=== PATIENT | female | born 1985 | race Caucasian/White ===

== ENCOUNTER 2022-05-08 14:57 | Inpatient (IN) ==
--- NOTE | 2022-05-08 15:18 | Emergency Department Note ---
Impression & Plan Sepsis, Hypomagnesemia, Elevated troponin, Pneumonia, Anemia, IV drug user ED Provider Note Name: VIPUL SKAGGS Age: 36 Sex: F Arrives Via: Ambulance Informant: Patient, EMS ED Provider: Yogesh New MD Chief Complaint: Illness Impression: As per impressions above Medical Decision Makin-year-old female with history of IV drug abuse, anxiety/depression arrives for evaluation of worsening illness over the last few days. She notes increasing edema in her hands and legs over the last month as well. She arrives tachycardic, febrile, mild hypoxia. Her examination reveals diffuse pedal edema poor lung sounds and tachycardia. Septic work-up was initiated and she was given empiric IV Zosyn. She received 2 L IV fluids to cover 30/kg. Her lactate did return elevated. Her initial LFTs are unremarkable. Her laboratory findings reveal normal white blood cell count, severe anemia, normal platelets. There is a single blast cells seen on manual smear. She has no evidence of meningitis, she has a soft nontender abdomen without peritonitis. Chest x-ray does show bilateral pneumonia. I suspect her primary issue is pneumonia causing sepsis. This is in addition to anemia which I suspect may be chronic given heme-negative stool. In the setting of sepsis and acute organ dysfunction I do feel that transfusion is indicated with a hemoglobin less than 8. She was given 1 unit PRBC and a second was crossmatched. She does have an elevated troponin though no chest pain and EKG without acute ischemia this and not feel this is consistent with ACS. Of course endocarditis is concerned and thus vancomycin was also given along with Zosyn. UA is not completely consistent with UTI but she does note she has been having some urinary burning recently. Following IV fluids she actually looks improved though still somewhat tachycardic and febrile . Further fluids were not ordered in the setting of the acute anemia. Prior Medical Record and Triage/Nursing Notes reviewed by Me Additional history obtained from chart Differentials:Viral syndrome, otitis, pharyngitis, pneumonia, influenza, meningitis, urinary tract infection, sepsis, bacteremia, as well as other pathologies. Vital Signs: reviewed and remarkable for fever and tachycardia Interventions: Normal saline bolus 2 L IV, Zosyn 4.5 g IV, vancomycin 20 mg/kg IV. 1 unit PRBCs IV, 1 g magnesium IV Labs:Reviewed and remarkable for extensive laboratory abnormalities including anemia, hypomag amongst multiple others. Imagin view chest x-ray bilateral infiltrates as per radiology EKG:Per My Interpretation: Indication weakness: sinus tach 136 bpm, qtc 469 with poor baseline. RBBB with no ectopy nor acute ischemia. No previous for comparison Cardiac/Tele Monitoring: Cardiac Monitoring: An Order was placed for continuous cardiac monitoring. The monitor shows a rate of 130 with a sinus tach rhythm. Consults:Dr Fabiola Marino/Onc -I discussed the case with sari-onc here at [facility] given the findings of acute anemia and a single blast cell noted. In the setting of severe sepsis and severe anemia he feels that we can keep the p atient here and continue to monitor her CBC before making any determination on whether blast is secondary to acute infection or other cause. Dr[facility] further management. I did discuss the case with critical care who is going to see the patient as well. Plan: Disposition:Hospitalization. Condition: Fair History of Present Illness:36-year-old female arrives for evaluation of illness. Patient notes 3 weeks of increasing swelling of her hands and feet. She states over the last few days increasing fatigue, fevers, chills. She has been using IV fentanyl for quite some time and then today was actually smoking some fentanyl. She called 911 due to feeling so ill. She arrives hypoxic on room air, tachycardic and febrile. She states she feels very unwell. She notes she has been having urinary burning for the last few days and some pain into both her sides. Denies any nausea, vomiting, syncope, chest pain, shortness of breath, headache, neck pain, rashes, bleeding/bruising or other concerning signs or symptoms. She does not have a history of hep C that she is aware of or any history of liver issues. Any exertion makes symptoms worse and rest makes better ROS: See above HPI for pertinent positives & negatives. A total of 10 systems reviewed and were otherwise negative. Past Medical History:IV drug abuse, anxiety/depression Past Surgical History:Denies previous surgeries Family History:Noncontributory/unknown Social History:IV drug abuse, unemployed Home Medications:Suboxone Allergies:No known drug allergies Vitals:Blood Pressure: 136/80, Pulse 138, RR 20, T 38.6C, O2 82% on RA Physical Exam: GENERAL: Patient is ill/unwell appearing and in moderate distress. EYES: No scleral icterus, unremarkable pupils. ENT: Mucous membranes dry, no nasal congestion. NECK: No masses appreciated, nomeningismus, trachea is midline. RESPIRATORY: Tachypnea/dyspnea. Clear to auscultation and equal bilaterally. No wheeze, no rhonchi. CARDIOVASCULAR: Tachy.No murmurs, rubs, gallops appreciated. GASTROINTESTINAL: Abdomen soft, non-tender, no peritonitis.Bowel sounds positive.No masses appreciated. BACK: No midline tenderness, no CVA tenderness EXTREMITIES: Normal motion all extremities, no cyanosis, 4+ edema bilateral lower legs, bilateral hand edema NEUROLOGIC: Alert and oriented, no acute motor or sensory deficits, no focal weakness, cranial nerves grossly intact. SKIN: No rash, no jaundice, no diaphoresis. PSYCH: Appropriate GCS: 15 ED Course: Times/Reassessments: improvement in vitals, feels a bit better. agreeable to hospitalization Critical Care: I have personally spent 35 minutes of critical care time in the direct management of this patient. Severe sepsis secondary to pneumonia in setting of severe anemia require transfusion and resuscitation. This was a life/limb threatening event. This 35 minutes is in excess of all separately billable procedures. Yogesh New MD Past Med/Surg History Social History Smoking Status: Current every day smoker Tobacco Type: Cigarettes Preferred Language: Mongolian Feels Safe at Home: Yes Allergies Allergies Allergy/AdvReac Type Severity Reaction Status Date / Time No Known Allergies Allergy Unknown Verified 05/08/22 16:58 Home Meds Home Medications Medication Instructions Recorded Confirmed No Known Home Medications 05/08/22 05/08/22 Results & Data (ED) Vital Signs Vital Signs - 24 hr 05/08/22 15:13 05/08/22 15:43 05/08/22 15:44 Temperature 39.6 C H Temperature Source Oral Pulse Rate 140 H Pulse Rate [Apical] Respiratory Rate 23 Respiratory Effort / Characteristics Short of Breath Blood Pressure 137/75 Blood Pressure [Left Arm] Blood Pressure Mean 95 Blood Pressure Mean [Left Arm] Blood Pressure Position Sitting Pulse Oximetry 88 L 97 Oxygen Delivery Method Room Air Nasal Cannula Nasal Cannula Oxygen Flow Rate 4 Sepsis Recent Fever Within 48 Hours No Sepsis New/Unexplained Change in Mental Status No Sepsis Action Taken by Nursing Physician Notified 05/08/22 16:49 05/08/22 17:42 05/08/22 17:59 Temperature 37.1 C Temperature Source Oral Pulse Rate 130 H 128 H Pulse Rate [Apical] 132 H Respiratory Rate 18 18 18 Respiratory Effort / Characteristics Blood Pressure 114/70 109/73 Blood Pressure [Left Arm] 117/65 Blood Pressure Mean 84 85 Blood Pressure Mean [Left Arm] 82 Blood Pressure Position Pulse Oximetry 97 100 100 Oxygen Delivery Method Nasal Cannula Oxygen Flow Rate 4 4 4 Sepsis Recent Fever Within 48 Hours Sepsis New/Unexplained Change in Mental Status Sepsis Action Taken by Nursing 05/08/22 18:14 05/08/22 18:44 Temperature 37.1 C 37.2 C Temperature Source Oral Oral Pulse Rate 128 H 128 H Pulse Rate [Apical] Respiratory Rate 18 18 Respiratory Effort / Characteristics Blood Pressure 110/70 112/77 Blood Pressure [Left Arm] Blood Pressure Mean 83 88 Blood Pressure Mean [Left Arm] Blood Pressure Position Pulse Oximetry 99 98 Oxygen Delivery Method Oxygen Flow Rate 4 4 Sepsis Recent Fever Within 48 Hours Sepsis New/Unexplained Change in Mental Status Sepsis Action Taken by Nursing Laboratory Data Result diagrams: 05/08/22 15:30 05/08/22 15:30 Lab Results 05/08/22 05/08/22 05/08/22 Range/Units 15:30 15:30 15:30 WBC 7.02 (4.8-10.8) K/ul RBC 2.30 L (3.93-5.22) M/uL Hgb 6.4 L* (12.0-16.0) g/dl Hct 19.1 L* (34.1-44.9) % MCV 83.0 (80.0-100.0) fL MCH 27.8 (25.0-34.0) pg MCHC 33.5 (32.0-36.0) g/dL RDW Std Deviation 43.4 (36.4-46.3) fL RDW Coeff of Rafiq 14.4 (11.5-14.5) % Plt Count 175 (130-400) K/uL MPV 9.1 L (9.4-12.3) fL Reticulocyte % (Auto) (0.5-2.0) % Reticulocyte # (0.02-0.10) 10^6/uL Neutrophils % (Manual) 94 % Lymphocytes % (Manual) 4 % Metamyelocytes % (Man) 1 % Blast Cells % (Manual) 1 % Neutrophils # (Manual) 6.60 H (1.4-6.5) K/uL Total Absolute Neuts 6.60 H (1.4-6.5) K/uL Lymphocytes # (Manual) 0.28 L (1.2-3.4) K/uL Total Abs Lymphocytes 0.28 L (1.2-3.4) K/uL Metamyelocytes # (Man) 0.07 H (0-0) K/uL Blast Cells # (Man) 0.07 H (0-0) K/uL Blood Smear Review Toxic Granulation 1+ Toxic Vacuolation 2+ Sodium 129 L (136-145) mmol/L Potassium 3.3 L (3.5-5.1) mmol/L Chloride 95 L (98-107) mmol/L Carbon Dioxide 26 (21-32) mmol/L Anion Gap 8 (3-11) BUN 10 (6-23) mg/dl Creatinine 0.43 L (0.6-1.2) mg/dl Est Cr Clr Drug Dosing 140.3 ml/min Est GFR ( Amer) 149.5 ml/min Est GFR (Non-Af Amer) 129.0 ml/min BUN/Creatinine Ratio 23.3 H (10-20) Glucose 160 H (70-99(Fasting)) mg/dl Lactate 2.6 H* (0.4-2.0) mmol/L Calcium 7.8 L (8.5-10.1) mg/dl Magnesium 1.3 L (1.7-2.4) mg/dl Total Bilirubin 1.0 (0.2-1.0) mg/dl Direct Bilirubin 0.3 H (0-0.2) mg/dl AST 16 (13-39) U/L ALT 14 (7-52) U/L Alkaline Phosphatase 132 H (34-104) U/L Total Creatine Kinase (26-192) U/L Troponin I High Sens 69.4 H* (0-14) pg/ml Total Protein 6.6 (6.0-8.3) gm/dl Albumin 2.3 L (3.4-5.0) gm/dl Vitamin B12 (180-914) pg/ml Folate (>5.38) ng/ml Procalcitonin (0-0.5) ng/ml Urine Color Urine Appearance (Clear) Urine pH (4.5-7.5) Ur Specific [place] (1.000-1.030) Urine Protein (Negative) Urine Glucose (UA) (Negative) Urine Ketones (Negative) Urine Blood (Negative) Urine Nitrite (Negative) Urine Bilirubin (Negative) Urine Urobilinogen (Negative) Ur Leukocyte Esterase (Negative) Urine WBC (Auto) (0-5) /hpf Urine RBC (Auto) (0-4) /hpf U Hyaline Cast (Auto) (0-5) /lpf U Epithel Cells (Auto) (0-5) /lpf Urine Bacteria (Auto) (Negative) SARS-CoV-2 (PCR) (Negative) Influenza Type A (PCR) (Neg) Influenza Type B (PCR) (Neg) RSV (RT-PCR) (Neg) Blood Type Blood Type Recheck Antibody Screen Crossmatch 05/08/22 05/08/22 05/08/22 Range/Units 15:30 15:30 15:54 WBC (4.8-10.8) K/ul RBC (3.93-5.22) M/uL Hgb (12.0-16.0) g/dl Hct (34.1-44.9) % MCV (80.0-100.0) fL MCH (25.0-34.0) pg MCHC (32.0-36.0) g/dL RDW Std Deviation (36.4-46.3) fL RDW Coeff of Rafiq (11.5-14.5) % Plt Count (130-400) K/uL MPV (9.4-12.3) fL Reticulocyte % (Auto) 5.3 H (0.5-2.0) % Reticulocyte # 0.12 H (0.02-0.10) 10^6/uL Neutrophils % (Manual) % Lymphocytes % (Manual) % Metamyelocytes % (Man) % Blast Cells % (Manual) % Neutrophils # (Manual) (1.4-6.5) K/uL Total Absolute Neuts (1.4-6.5) K/uL Lymphocytes # (Manual) (1.2-3.4) K/uL Total Abs Lymphocytes (1.2-3.4) K/uL Metamyelocytes # (Man) (0-0) K/uL Blast Cells # (Man) (0-0) K/uL Blood Smear Review Toxic Granulation Toxic Vacuolation Sodium (136-145) mmol/L Potassium (3.5-5.1) mmol/L Chloride (98-107) mmol/L Carbon Dioxide (21-32) mmol/L Anion Gap (3-11) BUN (6-23) mg/dl Creatinine (0.6-1.2) mg/dl Est Cr Clr Drug Dosing ml/min Est GFR ( Amer) ml/min Est GFR (Non-Af Amer) ml/min BUN/Creatinine Ratio (10-20) Glucose (70-99(Fasting)) mg/dl Lactate (0.4-2.0) mmol/L Calcium (8.5-10.1) mg/dl Magnesium (1.7-2.4) mg/dl Total Bilirubin (0.2-1.0) mg/dl Direct Bilirubin (0-0.2) mg/dl AST (13-39) U/L ALT (7-52) U/L Alkaline Phosphatase (34-104) U/L Total Creatine Kinase (26-192) U/L Troponin I High Sens (0-14) pg/ml Total Protein (6.0-8.3) gm/dl Albumin (3.4-5.0) gm/dl Vitamin B12 (180-914) pg/ml Folate (>5.38) ng/ml Procalcitonin 3.99 H (0-0.5) ng/ml Urine Color Urine Appearance (Clear) Urine pH (4.5-7.5) Ur Specific [place] (1.000-1.030) Urine Protein (Negative) Urine Glucose (UA) (Negative) Urine Ketones (Negative) Urine Blood (Negative) Urine Nitrite (Negative) Urine Bilirubin (Negative) Urine Urobilinogen (Negative) Ur Leukocyte Esterase (Negative) Urine WBC (Auto) (0-5) /hpf Urine RBC (Auto) (0-4) /hpf U Hyaline Cast (Auto) (0-5) /lpf U Epithel Cells (Auto) (0-5) /lpf Urine Bacteria (Auto) (Negative) SARS-CoV-2 (PCR) (Negative) Influenza Type A (PCR) (Neg) Influenza Type B (PCR) (Neg) RSV (RT-PCR) (Neg) Blood Type A Positive Blood Type Recheck Antibody Screen NEGATIVE Crossmatch See Detail 05/08/22 05/08/22 05/08/22 Range/Units 16:22 16:43 16:49 WBC (4.8-10.8) K/ul RBC (3.93-5.22) M/uL Hgb (12.0-16.0) g/dl Hct (34.1-44.9) % MCV (80.0-100.0) fL MCH (25.0-34.0) pg MCHC (32.0-36.0) g/dL RDW Std Deviation (36.4-46.3) fL RDW Coeff of Rafiq (11.5-14.5) % Plt Count (130-400) K/uL MPV (9.4-12.3) fL Reticulocyte % (Auto) (0.5-2.0) % Reticulocyte # (0.02-0.10) 10^6/uL Neutrophils % (Manual) % Lymphocytes % (Manual) % Metamyelocytes % (Man) % Blast Cells % (Manual) % Neutrophils # (Manual) (1.4-6.5) K/uL Total Absolute Neuts (1.4-6.5) K/uL Lymphocytes # (Manual) (1.2-3.4) K/uL Total Abs Lymphocytes (1.2-3.4) K/uL Metamyelocytes # (Man) (0-0) K/uL Blast Cells # (Man) (0-0) K/uL Blood Smear Review Toxic Granulation Toxic Vacuolation Sodium (136-145) mmol/L Potassium (3.5-5.1) mmol/L Chloride (98-107) mmol/L Carbon Dioxide (21-32) mmol/L Anion Gap (3-11) BUN (6-23) mg/dl Creatinine (0.6-1.2) mg/dl Est Cr Clr Drug Dosing ml/min Est GFR ( Amer) ml/min Est GFR (Non-Af Amer) ml/min BUN/Creatinine Ratio (10-20) Glucose (70-99(Fasting)) mg/dl Lactate (0.4-2.0) mmol/L Calcium (8.5-10.1) mg/dl Magnesium (1.7-2.4) mg/dl Total Bilirubin (0.2-1.0) mg/dl Direct Bilirubin (0-0.2) mg/dl AST (13-39) U/L ALT (7-52) U/L Alkaline Phosphatase (34-104) U/L Total Creatine Kinase 49 (26-192) U/L Troponin I High Sens (0-14) pg/ml Total Protein (6.0-8.3) gm/dl Albumin (3.4-5.0) gm/dl Vitamin B12 (180-914) pg/ml Folate (>5.38) ng/ml Procalcitonin (0-0.5) ng/ml Urine Color Dark Yellow Urine Appearance Clear (Clear) Urine pH 6.0 (4.5-7.5) Ur Specific [place] 1.013 (1.000-1.030) Urine Protein 1+ H (Negative) Urine Glucose (UA) Negative (Negative) Urine Ketones Negative (Negative) Urine Blood 1+ H (Negative) Urine Nitrite Negative (Negative) Urine Bilirubin Negative (Negative) Urine Urobilinogen Positive H (Negative) Ur Leukocyte Esterase 1+ H (Negative) Urine WBC (Auto) >30 H (0-5) /hpf Urine RBC (Auto) 5-10 H (0-4) /hpf U Hyaline Cast (Auto) 1-5 (0-5) /lpf U Epithel Cells (Auto) >30 H (0-5) /lpf Urine Bacteria (Auto) Negative (Negative) SARS-CoV-2 (PCR) (Negative) Influenza Type A (PCR) (Neg) Influenza Type B (PCR) (Neg) RSV (RT-PCR) (Neg) Blood Type Blood Type Recheck A Positive Antibody Screen Crossmatch 05/08/22 05/08/22 05/08/22 Range/Units 16:50 18:01 18:35 WBC (4.8-10.8) K/ul RBC (3.93-5.22) M/uL Hgb (12.0-16.0) g/dl Hct (34.1-44.9) % MCV (80.0-100.0) fL MCH (25.0-34.0) pg MCHC (32.0-36.0) g/dL RDW Std Deviation (36.4-46.3) fL RDW Coeff of Rafiq (11.5-14.5) % Plt Count (130-400) K/uL MPV (9.4-12.3) fL Reticulocyte % (Auto) (0.5-2.0) % Reticulocyte # (0.02-0.10) 10^6/uL Neutrophils % (Manual) % Lymphocytes % (Manual) % Metamyelocytes % (Man) % Blast Cells % (Manual) % Neutrophils # (Manual) (1.4-6.5) K/uL Total Absolute Neuts (1.4-6.5) K/uL Lymphocytes # (Manual) (1.2-3.4) K/uL Total Abs Lymphocytes (1.2-3.4) K/uL Metamyelocytes # (Man) (0-0) K/uL Blast Cells # (Man) (0-0) K/uL Blood Smear Review Toxic Granulation Toxic Vacuolation Sodium (136-145) mmol/L Potassium (3.5-5.1) mmol/L Chloride (98-107) mmol/L Carbon Dioxide (21-32) mmol/L Anion Gap (3-11) BUN (6-23) mg/dl Creatinine (0.6-1.2) mg/dl Est Cr Clr Drug Dosing ml/min Est GFR ( Amer) ml/min Est GFR (Non-Af Amer) ml/min BUN/Creatinine Ratio (10-20) Glucose (70-99(Fasting)) mg/dl Lactate 3.5 H* (0.4-2.0) mmol/L Calcium (8.5-10.1) mg/dl Magnesium (1.7-2.4) mg/dl Total Bilirubin (0.2-1.0) mg/dl Direct Bilirubin (0-0.2) mg/dl AST (13-39) U/L ALT (7-52) U/L Alkaline Phosphatase (34-104) U/L Total Creatine Kinase (26-192) U/L Troponin I High Sens (0-14) pg/ml Total Protein (6.0-8.3) gm/dl Albumin (3.4-5.0) gm/dl Vitamin B12 445 (180-914) pg/ml Folate > 22.30 (>5.38) ng/ml Procalcitonin (0-0.5) ng/ml Urine Color Urine Appearance (Clear) Urine pH (4.5-7.5) Ur Specific [place] (1.000-1.030) Urine Protein (Negative) Urine Glucose (UA) (Negative) Urine Ketones (Negative) Urine Blood (Negative) Urine Nitrite (Negative) Urine Bilirubin (Negative) Urine Urobilinogen (Negative) Ur Leukocyte Esterase (Negative) Urine WBC (Auto) (0-5) /hpf Urine RBC (Auto) (0-4) /hpf U Hyaline Cast (Auto) (0-5) /lpf U Epithel Cells (Auto) (0-5) /lpf Urine Bacteria (Auto) (Negative) SARS-CoV-2 (PCR) NEGATIVE (Negative) Influenza Type A (PCR) Negative (Neg) Influenza Type B (PCR) Negative (Neg) RSV (RT-PCR) Negative (Neg) Blood Type Blood Type Recheck Antibody Screen Crossmatch Administered Medications Potassium Chloride (K Junaid / Wtr) 10 meq in 100 mls @ 100 mls/hr IV Q1H NICOLE Stop: 05/08/22 21:44 Last Admin: 05/08/22 18:39 Dose: 100 mls/hr Documented By: OL Discontinued Medications Acetaminophen (Acetaminophen 500 Mg Tab) 1,000 mg PO NOW STA Stop: 05/08/22 17:06 Last Admin: 05/08/22 18:26 Dose: 1,000 mg Documented By: OL Sodium Chloride (Nss 1000ml) 1,000 mls @ 999 mls/hr IV .Q1H1M NICOLE Stop: 05/08/22 17:15 Last Infusion: 05/08/22 17:57 Dose: 0 mls/hr Documented By: Admin: 05/08/22 16:52 Dose: 999 mls/hr Documented By: Infusion: 05/08/22 16:50 Dose: 999 mls/hr Documented By: Admin: 05/08/22 15:49 Dose: 999 mls/hr Documented By: OL Piperacillin Sod/Tazobactam Sod (Zosyn) 4.5 gm in 120 mls @ 240 mls/hr IV NOW ONE Stop: 05/08/22 16:38 Last Infusion: 05/08/22 16:58 Dose: 0 mls/hr Documented By: Admin: 05/08/22 16:21 Dose: 240 mls/hr Documented By: AM Vancomycin HCl 1,000 mg/ (Sodium Chloride) 520 mls @ 200 mls/hr IV NOW ONE Stop: 05/08/22 18:44 Last Admin: 05/08/22 17:22 Dose: 200 mls/hr Documented By: OL Magnesium Sulfate/Dextrose (Magnesium Sulfate / D5w) 1 gm in 100 mls @ 100 mls/hr IV NOW STA Stop: 05/08/22 17:44 Last Infusion: 05/08/22 17:57 Dose: 0 mls/hr Documented By: Admin: 05/08/22 16:52 Dose: 100 mls/hr Documented By: OL Magnesium Sulfate/Dextrose (Magnesium Sulfate / D5w) 1 gm in 100 mls @ 50 mls/hr IV Q2H NICOLE Stop: 05/08/22 19:44 Last Admin: 05/08/22 18:57 Dose: 50 mls/hr Documented By: OL Imaging Data Radiologist's Impression: Chest X-Ray 05/08/22 15:12 SINGLE VIEW CHEST CLINICAL HISTORY: Sepsis. FINDINGS: An AP, portable, upright chest radiograph is obtained. No prior studies are available for comparison at the time of dictation. The cardiomediastinal silhouette is unremarkable. Multifocal airspace consolidation is seen throughout both lungs. No large pleural effusion or pneumothorax is lauren ntified. The bony thorax is grossly intact. IMPRESSION: Multifocal airspace consolidation is seen throughout both lungs. Given the history of sepsis this likely represents multifocal pneumonia. Radiographic follow-up to resolution is recommended to exclude the possibility o f underlying pulmonary lesions. ACT 112: Negative or not required by law. Electronically signed by: Dano Roman M.D. 05/08/2022 4:00 PM Discharge Plan Visit Data Chief Complaint: Overdose (Accidental) ED Provider: Yogesh New Discharge Problem: Sepsis, Hypomagnesemia, Elevated troponin, Pneumonia, Anemia, IV drug user Forms Stand Alone Forms: Double Encore Prescriptions Prescriptions: No Action No Known Home Medications Referrals Referrals: Lenny Cleary MD [Primary Care Provider] -
[2022-05-08] MEDS: SODIUM CHLORIDE 0.9% 1000ML 1,000 ML IV SCH ×2 (15:49→16:52)
--- NOTE | 2022-05-08 16:01 | XRay Report ---
SINGLE VIEW CHEST CLINICAL HISTORY: Sepsis. FINDINGS: An AP, portable, upright chest radiograph is obtained. No prior studies are available for c omparison at the time of dictation. The cardiomediastinal silhouette is unremarkable. Multifocal airs pace consolidation is seen throughout both lungs. No large pleural effusion or pneumothorax is identi fied. The bony thorax is grossly intact. IMPRESSION: Multifocal airspace consolidation is seen throughout both lungs. Given the history of sep sis this likely represents multifocal pneumonia. Radiographic follow-up to resolution is recommended to exclude the possibility of underlying pulmonary lesions. ACT 112: Negative or not required by law. Electronically signed by: Dano Roman M.D. 05/08/2022 4:00 PM
[2022-05-08] MEDS ORDERED: VANCOMYCIN CONSULT ACTIVE PRN (16:09)
[2022-05-08] MEDS ORDERED: VANCOMYCIN HCL 1,000 MG in SODIUM CHLORIDE 0.9% 500 ML IV ONE (16:09)
[2022-05-08] MEDS ORDERED: PIPERACILLIN/TAZOBACTAM 4.5 GM/120 ML BAG IV ONE (16:09)
[2022-05-08 16:25] LABS: Albumin Level 2.3 gm/dl (3.4-5.0); BUN Creatinine Ratio 23.3 (10-20); Bilirubin Direct 0.3 mg/dl (0-0.2); Calcium 7.8 mg/dl (8.5-10.1); Creatinine Clr Calc Pharmacy 140.3 ml/min; Est GFR (African American) 149.5 ml/min; Magnesium 1.3 mg/dl (1.7-2.4); Potassium 3.3 mmol/L (3.5-5.1); Total Protein 6.6 gm/dl (6.0-8.3)
[2022-05-08] MEDS ORDERED: SODIUM CHLORIDE 0.9% 250 ML IV PRN ×2 (16:32→21:11)
[2022-05-08 16:33] LABS: Hematocrit (blood only) 19.1 % (34.1-44.9); Hemoglobin 6.4 g/dl (12.0-16.0); Mean Corpuscular Hemoglobin 27.8 pg (25.0-34.0); Mean Corpuscular Hgb Conc 33.5 g/dL (32.0-36.0); Mean Platelet Volume 9.1 fL (9.4-12.3); Platelet Count 175 K/uL (130-400); RDW Coefficient of Variation 14.4 % (11.5-14.5); RDW Standard Deviation 43.4 fL (36.4-46.3); White Blood Count 7.02 K/ul (4.8-10.8)
[2022-05-08 16:35] LABS: ALC (manual) 0.28 K/uL (1.2-3.4); Blast # (manual) 0.07 K/uL (0-0); Blast Cells % (manual) 1 %; Lymphocytes # (manual) 0.28 K/uL (1.2-3.4); Lymphocytes % (manual) 4 %; Metamyelocytes # (manual) 0.07 K/uL (0-0); Metamyelocytes % (manual) 1 %; Neutrophils % (manual) 94 %; Toxic Granulation 1+; Toxic Vacuolation 2+
[2022-05-08] MEDS ORDERED: MAGNESIUM SULFATE / D5W 1 GM/100 ML BAG IV STA (16:45)
[2022-05-08 16:48] LABS: Appearance Urine Clear (Clear); Bacteria Urine Automated Negative (Negative); Bilirubin Urine Negative (Negative); Blood Urine 1+ (Negative); Color Urine Dark Yellow; Epithelial Cell Urine Auto >30 /lpf (0-5); Glucose Urine UA Negative (Negative); Ketones Urine Negative (Negative); Leukocyte Esterase Urine 1+ (Negative); Nitrite Urine Negative (Negative); Protein Urine 1+ (Negative); Specific Gravity Urine 1.013 (1.000-1.030); Urobilinogen Urine Positive (Negative); WBC Urine Automated >30 /hpf (0-5)
[2022-05-08 16:50] LABS: Reticulocyte % 5.3 % (0.5-2.0); Reticulocytes # 0.12 10^6/uL (0.02-0.10)
[2022-05-08] MEDS ORDERED: ACETAMINOPHEN 500 MG TAB PO STA (17:05)
[2022-05-08] MEDS ORDERED: NORMOSOL-R 1,000 ML IV ONE ×2 (17:16→20:54)
[2022-05-08] MEDS ORDERED: MAGNESIUM SULFATE / D5W 1 GM/100 ML BAG IV SCH (17:45)
[2022-05-08 17:49] LABS: Vitamin B12 445 pg/ml (180-914)
[2022-05-08] MEDS: POTASSIUM CHLORIDE / WTR 10 MEQ/100 ML PLCT IV SCH ×3 (18:39→22:15)
--- NOTE | 2022-05-08 18:41 | Critical Care Consultation ---
Date of Consultation May 08, 2022 Assessment & Plan (1) Sepsis: Reason Critically Ill: 36-year-old female here with a PMHx significant for IV drug use, anxiety and depression, who presented with fatigue and lethargy and who was admitted for management of methamphetamine withdrawal, sepsis. Neuro - [facility] ICU: NEGATIVE Sedation: None Analgesia: None * Cardiac - Tachycardia: Suspect this is compensatory, given patient's poor p.o. intake and peripheral edema. However, this could also represent start of opiate/benzodiazepine withdrawal (vs infection). Low suspicion for GI bleed, as fecal occult blood test negative for heme. * IV fluid resuscitation as needed * EKG as needed Elevated troponin: Suspect demand ischemia, again given the absence of chest pain, overall noncardiac presentation. * Repeat troponin Q6. Discontinue labs if plateauing or downtrending. Respiratory - Acute hypoxic respiratory failure: Could be 2/2 to multifocal pneumonia. Fatigue, hypoxia could also be 2/2 bacterial endocarditis, given patient's history of IV drug use. * Continue O2 support via nasal cannula. Wean as tolerated. * CT angio per PE protocol * Echocardiogram * Empiric antimicrobial coverage: Zosyn, vancomycin GI - RUQ pain: Etiology unclear. Patient did not appear to have suprapubic pain on exam. * CT abdomen/pelvis * Bowel regimen for constipation * N.p.o. RENAL/LYTES - Hypomagnesemia, hypokalemia, hyponatremia * Trend BMP. Replace lytes as needed. - Asymptomatic bacteriuria: UA positive for leukocyte esterase, protein. Patient, however, is asymptomatic. * Awaiting urine culture results * Rodrigues catheter ENDO - * HEME - Anemia: Unclear etiology, though suspect hepatic process (cirrhosis, hep C). FOBT negative. Now s/p pRBC x2 units. * Trend CBC. Transfuse as needed. * Path consult peripheral smear for blast cells seen on CBC. ID - Pneumonia: * Empiric coverage with Zosyn, vancomycin. Awaiting blood culture results, sensitivities. INTEGUMENTARY - * LINES/IV ACCESS - PIVs intact. DVT PROPHYLAXIS - * Heparin gtt. Thank you for allowing us to be part of this patient's care. Please refer to Dr. Baum's documentation for any further recommendations. (2) Anemia: (3) Abdominal pain: (4) Pedal edema: (5) IV drug user: (6) Hypomagnesemia: (7) Elevated troponin: (8) Fever: (9) Pneumonia: Supervising Physician Co-Signing Physician Notes I was advised of this patient by telephone. Obtained advanced imaging to [facility] er evaluate for probable septic emboli. Empiric broad-spectrum antibiotics. Echo ordered. Will need resuscitation and evaluation for possible evaluation by CT surgery should there be severe tyonek valve infective endocarditis. History of Present Illness History of Present Illness Minerva is a 36-year-old woman history of IV drug use, anxiety, and depression, who came to the emergency room with a complaint of fatigue and illness. She reports her symptoms began 4 days ago after smoking fentanyl, which she also uses in IV form. She experienced severe right-sided back pain without radiation that became radiating a day later, before resolving. She also reports profound fatigue and swelling of her hands and feet, also x4 days. She says this had never happened to her before. She denies nausea, headache, lightheadedness, chest pain, blood in stool, or back/flank pain. ED course was notable for tachycardia, hypoxia, and a fever of 39.6 C. Labs were notable for anemia of 6.8, lactate of 2.6, troponin of 69.4, urine drug screen positive for methamphetamines, MDMA, and benzodiazepines. CXR showed bilateral multifocal airspace consolidation concerning for multifocal pneumonia. She received pRBC x2 units, Normosol bolus x1, and was started on empiric antibiotics (Zosyn, vancomycin). ICU was consulted for transfer for management of fentanyl withdrawal, sepsis. Allergies Allergy/AdvReac Type Severity Reaction Status Date / Time No Known Allergies Allergy Unknown Verified 05/08/22 16:58 Home Medications Medication Instructions Recorded Confirmed Type No Known Home Medications 05/08/22 05/08/22 History Patient History Medical History Anxiety Depression Drug abuse Fentanyl -IV and smoking IV drug user Surgical History No significant past surgical history Family History (Updated 05/08/22 @ 19:51 by BRETT Vázquez) Aunt Cancer Social History Smoking Status: Current every day smoker Tobacco Type: Cigarettes Second Hand Exposure: No; Do You Dip or Chew Tobacco: No; Tobacco Cessation Education Requested by Patient: No Hx Alcohol Use: No Hx Substance Use: Yes Non-Prescribed Medications: Inhalents and IV Drugs Non- Prescribed Medications Comment: Fentanyl Last Used Substance: Just Prior to Arrival Last Used Substance Other:: Pt stated that she smoked Fentanyl at noon prior to calling EMS Preferred Language: Occitan Communication Ability: Effective Marketing Secretary Required: No Beliefs That Will Affect Care: None Current Living Situation: Alone Feels Safe at Home: Yes Safety Concerns: Feels Safe At This Time Assistive Devices: None Review of Systems Review of Systems: All systems reviewed & are unremarkable except as noted in HPI & below Physical Exam Physical Exam: General: Gaunt, ill-appearing woman, who is otherwise alert, oriented and in no acute distress. HEENT: Poor dentition, with profound enamel erosion. Dry mucous membranes. Neck: Normal ROM. CV: Tachycardic, regular rhythm. No murmurs gallops or rubs. Respiratory: Normal respiratory effort. Lungs noisy on auscultation. Unable to appreciate crackles, rhonchi, or wheezes. Abdomen: Soft, nondistended abdomen. No bruits heard on auscultation. RUQ tenderness to mild/moderate palpation. No suprapubic tenderness. No guarding or rebound. Extremities: Capillary refill <2 sec. 2+ dp equal bilaterally. Bilateral pitting pedal edema, L >R. Neuro: Alert and oriented x3. Skin: No rashes, bruises, or erythema. Results & Data Results & Data ([facility]) Vital Signs (Past 12 Hours) Vital Signs Temp Pulse Pulse Resp BP BP Pulse Ox 05/08/22 18:14 37.1 C 128 H 18 110/70 99 05/08/22 17:59 37.1 C 128 H 18 109/73 100 05/08/22 17:42 130 H 18 114/70 100 05/08/22 16:49 132 H 18 117/65 97 05/08/22 15:44 97 05/08/22 15:43 05/08/22 15:13 39.6 C H 140 H 23 137/75 88 L O2 Del Method O2 Flow Rate 05/08/22 18:14 4 05/08/22 17:59 4 05/08/22 17:42 4 05/08/22 16:49 Nasal Cannula 4 05/08/22 15:44 Nasal Cannula 05/08/22 15:43 Nasal Cannula 4 05/08/22 15:13 Room Air Resident Activity Tracking Resident Involvement: Resident Care Provided Care Provided: Adult Hospital Medicine
[2022-05-08 19:40] LABS: Influenza A virus by PCR Negative (Neg); Influenza B virus by PCR Negative (Neg); RSV by PCR Negative (Neg); SARS CoV2 RNA(COVID-19) InHosp NEGATIVE (Negative)
--- NOTE | 2022-05-08 20:03 | History & Physical Report ---
Date of Service May 08, 2022 Assessment & Plan (1) Severe sepsis: (2) Pneumonia: (3) Acute respiratory failure with hypoxia: Plan: Admit ICU Patient presenting from home with reports of generalized weakness and body aches. In the ED, found to be febrile and tachycardic with elevated lactic acid. CXR shows multifocal pneumonia Patient hypoxic on room air at 88%, currently requiring 4 L via nasal cannula. S/p Vanco and Zosyn in the ED, continue with Follow urine and blood cultures Continue IVF resuscitation, trend lactate Given history of IV drug abuse, concern for possible septic pulmonary embolism. CTA chest ordered as well as CT ABD/pelvis. Echocardiogram to evaluate for endocarditis Case discussed with Dr. Baum (4) Anemia: Plan: Hgb 6.4. Platelets stable at 175K. Stool heme-negative in ED Single blast cells noted on differential. ED discussed with hematology --this is likely felt to be due to sepsis. Will trend it differential continue to monitor. Given history of IV drug abuse, concern for possible hemolytic anemia secondary to endocarditis Transfuse 1 unit PRBC Follow CBC (5) IV drug user: Plan: Patient reports using fentanyl --last IV usage was about 1 month ago, patient reports she currently smokes fentanyl " all day long". Last use being just prior to arrival. (6) Elevated troponin: Plan: HS trop 69.4 Likely demand ischemia in the setting of sepsis Continue to trend troponin (7) Electrolyte abnormality: Plan: Na+ 129, K+ 3.3, Mg +1.4 Replace, follow BMP (8) Lower extremity edema: Plan: Etiology unclear at this time Consider BL LE Doppler Echo Also noted to have hypoalbuminemia (9) DVT prophylaxis: Plan: SCDs due to anemia History of Present Illness Chief Complaint: Weakness, body aches Primary Care Provider: Lenny Cleary MD 36-year-old female with PMH depression, anxiety, drug abuse (fentanyl via IV and smoking), and other problems listed below who presents to the ED for evaluation of generalized weakness and body aches. Patient reports that she has been feeling sick for about the past 1 month. Patient was seen at [facility] and diagnosed with pneumonia and UTI. Patient was discharged on prednisone and levofloxacin. Patient reports completing both courses of the medications. Patient reports no improvement in her symptoms. She reports feeling extremely weak. She also notes body aches and feeling feverish however did not check her temperature. She reports a productive cough. She states that she has bilateral lower rib pain with taking a deep breath. Patient is noted to have bilateral lower extremity edema on exam. She states this has been present for about the past 1 week. No chest pain or palpitations. Denies lightheadedness, dizziness, diaphoresis, syncopal events. No abdominal pain, nausea, vomiting, diarrhea. Denies urinary symptoms. Patient states she last used IV fentanyl about 1 month ago however smokes fentanyl " all day long", last using this morning prior to calling EMS. In the ED, patient was found febrile at 39.6, tachycardic, elevated lactate. Labs also show anemia with Hgb 6.4. Differential shows a single blast cell. There are several electrolyte abnormalities noted with Na+ 129, K+ 3.3, Mg +1.3, CA +7.8. HS troponin 69.4. Allergies Allergy/AdvReac Type Severity Reaction Status Date / Time No Known Allergies Allergy Unknown Verified 05/08/22 16:58 Home Medications Medication Instructions Recorded Confirmed Type No Known Home Medications 05/08/22 05/08/22 History Past Med/Surg History Medical History Anxiety Depression Drug abuse Fentanyl -IV and smoking IV drug user Surgical History No significant past surgical history Family History (Updated 05/08/22 @ 19:51 by BRETT Vázquez) Aunt Cancer Social History Smoking Status: Current every day smoker Tobacco Type: Cigarettes Second Hand Exposure: No; Do You Dip or Chew Tobacco: No; Tobacco Cessation Education Requested by Patient: No Hx Alcohol Use: No Hx Substance Use: Yes Non-Prescribed Medications: Inhalents and IV Drugs Non-Prescribed Medications Comment: Fentanyl Last Used Substance: Just Prior to Arrival Last Used Substance Other:: Pt stated that she smoked Fentanyl at noon prior to calling EMS Preferred Language: Iraqi Communication Ability: Effective Director Life Insurance Required: No Beliefs That Will Affect Care: None Current Living Situation: Alone Feels Safe at Home: Yes Safety Concerns: Feels Safe At This Time Assistive Devices: None Review of Systems Review of Systems: ROS per HPI, all other systems reviewed and negative Physical Exam Constitutional: WD/WN, vitals as above + ill appearing and + disheveled; no acute distress Eyes: PERRL, conjunctivae normal, anicteric sclerae ENMT: external ear and nose normal, oropharynx normal Mouth: + poor dentition Respiratory: normal respiratory effort; no respiratory distress Auscul tation: + rhonchi (Bilateral bases) Cardiovascular: Rate/Rhythm: regular rhythm and + tachycardic Vessels: normal peripheral pulses Extremities: + edema (+2-3 edema BLE) Gastrointestinal (Abdomen): normal bowel sounds, soft, nontender, no hepatosplenomegaly Musculoskeletal: no cyanosis or clubbing, extremities motor strength 5/5 Skin: no rashes, warm and dry Neurologic: PERRL, EOMI, accommodation nl, no face palsy, no dysarthria Psychiatric: Orientation: alert and oriented x 3 Affect: + anxious affect and + tearful affect Results & Data Results & Data ([facility]) Vital Signs (Past 12 Hours) Vital Signs Temp Pulse Pulse Resp BP BP Pulse Ox 05/08/22 18:44 37.2 C 128 H 18 112/77 98 05/08/22 18:14 37.1 C 128 H 18 110/70 99 05/08/22 17:59 37.1 C 128 H 18 109/73 100 05/08/22 17:42 130 H 18 114/70 100 05/08/22 16:49 132 H 18 117/65 97 05/08/22 15:44 97 05/08/22 15:43 05/08/22 15:13 39.6 C H 140 H 23 137/75 88 L O2 Del Method O2 Flow Rate 05/08/22 18:44 4 05/08/22 18:14 4 05/08/22 17:59 4 05/08/22 17:42 4 05/08/22 16:49 Nasal Cannula 4 05/08/22 15:44 Nasal Cannula 05/08/22 15:43 Nasal Cannula 4 05/08/22 15:13 Room Air Laboratory Results Short CBC 05/08/22 Range/Units 15:30 WBC 7.02 (4.8-10.8) K/ul Hgb 6.4 L* (12.0-16.0) g/dl Hct 19.1 L* (34.1-44.9) % Plt Count 175 (130-400) K/uL BMP 05/08/22 15:30 Sodium 129 L Potassium 3.3 L Chloride 95 L Carbon Dioxide 26 BUN 10 Creatinine 0.43 L Glucose 160 H Calcium 7.8 L Cardiac Enzymes 05/08/22 Range/Units 16:49 Total Creatine Kinase 49 (26-192) U/L Liver Function 05/08/22 Range/Units 15:30 Total Bilirubin 1.0 (0.2-1.0) mg/dl Direct Bilirubin 0.3 H (0-0.2) mg/dl AST 16 (13-39) U/L ALT 14 (7-52) U/L Alkaline Phosphatase 132 H (34-104) U/L Albumin 2.3 L (3.4-5.0) gm/dl Urine 05/08/22 Range/Units 16:22 Urine Color Dark Yellow Urine Appearance Clear (Clear) Urine pH 6.0 (4.5-7.5) Ur Specific [place] 1.013 (1.000-1.030) Urine Protein 1+ H (Negative) Urine Glucose (UA) Negative (Negative) Diagnostic Findings Chest X-Ray 05/08/22 15:12 SINGLE VIEW CHEST CLINICAL HISTORY: Sepsis. FINDINGS: An AP, portable, upright chest radiograph is obtained. No prior studies are available for comparison at the time of dictation. The cardiomediastinal silhouette is unremarkable. Multifocal airspace consolidation is seen throughout both lungs. No large pleural effusion or pneumothorax is identified. The bony thorax is grossly intact. IMPRESSION: Multifocal airspace consolidation is seen throughout both lungs. Given the history of sepsis this likely represents multifocal pneumonia. Radiographic follow-up to resolution is recommended to exclude the possibility of underlying pulmonary lesions. ACT 112: Negative or not required by law. Electronically signed by: Dano Roman M.D. 05/08/2022 4:00 PM Code Status & VTE Plan VTE Prophylaxis Plan VTE Prophylaxis will be ordered: Yes Supervising Physician Co-Signing Physician Notes This patient is a 36-year-old drug abuser who smokes fentanyl powder with occasional IV drug use who presents with severe sepsis, pneumonia and acute respiratory failure with hypoxia. Chest x-ray reveals multifocal pneumonia and she is requiring supplemental oxygen. She is a poor historian but denies that she was trying to hurt her self. She states that since the age of 18 she has been using drugs as she was unable to deal with her mother's . She reports having children of her own and states that her child just had her first grandbaby. She has anemia with differential showing concern for blast cells. Peripheral smear has been ordered. Hemolytic anemia also considered. No evidence of GI blood loss at this time. In the ER she was transfused 1 unit of PRBCs. She reports that she would like to get off fentanyl and is interested in rehab. We discussed that there are options for subsidized payment. Currently she is mostly upset about withdrawal symptoms including hot flashes and generalized pain. She has multiple electrolytes abnormalities as above. On physical exam she is well-nourished well-developed and in mild distress. She appears to be mentating normally and cardiopulmonary exam is within normal limits. She has poor dentition and evidence of dehydration with crusting around the mouth. Overall she is being admitted to the ICU with multiple systems affected. She is tachycardic, withdrawing from fentanyl, has elevated troponin likely suspicious of demand ischemia. Possibility of endocarditis is also present which may be contributing to a hemolytic anemia picture. She may have some acute malignancy with the evidence of the blast cell although this may also be from sepsis. She has pneumonia concerning for possible septic embolus and is requiring oxygen supplementation. She has multiple electrolyte abnormalities present. Please see ICU admission note for additional plan specifics. DO Enrrique
[2022-05-08] MEDS ORDERED: OPTIRAY 320 500ml IV ONE (20:24)
[2022-05-08 20:44] LABS: Amphetamines+Metham, Urine Neg (Neg); Barbiturates, Urine Neg (Neg); Benzodiazepine, Urine Neg (Neg); Cocaine, Urine Neg (Neg); MDMA (Ecstacy), Urine Pos (Neg); Methadone, Urine Neg (Neg); Opiate, Urine Neg (Neg); Phencyclidine, Urine Neg (Neg)
[2022-05-08] MEDS ORDERED: ICU PROTOCOL FOR HYPERGLYCEMIA PRN (20:54)
--- NOTE | 2022-05-08 20:56 | CT Scan Report ---
CT ANGIOGRAPHY OF THE CHEST, PULMONARY EMBOLUS PROTOCOL CLINICAL HISTORY: Sepsis. COMPARISON STUDY: Chest radiograph performed earlier today. TECHNIQUE: Following IV administration of 114 mL of Optiray, helical axial images of the chest were o btained utilizing the pulmonary embolus protocol. Maximal intensity projections and sagittal and cor onal reformats were viewed on an independent 3D workstation. IV contrast was administered without co mplication. Automated exposure control was utilized for the study. A dose lowering technique was ut ilized adhering to the principles of ALARA. CT DOSE: 549.27 mGy.cm FINDINGS: Note is made of multiple pulmonary emboli. These are most numerous within the bilateral lo wer lobes. These include emboli within the left lower lobe pulmonary artery. In addition, there are n umerous ill-defined nodules, many of which are cavitary, as well as cavitary foci of consolidation wi thin the lungs. These include a 3.9 cm irregular cavitary focus of consolidation within the left lung apex. Small bilateral pleural effusions are noted. Lungs are suboptimally assessed due to respirator y motion. There is underlying emphysema. Small bilateral pleural effusions are present. There is no p neumothorax. There is no thoracic aortic dissection. Size of the heart is normal. No definite CT evid ence for right heart strain. There are mildly enlarged mediastinal and bilateral hilar lymph nodes. P lease note that the abdomen and pelvis CT will be reported separately. IMPRESSION: 1. Numerous bilateral pulmonary emboli, as described above. These favor septic pulmonary emboli. Find ings discussed with Dr. Baum at time of dictation. 2. Multifocal cavitary consolidation and cavitary nodules consistent with septic pulmonary emboli. An underlying neoplasm is considered much less likely however a follow-up chest CT in 2 months to ensur e resolution is recommended. 3. Small bilateral pleural effusions. No pneumothorax. 4. Emphysema. 5. Mildly enlarged mediastinal and bilateral hilar lymph nodes. These are probably reactive but shoul d be assessed on follow-up chest CT. ACT 112: Negative or not required by law. Electronically signed by: Lazaro Askew M.D. 05/08/2022 8:54 PM
[2022-05-08] MEDS ORDERED: HEPARIN SOD (PORCINE) 1000 UNIT/ML IV ONE (21:15)
--- NOTE | 2022-05-08 21:18 | CT Scan Report ---
CT OF THE ABDOMEN AND PELVIS WITH CONTRAST CLINICAL HISTORY: Sepsis. COMPARISON STUDY: None. TECHNIQUE: Following IV administration of 114 mL of Optiray, axial images of the abdomen and pelvis w ere obtained from the lung bases to the proximal femurs. Images were reviewed in the axial, sagittal, and coronal planes. IV contrast was administered without complication. Automated exposure control w as utilized for the study. A dose lowering technique was utilized adhering to the principles of BECCA Cuevas. FINDINGS: Please note that the chest CT will be reported separately. Numerous pulmonary emboli with c avitary pulmonary nodules and cavitary foci of consolidation are better depicted on that exam. There is emphysema. Small bilateral pleural effusions are present. No pneumatosis, free air or portal venous gas is present. Periportal edema is noted. Gallbladder wall thickening is also present. There are no hepatic lesions. There is mild hepatosplenomegaly. Several small hypodense wedge-shaped subcapsular foci within the spleen measure up to 2.6 cm. These favor spl enic infarcts. There is no biliary or pancreatic ductal dilatation. Adrenal glands and pancreas are u nremarkable. A 4 mm left renal calculus is present. There is no hydronephrosis. Both nephrograms appe ar striated. There is no renal abscess. A small amount of abdominal and pelvic ascites is present. Th ere is no fluid collection to suggest an abscess. There is gas within the vagina. No evidence for a b owel obstruction. Wall thickening of the ascending colon and proximal to mid transverse colon is note d. This may be due to underdistention. Major vasculature within the abdomen and pelvis is grossly pat ent. No acute fracture or suspicious lesion is identified within the visualized skeletal structures. IMPRESSION: 1. Multiple small subcapsular wedge-shaped hypodense foci within the spleen suggestive of splenic inf arcts, possibly septic. Hepatosplenomegaly. 2. Numerous pulmonary emboli with multifocal cavitary nodules and cavitary consolidation. The finding s represent septic pulmonary emboli, better depicted on the chest CT which will be reported separatel y. 3. Bilateral striated nephrograms. Renal involvement with pyelonephritis cannot be excluded. No renal abscess. 4. Right colon wall thickening. This is probably due to underdistention however a nonspecific colitis could appear similar. No bowel obstruction. 5. Small amount of ascites. Periportal edema and gallbladder wall thickening which may be related to hydration. Mild gallbladder distention. Findings discussed with Dr. Baum at time of dictation. ACT 112: Negative or not required by law. Electronically signed by: Lazaro Askew M.D. 05/08/2022 9:16 PM
[2022-05-08] MEDS: VANCOMYCIN HCL 1,500 MG in SODIUM CHLORIDE 0.9% 500 ML IV SCH (21:20)
[2022-05-08] MEDS: PIPERACILLIN/TAZOBACTAM 4.5 GM in DEXTROSE 5% 100 ML IV SCH (21:27)
[2022-05-08 22:28] LABS: INR 1.3 (0.9-1.1); Partial Thromboplastin Ratio 1.6; Partial Thromboplastin Time 43.3 Seconds (21.0-31.0)
[2022-05-08] MEDS: HEPARIN SODIUM/DEXTROSE 25,000 UNITS/500 ML BAG IV SCH (22:30)
[2022-05-08] MEDS: NORMOSOL-R 1,000 ML IV SCH (22:31)
[2022-05-08] MEDS ORDERED: Ativan PO Alcohol Withdrawal--Active Protocol PO PRN (22:45)
[2022-05-08] MEDS ORDERED: LORazepam 1 MG TAB PO PRN (22:45)
[2022-05-08] MEDS: Heparin IV Adult Wt-Based Standard WITH Bolus Protocol IV SCH ×2 (22:49→22:50)
[2022-05-08] MEDS ORDERED: LORazepam 1 MG in SYRINGE 0 ML IV PRN (22:49)
[2022-05-08] MEDS ORDERED: Ativan IV Alcohol Withdrawal--Active Protocol IV PRN (22:49)
[2022-05-08] MEDS ORDERED: LORazepam 3 MG in SYRINGE 0 ML IV PRN (22:49)
[2022-05-08] MEDS: LORazepam 2 MG in SYRINGE 0 ML IV PRN (23:03)
[2022-05-09] MEDS: THIAMINE HCL 100 MG in SYRINGE 9 ML IV SCH ×2 (00:11→12:18)
[2022-05-09] MEDS: POTASSIUM CHLORIDE / WTR 10 MEQ/100 ML PLCT IV SCH ×7 (00:12→11:57)
[2022-05-09] MEDS: LORazepam 2 MG in SYRINGE 0 ML IV PRN (00:35)
[2022-05-09 01:15] LABS: BUN Creatinine Ratio 22.7 (10-20); Creatinine Clr Calc Pharmacy 139.6 ml/min; Est GFR (African American) 148.4 ml/min; Est GFR (Non-African American) 128.1 ml/min; Magnesium 1.9 mg/dl (1.7-2.4); Potassium 3.4 mmol/L (3.5-5.1)
[2022-05-09] MEDS ORDERED: MAGNESIUM SULFATE / D5W 1 GM/100 ML BAG IV ONE (01:23)
[2022-05-09] MEDS ORDERED: STAT IV Infusion **Titration per Protocol STA (01:45)
[2022-05-09] MEDS: dexMEDEtomidine 200 MCG/50 ML BAG IV SCH ×2 (02:36→06:07)
[2022-05-09 02:56] LABS: A calco-baum cmplx NotReported Not Detected (NotDetected); Bact fragilis Not Reported Not Detected (NotDetected); C auris Not Reported Not Detected (NotDetected); Calbicans Not Reported Not Detected (NotDetected); Candida glabrata Not Reported Not Detected (NotDetected); Candida krusei Not Reported Not Detected (NotDetected); Cneoformans/gatti Not Reported Not Detected (NotDetected); Cparapsilosis Not Reported Not Detected (NotDetected); Ctropicalis Not Reported Not Detected (NotDetected); E cloacae compx Not Reported Not Detected (NotDetected); Efaecalis Not Reported Not Detected (NotDetected); Efaecium Not Reported Not Detected (NotDetected); Enterobacterales Not Reported Not Detected (NotDetected); Escherichia coli Not Reported Not Detected (NotDetected); H influenzae Not Reported Not Detected (NotDetected); K aerogenes Not Reported Not Detected (NotDetected); Koxytoca Not Reported Not Detected (NotDetected); Kpneumoniae grp Not Reported Not Detected (NotDetected); Lmonocyt Not Reported Not Detected (NotDetected); N meningitidis Not Reported Not Detected (NotDetected); P aeruginosa Not Reported Not Detected (NotDetected); Proteus spp Not Reported Not Detected (NotDetected); Salmonella spp Not Reported Not Detected (NotDetected); Smarcescens Not Reported Not Detected (NotDetected); Staph lugdunensis Not Reported Not Detected (NotDetected); Staph spp. Not Reported DETECTED (NotDetected); Staphaureus Not Reported DETECTED (NotDetected); Staphepi Not Reported Not Detected (NotDetected); Staphylococcus spp. DETECTED (NotDetected); Stenmaltophilia Not Reported Not Detected (NotDetected); Strep agal(GrpB) Not Reported Not Detected (NotDetected); Strep pneum Not Reported Not Detected (NotDetected); Strep pyog (GrpA) Not Reported Not Detected (NotDetected); Strep spp Not Reported Not Detected (NotDetected); mecAC+MREJ Resistant Gene MRSA Not Detected (NotDetected)
[2022-05-09 05:34] LABS: Alanine Aminotransferase 14 U/L (7-52); Albumin Globulin Ratio 0.5 (0.9-2); Albumin Level 1.8 gm/dl (3.4-5.0); Alkaline Phosphatase 154 U/L (34-104); Anion Gap 8 (3-11); Aspartate Aminotransferase 19 U/L (13-39); BUN Creatinine Ratio 33.3 (10-20); Bilirubin,Total 1.4 mg/dl (0.2-1.0); Blood Urea Nitrogen 9 mg/dl (6-23); Carbon Dioxide 23 mmol/L (21-32); Chloride 101 mmol/L (98-107); Creatinine Clr Calc Pharmacy 227.6 ml/min; Est GFR (African American) > 150.0 ml/min; Est GFR (Non-African American) > 150.0 ml/min; Globulin 3.8 gm/dl (2.5-4.0); Glucose 143 mg/dl (70-99(Fasting)); Magnesium 2.2 mg/dl (1.7-2.4); Potassium 3.1 mmol/L (3.5-5.1); Sodium 132 mmol/L (136-145); Total Protein 5.6 gm/dl (6.0-8.3)
[2022-05-09 05:50] LABS: Hematocrit (blood only) 26.3 % (34.1-44.9); Mean Corpuscular Hemoglobin 27.8 pg (25.0-34.0); Mean Corpuscular Hgb Conc 34.2 g/dL (32.0-36.0); Mean Corpuscular Volume 81.2 fL (80.0-100.0); Mean Platelet Volume 9.5 fL (9.4-12.3); Platelet Count 121 K/uL (130-400); RDW Coefficient of Variation 13.9 % (11.5-14.5); RDW Standard Deviation 40.6 fL (36.4-46.3); Red Blood Count 3.24 M/uL (3.93-5.22); White Blood Count 10.21 K/ul (4.8-10.8)
[2022-05-09 05:52] LABS: Basophils # (auto) 0.04 K/uL (0-0.2); Basophils % (auto) 0.4 %; Echinocytes 2+; Immature Granulocytes # (auto) 0.05 K/uL (0.00-0.02); Immature Granulocytes % (auto) 0.5 %; Lymphocytes % (auto) 5.9 %; Monocytes # (auto) 0.38 K/uL (0.24-0.82); Monocytes % (auto) 3.7 %; Neutrophils # (auto) 9.14 K/uL (1.4-6.5); Neutrophils % (auto) 89.5 %; Polychromasia 1+; Toxic Vacuolation 1+
[2022-05-09] MEDS: NORMOSOL-R 1,000 ML IV SCH ×2 (05:56→07:22)
[2022-05-09] MEDS: PIPERACILLIN/TAZOBACTAM 4.5 GM in DEXTROSE 5% 100 ML IV SCH ×3 (05:56→22:36)
[2022-05-09 06:01] LABS: INR 1.3 (0.9-1.1); Prothrombin Time 13.8 Seconds (9.0-12.0)
[2022-05-09 06:03] LABS: Partial Thromboplastin Time 54.3 Seconds (21.0-31.0)
--- NOTE | 2022-05-09 06:08 | Electrocardiogram Report ---
Test Reason : Blood Pressure : / mmHG Vent. Rate : 136 BPM Atrial Rate : 136 BPM P-R Int : 122 ms QRS Dur : 086 ms QT Int : 312 ms P-R-T Axes : 063 021 060 degrees QTc Int : 469 ms Poor data quality, interpretation may be adversely affected Sinus tachycardia Otherwise normal ECG No previous ECGs available Confirmed by Azar Lovell ([id number]) on 05/09/2022 6:07:45 AM Referred By: Confirmed By:Azar Lovell
[2022-05-09] MEDS: FOLIC ACID 1 MG TAB PO SCH (07:41)
--- NOTE | 2022-05-09 08:12 | Critical Care Progress Note ---
Date of Service May 09, 2022 Assessment & Plan (1) Sepsis: Plan: Reason Critically Ill: 36-year-old female here with a PMHx significant for IV drug use, anxiety and depression, who presented with fatigue and lethargy and who was admitted for management of methamphetamine withdrawal, sepsis. Now found to have mitral and tricuspid valve vegetations. Now awaiting transfer to tertiary facility. Neuro - [facility] ICU: NEGATIVE Sedation: Ativan Analgesia: None -Withdrawal: AWSS, with clonidine for symptom management per protocol. Cardiac - -Tachycardia now resolved. Troponin downtrending, discontinued serial trops. -Bacterial endocarditis: Large vegetations at both mitral and tricuspid valves seen on echo with evidence of septic embolization of the spleen, lung, and possibly both kidneys. * Coordinating transfer to tertiary facility for heart surgery. * Antibiotic regimen: Zosyn, vancomycin. -Hypotension: unclear etiology. Persistent despite IV fluid/electrolyte repletion. Concern this could be 2/2 adrenal insufficiency/crisis. * Random cortisol ordered * Pressor support as needed Respiratory -Septic pulmonary emboli: Multifocal cavitary nodules, cavitary consolidation concerning for septic pulmonary emboli seen on CT ANGIO, CT A/P. * Empiric antimicrobial coverage: Zosyn, vancomycin as above. * Coordinating transfer to tertiary facility for further care. GI - RUQ pain: Hepatosplenomegaly, splenic emboli, pyelonephritis seen on CT A/P. * N.p.o. RENAL/LYTES - Hypomagnesemia, hypokalemia, hyponatremia * Trend BMP. Replace lytes as needed. Asymptomatic bacteriuria: UA positive for leukocyte esterase, protein. Patient, remains asymptomatic. * Awaiting urine culture results * Rodrigues catheter ENDO - * Random cortisol for r/o adrenal insufficiency, as above. HEME - Anemia: Improving s/p pRBC x2 units on admission. * Trend CBC. Transfuse at hgb<7. * Path consult peripheral smear for blast cells seen on CBC. ID - Staph A (not MSSA or MRSA) endocarditis/bacteremia: * Empiric coverage with Zosyn, vancomycin, again as above. Awaiting finalized blood culture findings * HIV, Hep C screens pending. INTEGUMENTARY - * LINES/IV ACCESS - PIVs intact. DVT PROPHYLAXIS - * Heparin gtt. Thank you for allowing us to be part of this patient's care. Please refer to Dr. Baum's documentation for any further recommendations. (2) Anemia: (3) Abdominal pain: (4) Pedal edema: (5) IV drug user: (6) Hypomagnesemia: (7) Elevated troponin: (8) Fever: (9) Pneumonia: Admission and Anticipated Discharge Date Admission Date: May 08, 2022 Supervising Physician Co-Signing Physician Notes Dr. Black was resident physician during care of patient. I separately evaluated patient for dunham portions of the history and the exam. I was present during the critical portion of medical decision making, and I discussed the case with the resident. I generally agree with the findings and plan. Patient with severe multisystem organ dysfunction, large bilateral septic pulmonary emboli, echo obtained this morning awaiting formal read however at bedside I am able to visualize a large vegetations on both tricuspid and mitral valve. Significant anemia requiring blood transfusion, blood cultures already positive for presumed MSSA however awaiting formal culture data before discontinuing vancomycin. Hepatitis panel and HIV ordered secondary to high risk activities. Probable splenic infarcts secondary to septic emboli. Probable pyelonephritis, suspect septic emboli causing repeated infection. Given that she was previously treated for infection at her last hospitalization of a urinary source believe she is continuing to shower septic emboli. Discitis not excluded at this point, has very high risk characteristics. I believe the patient should be evaluated by CT surgery given the right-sided and left-sided infective endocarditis with large vegetations and continued showering of septic emboli with multisystem organ involvement. Severe sepsis secondary to gram- positive bacteremia most likely infective endocarditis as source secondary to intravenous drug abuse. Lactate improving continue thiamine supplementation and nutritional support. Attempt to obtain prior records from [facility] with last hospitalization. Patient denies being evaluated for hepatitis C nor HIV, patient consents for testing. Confirmed cell phone, reports we can discuss care with patient's daughter and father. 0845: Discussed with Dr. Quiros of CT surgery [facility] willing to see as consult, awaiting discussion with cardiology and critical care at [facility]. 0920: D/W Valeriano: Cardiology: deferring to Medicine. Awaiting discussion with Dr. Garcia Medical triage officer 0930: D/W Radha: accepting in transfer to medicine service. Awaiting bed availability. Will attempt to medically manage some of her withdrawal symptoms Zofran every 6 hours 4 mg, clonidine 0.1 mg 2 times daily conservative use of benzodiazepines. Patient was discussed in multidisciplinary rounds. I have personally spent 65 minutes of critical care time in the direct management of this patient. This is a life/limb threatening event. This includes time spent evaluating patient, direct bedside care, chart review, placing orders, interpretation of diagnostic studies, discussion with consultants, patient, and/or family members regarding treatment decisions, as well as other required patient management activities. This time is exclusive of all separately billable procedures, and teaching time and separate from and in addition to any other critical care service time. Subjective Patient was disoriented and agitated overnight. Per nursing, she pulled her Rodrigues catheter with the balloon still inflated. She was also tachypneic with respiratory rate in the 30s and 40s overnight. Review of Systems Review of Systems: All systems reviewed & are unremarkable except as noted in HPI & below Physical Exam Physical Exam: General: Gaunt, ill-appearing woman, who is otherwise alert, oriented and in no acute distress. HEENT: Poor dentition, with profound enamel erosion. Dry mucous membranes. Neck: Normal ROM. CV: Regular rate and rhythm. No murmurs gallops or rubs. Respiratory: Normal respiratory effort. No crackles, rhonchi, or wheezes. Abdomen: Soft, nondistended abdomen. No bruits heard on auscultation. RUQ tenderness to mild/moderate palpation. No suprapubic tenderness. No guarding or rebound. Extremities: Capillary refill <2 sec. 2+ dp equal bilaterally. Bilateral pitting pedal edema, L >R. Skin: No rashes, bruises, or erythema. Results & Data Results & Data ([facility]) Vital Signs (Past 12 Hours) Vital Signs Temp Pulse Pulse Resp BP BP Pulse Ox 05/09/22 06:15 91/66 L 05/09/22 06:15 94 H 37 H 92 05/09/22 06:00 95 H 36 H 91 05/09/22 06:00 91/64 L 05/09/22 05:45 96 H 37 H 92 05/09/22 05:45 89/62 L 05/09/22 05:30 96 H 32 H 93 05/09/22 05:30 88/64 L 05/09/22 05:15 96 H 34 H 93 05/09/22 05:15 93/65 L 05/09/22 05:00 97 H 36 H 93 05/09/22 05:00 91/71 L 05/09/22 04:45 95/68 L 05/09/22 04:45 97 H 35 H 92 05/09/22 04:30 97 H 35 H 92 05/09/22 04:30 93/67 L 05/09/22 04:15 97 H 37 H 91 05/09/22 04:15 98/68 L 05/09/22 04:00 97 H 36 H 91 05/09/22 04:00 94/66 L 05/09/22 03:45 102/75 05/09/22 03:45 99 H 41 H 90 05/09/22 03:00 101 H 51 H 92 05/09/22 03:00 102/79 05/09/22 02:45 102 H 34 H 93 05/09/22 02:45 122/82 05/09/22 02:30 102 H 27 H 97 05/09/22 02:30 109/86 05/09/22 02:15 102 H 52 H 87 L 05/09/22 02:15 114/86 05/09/22 02:00 104 H 88 L 05/09/22 01:46 108/91 05/09/22 01:46 30.3 C L 105 H 36 H 79 L 05/09/22 01:32 35.7 C L 100 H 26 H 97 05/09/22 01:32 114/86 05/09/22 01:15 114/83 05/09/22 01:15 35.6 C L 102 H 32 H 96 05/09/22 01:01 35.6 C L 102 H 35 H 93 05/09/22 01:01 98/73 L 05/09/22 01:00 35.6 C L 100 H 41 H 05/09/22 00:46 35.6 C L 101 H 42 H 05/09/22 00:46 113/73 05/09/22 00:31 35.7 C L 101 H 39 H 05/09/22 00:31 103/79 05/09/22 00:17 35.6 C L 104 H 30 H 100 05/09/22 00:17 123/103 H 05/09/22 00:00 35.6 C L 101 H 20 100 05/08/22 23:46 122/87 05/08/22 23:46 35.6 C L 103 H 32 H 99 05/08/22 23:30 35.7 C L 102 H 26 H 98 05/08/22 23:30 108/85 05/08/22 23:16 110/81 05/08/22 23:16 35.7 C L 101 H 27 H 74 L 05/08/22 23:09 35.7 C L 100 H 44 H 100 05/08/22 23:09 112/80 05/08/22 23:07 35.7 C L 100 H 39 H 99 05/08/22 23:07 108/80 05/08/22 23:00 35.7 C L 100 H 37 H 99 05/08/22 23:29 35.6 C L 102 H 35 H 103/79 96 05/09/22 00:00 112 H 05/08/22 22:59 35.7 C L 113 H 34 H 112/80 98 05/08/22 22:44 35.7 C L 100 H 24 108/80 100 05/08/22 22:01 103 H 42 H 99 05/08/22 22:01 101/69 05/08/22 22:00 104 H 30 H 98 05/08/22 21:00 107 H 14 97 05/08/22 21:00 97/60 L 05/08/22 20:40 100/66 05/08/22 20:40 110 H 36 H 95 05/08/22 20:35 109 H 05/08/22 22:19 35.2 C L 102 H 27 H 101/69 100 05/08/22 21:49 05/08/22 21:35 35.8 C L 102 H 25 H 97/60 L 99 05/08/22 21:15 95 O2 Del Method O2 Flow Rate 05/09/22 06:15 05/09/22 06:15 05/09/22 06:00 05/09/22 06:00 05/09/22 05:45 05/09/22 05:45 05/09/22 05:30 05/09/22 05:30 05/09/22 05:15 05/09/22 05:15 05/09/22 05:00 05/09/22 05:00 05/09/22 04:45 05/09/22 04:45 05/09/22 04:30 05/09/22 04:30 05/09/22 04:15 05/09/22 04:15 05/09/22 04:00 05/09/22 04:00 05/09/22 03:45 05/09/22 03:45 05/09/22 03:00 05/09/22 03:00 05/09/22 02:45 05/09/22 02:45 05/09/22 02:30 05/09/22 02:30 05/09/22 02:15 05/09/22 02:15 05/09/22 02:00 05/09/22 01:46 05/09/22 01:46 05/09/22 01:32 05/09/22 01:32 05/09/22 01:15 05/09/22 01:15 05/09/22 01:01 05/09/22 01:01 05/09/22 01:00 05/09/22 00:46 05/09/22 00:46 05/09/22 00:31 05/09/22 00:31 05/09/22 00:17 05/09/22 00:17 05/09/22 00:00 05/08/22 23:46 05/08/22 23:46 05/08/22 23:30 05/08/22 23:30 05/08/22 23:16 05/08/22 23:16 05/08/22 23:09 05/08/22 23:09 05/08/22 23:07 05/08/22 23:07 05/08/22 23:00 05/08/22 23:29 05/09/22 00:00 05/08/22 22:59 05/08/22 22:44 05/08/22 22:01 05/08/22 22:01 05/08/22 22:00 05/08/22 21:00 05/08/22 21:00 05/08/22 20:40 05/08/22 20:40 05/08/22 20:35 05/08/22 22:19 05/08/22 21:49 Room Air 05/08/22 21:35 Room Air 05/08/22 21:15 Nasal Cannula 4 Resident Activity Tracking Resident Involvement: Resident Care Provided Care Provided: Adult Hospital Medicine
--- NOTE | 2022-05-09 09:56 | Billing Data ---
Date of Service May 09, 2022 Coding Level of Care Code Critical Care 1st - mins
[2022-05-09 11:04] LABS: Troponin I High Sensitivity 69.4 pg/ml (0-14)
--- NOTE | 2022-05-09 11:05 | Hospitalist Progress Note ---
Date of Service May 09, 2022 Assessment & Plan (1) Severe sepsis: Plan: Secondary to multilobar pneumonia With multisystem organ dysfunction Gram-positive bacteremia with septic pulmonary emboli, infective endocarditis and a splenic infarct Has been on intravenous vancomycin and Zosyn Blood culture is developing gram-positive cocci in clusters and urine culture is pending Continue IVF resuscitation, trend lactate-lactate has been improving Will need ID evaluation (2) Pneumonia: Plan: CXR shows multifocal pneumonia and CT confirms it Patient hypoxic on room air at 88%, currently requiring 4 L via nasal cannula. S/p Vanco and Zosyn (3) Bilateral pulmonary embolism: Plan: CTA did not show multiple bilateral pulmonary emboli No saddle embolism Has been on intravenous heparin (4) Infective endocarditis: Plan: Echo of the heart showed-normal LV size, normal LV wall thickness, mild global hypokinesis of the left ventricle with EF of 45 to 50%, aortic valve is trileaflet, there is a small vegetations or mass on the aortic valve, large vegetation or mass on the mitral valve adherent to the base of the posterior annulus measuring 1.6 cm, there is a very large vegetation or mass on the tricuspid valve measuring 1.9 cm with severe tricuspid regurgitation Has multiple vertebral visitations The case was discussed with the CT surgery in [place] and the patient was accepted for transfer Awaiting bed (5) Acute respiratory failure with hypoxia: Plan: Patient hypoxic on room air at 88%, currently requiring 4 L via nasal cannula. Secondary to multilobar pneumonia , pulmonary embolism with bilateral septic pulmonary emboli Saturating normally on room air (6) Anemia: Plan: Hgb 6.4. Platelets stable at 175K. Stool heme-negative in ED Single blast cells noted on differential. ED discussed with hematology --this is likely felt to be due to sepsis. Will trend it differential continue to monitor. Given history of IV drug abuse, concern for possible hemolytic anemia secondary to endocarditis Transfuse 1 unit PRBC Hemoglobin is 9.0 following transfusion Doubt any leukemia (7) IV drug user: Plan: Patient reports using fentanyl --last IV usage was about 1 month ago, patient reports she currently smokes fentanyl " all day long". Last use being just prior to arrival. Has been going through withdrawal symptoms with agitation and unstable eating Has been started on intravenous Precedex Appreciate coremaker helper input We will get hepatitis serology and HIV testing (8) Elevated troponin: Plan: HS trop 69.4 Likely demand ischemia in the setting of sepsis Continue to trend troponin-doubt any ACS (9) Electrolyte abnormality: Plan: Na+ 129, K+ 3.3, Mg +1.4 Replace, follow BMP (10) Lower extremity edema: Plan: Etiology unclear at this time Consider BL LE Doppler Echo Also noted to have hypoalbuminemia (11) DVT prophylaxis: Plan: IV heparin Admission and Anticipated Discharge Date Admission Date: May 08, 2022 Subjective 05/09/2022 The patient was seen and examined in ICU She remains sedated on intravenous Precedex Remains hemodynamically stable with blood pressure on the lower side at 91/66 Does not have any acute distress Awaiting to be transferred to [facility] Review of Systems Review of Systems: Unobtainable due to cognitive status Physical Exam Physical Exam: Lying in bed without any acute distress Constitutional: + ill appearing and average body habitus Eyes: Closed ENMT: external ear and nose normal, oropharynx normal Neck: trachea midline, no thyromegaly Respiratory: no respiratory distress Auscultation: + diminished lung sounds and + crackles (Bilateral crackles) Cardiovascular: Rate/Rhythm: regular rate and regular rhythm Heart Sounds: normal S1, normal S2 and + murmur (2/6 ESM over precordium) Extremities: no edema Gastrointestinal (Abdomen): Inspection/Auscultation: + abdomen distended (Mildly distended) and normal bowel sounds Percussion/Palpation: abdomen soft; abdomen nontender Musculoskeletal: No acute arthritis in any joint Neurologic: Sedated with intravenous Precedex. Moving all extremities Lymphatic: no cervical or axillary lymphadenopathy Results & Data Results & Data ([facility]) Vital Signs (Past 12 Hours) Vital Signs Temp Pulse Resp BP Pulse Ox 05/09/22 09:00 35.8 C L 05/09/22 08:00 35.5 C L 05/09/22 06:15 91/66 L 05/09/22 06:15 94 H 37 H 92 05/09/22 06:00 95 H 36 H 91 05/09/22 06:00 91/64 L 05/09/22 05:45 96 H 37 H 92 05/09/22 05:45 89/62 L 05/09/22 05:30 96 H 32 H 93 05/09/22 05:30 88/64 L 05/09/22 05:15 96 H 34 H 93 05/09/22 05:15 93/65 L 05/09/22 05:00 97 H 36 H 93 05/09/22 05:00 91/71 L 05/09/22 04:45 95/68 L 05/09/22 04:45 97 H 35 H 92 05/09/22 04:30 97 H 35 H 92 05/09/22 04:30 93/67 L 05/09/22 04:15 97 H 37 H 91 05/09/22 04:15 98/68 L 05/09/22 04:00 97 H 36 H 91 05/09/22 04:00 94/66 L 05/09/22 03:45 102/75 05/09/22 03:45 99 H 41 H 90 05/09/22 03:00 101 H 51 H 92 05/09/22 03:00 102/79 05/09/22 02:45 102 H 34 H 93 05/09/22 02:45 122/82 05/09/22 02:30 102 H 27 H 97 05/09/22 02:30 109/86 05/09/22 02:15 102 H 52 H 87 L 05/09/22 02:15 114/86 05/09/22 02:00 104 H 88 L 05/09/22 01:46 108/91 05/09/22 01:46 30.3 C L 105 H 36 H 79 L 05/09/22 01:32 35.7 C L 100 H 26 H 97 05/09/22 01:32 114/86 05/09/22 01:15 114/83 05/09/22 01:15 35.6 C L 102 H 32 H 96 05/09/22 01:01 35.6 C L 102 H 35 H 93 05/09/22 01:01 98/73 L 05/09/22 01:00 35.6 C L 100 H 41 H 05/09/22 00:46 35.6 C L 101 H 42 H 05/09/22 00:46 113/73 05/09/22 00:31 35.7 C L 101 H 39 H 05/09/22 00:31 103/79 05/09/22 00:17 35.6 C L 104 H 30 H 100 05/09/22 00:17 123/103 H 05/09/22 00:00 35.6 C L 101 H 20 100 05/08/22 23:46 122/87 05/08/22 23:46 35.6 C L 103 H 32 H 99 05/08/22 23:30 35.7 C L 102 H 26 H 98 05/08/22 23:30 108/85 05/08/22 23:16 110/81 05/08/22 23:16 35.7 C L 101 H 27 H 74 L 05/08/22 23:09 35.7 C L 100 H 44 H 100 05/08/22 23:09 112/80 05/08/22 23:07 35.7 C L 100 H 39 H 99 05/08/22 23:07 108/80 05/08/22 23:00 35.7 C L 100 H 37 H 99 05/08/22 23:29 35.6 C L 102 H 35 H 103/79 96 05/09/22 00:00 112 H 05/08/22 22:59 35.7 C L 113 H 34 H 112/80 98 05/08/22 22:44 35.7 C L 100 H 24 108/80 100 Laboratory Results Short CBC 05/08/22 05/09/22 Range/Units 15:30 04:14 WBC 7.02 10.21 (4.8-10.8) K/ul Hgb 6.4 L* 9.0 L (12.0-16.0) g/dl Hct 19.1 L* 26.3 L (34.1-44.9) % Plt Count 175 121 L (130-400) K/uL BMP 05/08/22 05/09/22 05/09/22 15:30 00:38 04:14 Sodium 129 L 131 L 132 L Potassium 3.3 L 3.4 L 3.1 L Chloride 95 L 99 101 Carbon Dioxide 24 23 BUN 10 10 9 Creatinine 0.43 L 0.44 L 0.27 L Glucose 160 H 166 H 143 H Calcium 7.8 L 7.0 L 7.0 L Cardiac Enzymes 05/08/22 Range/Units 16:49 Total Creatine Kinase 49 (26-192) U/L Liver Function 05/08/22 05/09/22 Range/Units 15:30 04:14 Total Bilirubin 1.0 1.4 H (0.2-1.0) mg/dl Direct Bilirubin 0.3 H (0-0.2) mg/dl AST 16 19 (13-39) U/L ALT 14 14 (7-52) U/L Alkaline Phosphatase 132 H 154 H (34-104) U/L Albumin 2.3 L 1.8 L (3.4-5.0) gm/dl Urine 05/08/22 Range/Units 16:22 Urine Color Dark Yellow Urine Appearance Clear (Clear) Urine pH 6.0 (4.5-7.5) Ur Specific [place] 1.013 (1.000-1.030) Urine Protein 1+ H (Negative) Urine Glucose (UA) Negative (Negative) Medications Administered Current Inpatient Medications Clonidine HCl (Clonidine Hcl 0.1 Mg Tab) 0.1 mg PO BID [facility] Stop: 06/08/22 20:59 Folic Acid (Folic Acid 1 Mg Tab) 1 mg PO QAM [facility] Stop: 06/08/22 08:59 Last Admin: 05/09/22 07:41 Dose: 1 mg Heparin Sodium/Dextrose (Heparin Sodium/Dextrose) 25,000 units in 500 mls @ 19 mls/hr IV .Q24H [facility]; Protocol Stop: 06/07/22 21:14 Last Admin: 05/08/22 22:30 Dose: 950 units/hr, 19 mls/hr Piperacillin Sod/Tazobactam (Sod 4.5 gm/ Dextrose) 120 mls @ 30 mls/hr IV Q8H [facility]; Protocol Stop: 05/15/22 21:59 Last Admin: 05/09/22 05:56 Dose: 30 mls/hr Parenteral Electrolytes (Normosol-R) 1,000 mls @ 125 mls/hr IV .Q8H [facility] Stop: 06/07/22 20:59 Last Admin: 05/09/22 07:22 Dose: 125 mls/hr Vancomycin HCl 1,500 mg/ (Sodium Chloride) 530 mls @ 200 mls/hr IV Q12H [facility] Stop: 05/10/22 21:59 Last Infusion: 05/09/22 00:12 Dose: Infused Thiamine HCl 100 mg/ Syringe 10 mls @ 2 mls/min IV QAM [facility] Stop: 06/07/22 08:59 Last Admin: 05/09/22 00:11 Dose: Not Given Lorazepam (Lorazepam 1 Mg Tab) 1 mg PO UD PRN; Protocol PRN Reason: EtOH Withdrawal AWSS Score 6,7 Stop: 06/07/22 22:44 Lorazepam (Lorazepam 1 Mg Tab) 2 mg PO UD PRN; Protocol PRN Reason: EtOH Withdrawal AWSS Score 8,9 Stop: 06/07/22 22:44 Miscellaneous (Icu Protocol For Hyperglycemia) 1 each N/A PRN PRN; Protocol PRN Reason: Hyperglycemia Protocol Stop: 05/10/22 20:53 Miscellaneous Information (Vancomycin Consult Active) 1 each N/A UD PRN PRN Reason: Consult Stop: 06/07/22 16:08
--- NOTE | 2022-05-09 11:31 | Pharmacy Report ---
Pharmacy Vanc AUC Short Note - Date of Service May 09, 2022 - Assessment & Plan Assessment * 36 year old F receiving VANCOMYCIN + ZOSYN for treatment of endocarditis of MV, TV and AV in the setting of IVDA. Concern for splenic and pulmonary septic emboli per imaging. * Pertinent microbiologic data includes: 2/ BLCXs show GPC in clusters in all bottles, BLCX [employer] revealed MSSA, nasal MRSA swab was negative * Patient was discussed on rounds this AM, Apprentice Photographer wishes to continue c urrent abx therapy rather than targeting MSSA per [employer]. Plans to await final C&S report. No plans to consult ID due to accepted transfer to tertiary care facility. Nafcillin or potentially Cefazolin would be regimens of choice for MSSA endocarditis (cefazolin not recommended in setting of septic emboli to brain w/ abscess formation) Plan Vancomycin * AUC/MAGDALENO is the preferred PK/PD target for vancomycin * AUC guided dosing is effective and associated with decreased risk of nephrotoxicity compared to traditional trough targets * Maint dose of 1500mg IV Q 12 hrs is predicted to achieve target AUC/MAGDALENO of 400-600 mg/L.hr and may be associated with a 10 % risk of nephrotoxicity * Trough level will be checked with 3rd or 4th dose if transfer delayed (level has not yet been ordered) Pharmacy will continue to follow and will adjust dose/frequency as necessary. Thank you.
[2022-05-09] MEDS: VANCOMYCIN HCL 1,500 MG in SODIUM CHLORIDE 0.9% 500 ML IV SCH ×2 (12:17→22:36)
[2022-05-09] MEDS: LORazepam 1 MG TAB PO PRN ×5 (14:10→23:07)
[2022-05-09 14:29] LABS: Anion Gap 7 (3-11); BUN Creatinine Ratio 31.3 (10-20); Blood Urea Nitrogen 10 mg/dl (6-23); Calcium 6.7 mg/dl (8.5-10.1); Carbon Dioxide 22 mmol/L (21-32); Chloride 102 mmol/L (98-107); Est GFR (African American) > 150.0 ml/min; Est GFR (Non-African American) 142.2 ml/min; Glucose 123 mg/dl (70-99(Fasting)); Potassium 3.6 mmol/L (3.5-5.1); Sodium 131 mmol/L (136-145)
[2022-05-09] MEDS: cloNIDine HCL 0.1 MG TAB PO SCH ×2 (15:52→22:37)
[2022-05-09] MEDS ORDERED: SODIUM CHLORIDE 0.65% NA SOLN 45 ML (OCEAN) ONE (17:08)
[2022-05-09] MEDS: NICOTINE 14 MG/24 HR PATCH TD SCH (18:04)
[2022-05-09] MEDS ORDERED: NURSING DECISION MEDICATION ONE (18:05)
[2022-05-09] MEDS ORDERED: SODIUM CHLORIDE 0.65% NA SOLN 45 ML (OCEAN) PRN (18:17)
--- NOTE | 2022-05-09 18:17 | Discharge Summary ---
Date of Service May 09, 2022 Admission HPI Per Admitting Provider 36-year-old female with PMH depression, anxiety, drug abuse (fentanyl via IV and smoking), and other problems listed below who presents to the ED for evaluation of generalized weakness and body aches. Patient reports that she has been feeling sick for about the past 1 month. Patient was seen at [place] [facility] and diagnosed with pneumonia and UTI. Patient was discharged on prednisone and levofloxacin. Patient reports completing both courses of the medications. Patient reports no improvement in her symptoms. She reports feeling extremely weak. She also notes body aches and feeling feverish however did not check her temperature. She reports a productive cough. She states that she has bilateral lower rib pain with taking a deep breath. Patient is noted to have bilateral lower extremity edema on exam. She states this has been present for about the past 1 week. No chest pain or palpitations. Denies lightheadedness, dizziness, diaphoresis, syncopal events. No abdominal pain, nausea, vomiting, diarrhea. Denies urinary symptoms. Patient states she last used IV fentanyl about 1 month ago however smokes fentanyl " all day long", last using this morning prior to calling EMS. In the ED, patient was found febrile at 39.6, tachycardic, elevated lactate. Labs also show anemia with Hgb 6.4. Differential shows a single blast cell. There are several electrolyte abnormalities noted with Na+ 129, K+ 3.3, Mg +1.3, CA +7.8. HS troponin 69.4. Admission Exam Per Admitting Provider Constitutional: WD/WN, vitals as above + ill appearing and + disheveled; no acute distress Eyes: PERRL, conjunctivae normal, anicteric sclerae ENMT: external ear and nose normal, oropharynx normal Mouth: + poor dentition Respiratory: normal respiratory effort; no respiratory distress Auscultation: + rhonchi (Bilateral bases) Cardiovascular: Rate/Rhythm: regular rhythm and + tachycardic Vessels: normal peripheral pulses Extremities: + edema (+2-3 edema BLE) Gastrointestinal (Abdomen): normal bowel sounds, soft, nontender, no hepatosplenomegaly Musculoskeletal: no cyanosis or clubbing, extremities motor strength 5/5 Skin: no rashes, warm and dry Neurologic: PERRL, EOMI, accommodation nl, no face palsy, no dysarthria Psychiatric: Orientation: alert and oriented x 3 Affect: + anxious affect and + tearful affect Principal Diagnosis Infective endocarditis, septic pulmonary emboli, pneumonia Discharge Exam Lying in bed without any acute distress Constitutional + ill appearing and average body habitus ENMT external ear and nose normal, oropharynx normal Neck trachea midline, no thyromegaly Respiratory no respiratory distress Auscultation: + diminished lung sounds and + crackles (Bilateral crackles) Cardiovascular Rate/Rhythm: regular rate and regular rhythm Heart Sounds: normal S1, normal S2 and + murmur (2/6 ESM over precordium) Extremities: no edema Gastrointestinal (Abdomen) Inspection/Auscultation: + abdomen distended (Mildly distended) and normal bowel sounds Percussion/Palpation: abdomen soft; abdomen nontender Lymphatic no cervical or axillary lymphadenopathy Discharge Data Allergies Allergy/AdvReac Type Severity Reaction Status Date / Time No Known Allergies Allergy Unknown Verified 05/08/22 16:58 Consultations 05/08/22 17:05 ED Decision to Admit Stat 05/08/22 20:54 Consult [employer] W[employer] Routine Ordered Studies 05/08/22 17:16 CT angio chest PE protocol Stat 05/08/22 17:19 CT Abd and Pelvis [CT abd pelvis IV con only] Stat Hospital Course (1) Pneumonia: CXR shows multifocal pneumonia and CT confirms it Patient hypoxic on room air at 88%, currently requiring 4 L via nasal cannula. S/p Vanco and Zosyn (2) Bilateral pulmonary embolism: CTA did not show multiple bilateral pulmonary emboli No saddle embolism Has been on intravenous heparin (3) Infective endocarditis: Echo of the heart showed-normal LV size, normal LV wall thickness, mild global hypokinesis of the left ventricle with EF of 45 to 50%, aortic valve is trileaflet, there is a small vegetations or mass on the aortic valve, large vegetation or mass on the mitral valve adherent to the base of the posterior annulus measuring 1.6 cm, there is a very large vegetation or mass on the tricuspid valve measuring 1.9 cm with severe tricuspid regurgitation Has multiple vertebral visitations The case was discussed with the CT surgery in [facility] and the patient was accepted for transfer Awaiting bed (4) Acute respiratory failure with hypoxia: Patient hypoxic on room air at 88%, currently requiring 4 L via nasal cannula. Secondary to multilobar pneumonia , pulmonary embolism with bilateral septic pulmonary emboli Saturating normally on room air (5) Anemia: Hgb 6.4. Platelets stable at 175K. Stool heme-negative in ED Single blast cells noted on differential. ED discussed with hematology --this is likely felt to be due to sepsis. Will trend it differential continue to monitor. Given history of IV drug abuse, concern for possible hemolytic anemia secondary to endocarditis Transfuse 1 unit PRBC Hemoglobin is 9.0 following transfusion Doubt any leukemia (6) IV drug user: Patient reports using fentanyl --last IV usage was about 1 month ago, patient reports she currently smokes fentanyl " all day long". Last use being just prior to arrival. Has been going through withdrawal symptoms with agitation and unstable eating Has been started on intravenous Precedex Appreciate security incident response specialist input We will get hepatitis serology and HIV testing (7) Elevated troponin: HS trop 69.4 Likely demand ischemia in the setting of sepsis Continue to trend troponin-doubt any ACS (8) Electrolyte abnormality: Na+ 129, K+ 3.3, Mg +1.4 Replace, follow BMP (9) Lower extremity edema: Etiology unclear at this time Consider BL LE Doppler Echo Also noted to have hypoalbuminemia (10) DVT prophylaxis: IV heparin Total Time Total Time Spent Total Time Spent (In Minutes): 45 minutes Discharge Plan Discharge Items Patient Disposition: Transfer Acute Care Hospital Reason For Visit: SEPSIS, PNEUMONIA Discharge Diagnosis: Infective endocarditis, septic pulmonary emboli, pneumonia Condition on Discharge: Fair Activity: Resume your previous activity Non-emergency contact: Primary Care Provider Call non-emergency contact if: you have any medication questions and your symptoms worsen Follow-up/Referrals: Lenny Cleary MD [Primary Care Provider] - Diet: Regular Addtl Attending Provider Instructions: She was transferred to [facility] for continued management All of her inpatient medications were continued on transfer as below: Current Inpatient Medications Clonidine HCl (Clonidine Hcl 0.1 Mg Tab) 0.1 mg PO BID NICOLE Stop: 06/08/22 20:59 Folic Acid (Folic Acid 1 Mg Tab) 1 mg PO QAM NICOLE Stop: 06/08/22 08:59 Last Admin: 05/09/22 07:41 Dose: 1 mg Heparin Sodium/Dextrose (Heparin Sodium/Dextrose) 25,000 units in 500 mls @ 19 mls/hr IV .Q24H NICOLE; Protocol Stop: 06/07/22 21:14 Last Admin: 05/08/22 22:30 Dose: 950 units/hr, 19 mls/hr Piperacillin Sod/Tazobactam (Sod 4.5 gm/ Dextrose) 120 mls @ 30 mls/hr IV Q8H NICOLE; Protocol Stop: 05/15/22 21:59 Last Admin: 05/09/22 05:56 Dose: 30 mls/hr Parenteral Electrolytes (Normosol-R) 1,000 mls @ 125 mls/hr IV .Q8H NICOLE Stop: 06/07/22 20:59 Last Admin: 05/09/22 07:22 Dose: 125 mls/hr Vancomycin HCl 1,500 mg/ (Sodium Chloride) 530 mls @ 200 mls/hr IV Q12H NICOLE Stop: 05/10/22 21:59 Last Infusion: 05/09/22 00:12 Dose: Infused Thiamine HCl 100 mg/ Syringe 10 mls @ 2 mls/min IV QAM [facility] Stop: 06/07/22 08:59 Last Admin: 05/09/22 00:11 Dose: Not Given Lorazepam (Lorazepam 1 Mg Tab) 1 mg PO UD PRN; Protocol PRN Reason: EtOH Withdrawal AWSS Score 6,7 Stop: 06/07/22 22:44 Lorazepam (Lorazepam 1 Mg Tab) 2 mg PO UD PRN; Protocol PRN Reason: EtOH Withdrawal AWSS Score 8,9 Stop: 06/07/22 22:44 Miscellaneous (Icu Protocol For Hyperglycemia) 1 each N/A PRN PRN; Protocol PRN Reason: Hyperglycemia Protocol Stop: 05/10/22 20:53 Miscellaneous Information (Vancomycin Consult Active) 1 each N/A UD PRN PRN Reason: Consult Stop: 06/07/22 16:08 Pending Studies at Discharge: No Stand-Alone Forms: My [facility] Skilled Items Patient informed of condition?: Yes DNR: No Discharge Level of Care: Other Communicable Disease: No Discharge Prognosis: Stable Lines: Peripheral IV Urinary Catheter: Yes Medications and DC Order Prescriptions: No Action No Known Home Medications Discharge Orders: Discharge Order (Routine); Ordered 05/09/22 Ordered By: Luis Daniel Childs Admission Data Admit Date/Time: 05/08/22 17:39 Attending Provider: Luis Daniel Childs Admit Provider: Amy Osuna Primary Care Provider: Lenny Cleary Other Providers: Amy Osuna ; Ronald Baum Supervising Physician Co-Signing Physician Notes Dr. Black was resident physician during care of patient. I separately evaluated patient for dunham portions of the history and the exam. I was present during the critical portion of medical decision making, and I discussed the case with the resident. I generally agree with the findings and plan. Patient with severe multisystem organ dysfunction, large bilateral septic pulmonary emboli, echo obtained this morning awaiting formal read however at bedside I am able to visualize a large vegetations on both tricuspid and mitral valve. Significant anemia requiring blood transfusion, blood cultures already positive for presumed MSSA however awaiting formal culture data before discontinuing vancomycin. Hepatitis panel and HIV ordered secondary to high risk activities. Probable splenic infarcts secondary to septic emboli. Probable pyelonephritis, suspect septic emboli causing repeated infection. Given that she was previously treated for infection at her last hospitalization of a urinary source believe she is continuing to shower septic emboli. Discitis not excluded at this point, has very high risk characteristics. I believe the patient should be evaluated by CT surgery given the right-sided and left-sided infective endocarditis with large vegetations and continued showering of septic emboli with multisystem organ involvement. Severe sepsis secondary to gram- positive bacteremia most likely infective endocarditis as source secondary to intravenous drug abuse. Lactate improving continue thiamine supplementation and nutritional support. Attempt to obtain prior records from [facility] with last hospitalization. Patient denies being evaluated for hepatitis C nor HIV, patient consents for testing. Confirmed cell phone, reports we can discuss care with patient's daughter and father. 0845: Discussed with Dr. Quiros of CT surgery [facility] willing to see as consult, awaiting discussion with cardiology and critical care at [facility]. 0920: D/W Valeriano: Cardiology: deferring to Medicine. Awaiting discussion with Dr. Garcia Medical triage officer 0930: D/W Radha: accepting in transfer to medicine service. Awaiting bed availability. Will attempt to medically manage some of her withdrawal symptoms Zofran every 6 hours 4 mg, clonidine 0.1 mg 2 times daily conservative use of benzodiazepines. Patient was discussed in multidisciplinary rounds. I have personally spent 65 minutes of critical care time in the direct management of this patient. This is a life/limb threatening event. This includes time spent evaluating patient, direct bedside care, chart review, placing orders, interpretation of diagnostic studies, discussion with consultants, patient, and/or family members regarding treatment decisions, as well as other required patient management activities. This time is exclusive of all separately billable procedures, and teaching time and separate from and in addition to any other critical care service time.
[2022-05-09] MEDS: ALBUT/IPRATROP 3MG/0.5MG NEB 3 ML VIAL NEB SCH ×2 (18:23→22:11)
[2022-05-09] MEDS ORDERED: cloNIDine HCL 0.1 MG TAB PO SCH (21:00)
[2022-05-09] MEDS ORDERED: COUGH DROP (SUGAR FREE) LOZ 24 LOZ/1 BOX BUCCAL PRN (21:36)
[2022-05-09] MEDS: HEPARIN SODIUM/DEXTROSE 25,000 UNITS/500 ML BAG IV SCH (22:37)
[2022-05-10] MEDS: ALBUT/IPRATROP 3MG/0.5MG NEB 3 ML VIAL NEB SCH ×2 (02:48→07:11)
[2022-05-10 03:59] LABS: Basophils # (auto) 0.02 K/uL (0-0.2); Basophils % (auto) 0.2 %; Eosinophils # (auto) 0.03 K/uL (0-0.50); Eosinophils % (auto) 0.3 %; Hematocrit (blood only) 29.5 % (34.1-44.9); Lymphocytes # (auto) 1.05 K/uL (1.2-3.4); Lymphocytes % (auto) 10.4 %; Mean Corpuscular Hemoglobin 27.7 pg (25.0-34.0); Mean Corpuscular Hgb Conc 33.9 g/dL (32.0-36.0); Mean Corpuscular Volume 81.7 fL (80.0-100.0); Mean Platelet Volume 9.8 fL (9.4-12.3); Monocytes # (auto) 0.33 K/uL (0.24-0.82); Monocytes % (auto) 3.3 %; Neutrophils % (auto) 84.8 %; Platelet Count 140 K/uL (130-400); RDW Coefficient of Variation 14.5 % (11.5-14.5); RDW Standard Deviation 42.2 fL (36.4-46.3); Red Blood Count 3.61 M/uL (3.93-5.22); White Blood Count 10.13 K/ul (4.8-10.8)
[2022-05-10 04:10] LABS: INR 1.1 (0.9-1.1); Prothrombin Time 11.7 Seconds (9.0-12.0)
[2022-05-10 04:11] LABS: Partial Thromboplastin Ratio 1.5; Partial Thromboplastin Time 40.3 Seconds (21.0-31.0)
[2022-05-10 04:28] LABS: Albumin Globulin Ratio 0.6 (0.9-2); Albumin Level 2.1 gm/dl (3.4-5.0); Bilirubin,Total 0.6 mg/dl (0.2-1.0); Calcium 7.3 mg/dl (8.5-10.1); Creatinine Clr Calc Pharmacy 122.9 ml/min; Est GFR (African American) 142.3 ml/min; Est GFR (Non-African American) 122.8 ml/min; Globulin 3.8 gm/dl (2.5-4.0); Magnesium 2.1 mg/dl (1.7-2.4); Potassium 2.9 mmol/L (3.5-5.1); Total Protein 5.9 gm/dl (6.0-8.3)
[2022-05-10] MEDS ORDERED: POTASSIUM CHLORIDE 20 MEQ/15 ML UDC PO STA (04:35)
[2022-05-10] MEDS: POTASSIUM CHLORIDE / WTR 10 MEQ/100 ML PLCT IV SCH ×4 (04:42→08:12)
[2022-05-10] MEDS: PIPERACILLIN/TAZOBACTAM 4.5 GM in DEXTROSE 5% 100 ML IV SCH (05:25)
[2022-05-10] MEDS: LORazepam 1 MG TAB PO PRN ×4 (05:26→20:40)
--- NOTE | 2022-05-10 07:47 | Critical Care Progress Note ---
Date of Service May 10, 2022 Assessment & Plan (1) Sepsis: Plan: Reason Critically Ill: 36-year-old female here with a PMHx significant for IV drug use, anxiety and depression, who presented with fatigue and lethargy and who was admitted for management of methamphetamine withdrawal, sepsis. Now found to have mitral and tricuspid valve vegetations. Now awaiting transfer to tertiary facility. Neuro - [facility] ICU: Positive Sedation: Ativan, clonidine Analgesia: None -Withdrawal: AWSS, with clonidine and Ativan for symptom management per protocol. Cardiac - -Tachycardia: Sinus rhythm. Likely secondary to withdrawal. Continue AWSS as above. -Bacterial endocarditis: Large vegetations at both mitral and tricuspid valves seen on echo with evidence of septic embolization of the spleen, lung, and possibly both kidneys. * Coordinating transfer to tertiary facility for heart surgery. * Continue antibiotic regimen: Zosyn, vancomycin. -Hypotension: resolved Respiratory -Septic pulmonary emboli: Multifocal cavitary nodules, cavitary consolidation concerning for septic pulmonary emboli seen on CT ANGIO, CT A/P. * Empiric antimicrobial coverage: de-escalate to nafcillin * Coordinating transfer to tertiary facility for further care. GI -RUQ pain: Hepatosplenomegaly, splenic emboli, pyelonephritis seen on CT A/P. No TTP x4 quadrants on exam this morning. Consider resolved. * Regular diet RENAL/LYTES -Hypokalemia, hyponatremia: Now s/p p.o. KCl 40 mEq, IV KCl 10 mEq x 4 bags. * Recheck BMP at 11 AM * Trend electrolytes daily No growth (<1000 colonies per mL) on urine culture. * Jaramillo catheter in place * Discontinue jaramillo catheter ENDO Random cortisol within normal limits, suggesting she is not in adrenal insufficiency at this time. Still concern for adrenal infarct, given seeding of emboli. Continue to monitor. * ICU hyperglycemic protocol HEME - Anemia: S/p pRBC x2 units on admission. Remains stable. * Trend CBC daily. Transfuse at hgb<7, per protocol. ID MSSA endocarditis/bacteremia: * Empiric coverage with Zosyn, vancomycin, again as above. Awaiting finalized blood culture findings * HIV, Hep A, B & C screens pending. LINES/IV ACCESS PIVs intact. DVT PROPHYLAXIS * Heparin gtt. Thank you for allowing us to be part of this patient's care. Please refer to Dr. Baum's documentation for any further recommendations. (2) Anemia: (3) Abdominal pain: (4) Pedal edema: (5) IV drug user: (6) Hypomagnesemia: (7) Elevated troponin: (8) Fever: (9) Pneumonia: Admission and Anticipated Discharge Date Admission Date: May 08, 2022 Supervising Physician Co-Signing Physician Notes Dr. Black was resident physician during care of patient. I separately evaluated patient for dunham portions of the history and the exam. I was present during the critical portion of medical decision making, and I discussed the case with the resident. I generally agree with the findings and plan. Patient with resolved severe sepsis secondary to infective endocarditis. Continue aggressive electrolyte replacements. Stable for downgrade out of ICU awaiting transfer to [facility] for severe infective endocarditis evaluation. D/C zosyn, de=escalate vancomycin to nafcillin. Increase 0.1 mg clonidine from twice daily to 3 times daily, add metoprolol 12.5 mg twice daily Accepting physician: Dr. Garcia transfer to internal medicine Subjective Patient continues to exhibit withdrawal symptoms overnight. On reviewing the MAR, she received Ativan 2 mg x 7, the last of which was given at 7:15 AM. Today, she is awake and alert but only partially oriented (self). She responds nonverbally to her name and partially follows instructions. She appears less agitated than yesterday. Breathing on room air without any difficulty. Unable to tolerate breakfast-patient took 1 bite and appeared to be pocketing it. Review of Systems Review of Systems: All systems reviewed & are unremarkable except as noted in HPI & below Physical Exam Physical Exam: General: AAO x1 (self) in no acute distress. HEENT: Poor dentition, with diffuse enamel erosion. Mucous membranes moist. Neck: Normal ROM. CV: Tachycardic, sinus rhythm. No murmurs gallops or rubs. Respiratory: Tachypneic. Rhonchorous breath sounds. No crackles or wheezes. Abdomen: Soft, nondistended abdomen. No bruits heard on auscultation. Nontender to palpation x4 quadrants. Extremities: Capillary refill <2 sec. 2+ dp equal bilaterally. No pedal edema. Skin: No rashes, bruises, or erythema. Results & Data Results & Data ([facility]) Vital Signs (Past 12 Hours) Vital Signs Temp Pulse Pulse Resp BP Pulse Ox O2 Del Method 05/10/22 07:11 100 H 26 H 95 Room Air 05/10/22 06:00 111 H 98 05/10/22 06:00 119/75 05/10/22 05:00 108 H 32 H 95 05/10/22 04:00 114 H 29 H 95 05/10/22 04:00 122/71 05/10/22 03:01 108/72 05/10/22 03:01 109 H 33 H 96 05/10/22 03:00 108 H 33 H 95 05/10/22 02:48 103 H 20 98 Nasal Cannula 05/10/22 02:00 35.7 C L 108 H 30 H 92 05/10/22 02:00 122/79 05/10/22 01:31 96/59 L 05/10/22 01:31 110 H 39 H 96 05/10/22 01:00 108 H 42 H 95 05/10/22 01:00 113/77 05/10/22 00:30 112 H 26 H 98 05/10/22 00:30 113/77 05/10/22 00:00 114 H 30 H 99 05/10/22 00:00 92/71 L 05/09/22 23:30 108/73 05/09/22 23:30 112 H 28 H 100 05/09/22 23:01 106/70 05/09/22 23:01 116 H 27 H 100 05/09/22 23:00 116 H 42 H 99 05/10/22 00:00 115 H 05/09/22 22:00 99 H 97 05/09/22 21:00 112 H 36 H 98 05/09/22 21:00 113/75 05/09/22 20:30 105/82 05/09/22 20:30 119 H 41 H 97 05/09/22 20:00 116 H 35 H 96 05/09/22 20:00 112/73 05/09/22 22:11 109 H 22 96 Room Air O2 Flow Rate 05/10/22 07:11 05/10/22 06:00 05/10/22 06:00 05/10/22 05:00 05/10/22 04:00 05/10/22 04:00 05/10/22 03:01 05/10/22 03:01 05/10/22 03:00 05/10/22 02:48 2 05/10/22 02:00 05/10/22 02:00 05/10/22 01:31 05/10/22 01:31 05/10/22 01:00 05/10/22 01:00 05/10/22 00:30 05/10/22 00:30 05/10/22 00:00 05/10/22 00:00 05/09/22 23:30 05/09/22 23:30 05/09/22 23:01 05/09/22 23:01 05/09/22 23:00 05/10/22 00:00 05/09/22 22:00 05/09/22 21:00 05/09/22 21:00 05/09/22 20:30 05/09/22 20:30 05/09/22 20:00 05/09/22 20:00 05/09/22 22:11 Resident Activity Tracking Resident Involvement: Resident Care Provided Care Provided: Adult Hospital Medicine
[2022-05-10] MEDS ORDERED: LORazepam 2 MG in SYRINGE 0 ML IV STA (07:58)
[2022-05-10] MEDS: THIAMINE HCL 100 MG in SYRINGE 9 ML IV SCH (08:19)
[2022-05-10] MEDS: NICOTINE 14 MG/24 HR PATCH TD SCH (08:20)
[2022-05-10] MEDS ORDERED: ALBUT/IPRATROP 3MG/0.5MG NEB 3 ML VIAL NEB PRN (10:26)
[2022-05-10] MEDS ORDERED: NAFCILLIN SODIUM 2,000 MG in DEXTROSE 5% 100 ML IV SCH (10:30)
[2022-05-10] MEDS: cloNIDine HCL 0.1 MG TAB PO SCH ×3 (10:38→20:40)
[2022-05-10] MEDS: FOLIC ACID 1 MG TAB PO SCH (10:39)
[2022-05-10] MEDS: METOPROLOL TARTRATE 25 MG TAB PO SCH ×2 (10:39→20:41)
[2022-05-10] MEDS: VANCOMYCIN HCL 1,500 MG in SODIUM CHLORIDE 0.9% 500 ML IV SCH (10:49)
[2022-05-10 11:04] LABS: Partial Thromboplastin Ratio 1.6
[2022-05-10] MEDS: NAFCILLIN SODIUM 2,000 MG in DEXTROSE 5% 100 ML IV SCH ×4 (11:04→22:45)
[2022-05-10 11:46] LABS: Anion Gap 7 (3-11); BUN Creatinine Ratio 24.4 (10-20); Blood Urea Nitrogen 10 mg/dl (6-23); Calcium 7.4 mg/dl (8.5-10.1); Carbon Dioxide 22 mmol/L (21-32); Chloride 105 mmol/L (98-107); Creatinine Clr Calc Pharmacy 149.9 ml/min; Est GFR (African American) > 150.0 ml/min; Est GFR (Non-African American) 131.1 ml/min; Glucose 165 mg/dl (70-99(Fasting)); Potassium 3.8 mmol/L (3.5-5.1); Sodium 134 mmol/L (136-145)
--- NOTE | 2022-05-10 13:00 | Hospitalist Progress Note ---
Date of Service May 10, 2022 Assessment & Plan (1) Severe sepsis: Plan: Secondary to multilobar pneumonia With multisystem organ dysfunction Gram-positive bacteremia with septic pulmonary emboli, infective endocarditis and a splenic infarct Has been on intravenous vancomycin and Zosyn Blood culture is developing gram-positive cocci in clusters and urine culture is pending Continue IVF resuscitation, trend lactate-lactate has been improving Will need ID evaluation Remains afebrile and no leukocytosis (2) Pneumonia: Plan: CXR shows multifocal pneumonia and CT confirms it Patient hypoxic on room air at 88%, currently requiring 4 L via nasal cannula. S/p Vanco and Zosyn Clinically better (3) Bilateral pulmonary embolism: Plan: CTA did not show multiple bilateral pulmonary emboli No saddle embolism Has been on intravenous heparin (4) Infective endocarditis: Plan: Echo of the heart showed-normal LV size, normal LV wall thickness, mild global hypokinesis of the left ventricle with EF of 45 to 50%, aortic valve is trileaflet, there is a small vegetations or mass on the aortic valve, large vegetation or mass on the mitral valve adherent to the base of the posterior annulus measuring 1.6 cm, there is a very large vegetation or mass on the tricus pid valve measuring 1.9 cm with severe tricuspid regurgitation Has multiple vertebral visitations The case was discussed with the CT surgery in [place] and the patient was accepted for transfer Awaiting bed to be transferred to [facility] (5) Acute respiratory failure with hypoxia: Plan: Patient hypoxic on room air at 88%, currently requiring 4 L via nasal cannula. Secondary to multilobar pneumonia , pulmonary embolism with bilateral septic pulmonary emboli Saturating normally on room air (6) Anemia: Plan: Hgb 6.4. Platelets stable at 175K. Stool heme-negative in ED Single blast cells noted on differential. ED discussed with hematology --this is likely felt to be due to sepsis. Will trend it differential continue to monitor. Given history of IV drug abuse, concern for possible hemolytic anemia secondary to endocarditis Transfuse 1 unit PRBC Hemoglobin is 9.0 following transfusion Doubt any leukemia Hemoglobin is 10.0 as of 05/10/2022 (7) IV drug user: Plan: Patient reports using fentanyl --last IV usage was about 1 month ago, patient reports she currently smokes fentanyl " all day long". Last use being just prior to arrival. Has been going through withdrawal symptoms with agitation and unstable eating Has been started on intravenous Precedex Appreciate police communications operator input We will get hepatitis serology and HIV testing (8) Elevated troponin: Plan: HS trop 69.4 Likely demand ischemia in the setting of sepsis Continue to trend troponin-doubt any ACS (9) Electrolyte abnormality: Plan: Na+ 129, K+ 3.3, Mg +1.4 Replace, follow BMP-electrolytes have been normalized (10) Lower extremity edema: Plan: Etiology unclear at this time Consider BL LE Doppler Echo Also noted to have hypoalbuminemia (11) DVT prophylaxis: Plan: IV heparin Admission and Anticipated Discharge Date Admission Date: May 08, 2022 Subjective 05/09/2022 The patient was seen and examined in ICU She remains sedated on intravenous Precedex Remains hemodynamically stable with blood pressure on the lower side at 91/66 Does not have any acute distress Awaiting to be transferred to [facility] 05/10/2022 The patient was seen and examined in ICU She has been restless since this morning and seems to be getting better with intravenous Ativan No more Precedex drip Denies any significant symptoms except weakness and anxiety No fever and or chills, no nausea no vomiting Review of Systems Review of Systems: All systems reviewed and are unremarkable except as mentioned below Neurologic: Restlessness at rest Physical Exam Physical Exam: Sitting on bed with acute anxiety Constitutional: + ill appearing and average body habitus ENMT: external ear and nose normal, oropharynx normal Neck: trachea midline, no thyromegaly Respiratory: no respiratory distress Auscultation: + diminished lung sounds and + crackles (Bilateral crackles) Cardiovascular: Rate/Rhythm: regular rate, regular rhythm and + tachycardic Heart Sounds: normal S1, normal S2 and + murmur (2/6 ESM over precordium) Extremities: no edema Gastrointestinal (Abdomen): Inspection/Auscultation: + abdomen distended (Mildly distended) and normal bowel sounds Percussion/Palpation: abdomen soft; abdomen nontender Musculoskeletal: No acute arthritis in any joint Neurologic: Alert, awake and oriented x3. Restlessness at rest with fine tremors on outstretched hands Lymphatic: no cervical or axillary lymphadenopathy Results & Data Results & Data ([facility]) Vital Signs (Past 12 Hours) Vital Signs Temp Pulse Pulse Resp BP Pulse Ox O2 Del Method 05/10/22 07:11 100 H 26 H 95 Room Air 05/10/22 08:00 109 H 05/10/22 06:00 111 H 98 05/10/22 06:00 119/75 05/10/22 05:00 108 H 32 H 95 05/10/22 04:00 114 H 29 H 95 05/10/22 04:00 122/71 05/10/22 03:01 108/72 05/10/22 03:01 109 H 33 H 96 05/10/22 03:00 108 H 33 H 95 05/10/22 02:48 103 H 20 98 Nasal Cannula 05/10/22 02:00 35.7 C L 108 H 30 H 92 05/10/22 02:00 122/79 05/10/22 01:31 96/59 L 05/10/22 01:31 110 H 39 H 96 05/10/22 01:00 108 H 42 H 95 05/10/22 01:00 113/77 O2 Flow Rate 05/10/22 07:11 05/10/22 08:00 05/10/22 06:00 05/10/22 06:00 05/10/22 05:00 05/10/22 04:00 05/10/22 04:00 05/10/22 03:01 05/10/22 03:01 05/10/22 03:00 05/10/22 02:48 2 05/10/22 02:00 05/10/22 02:00 05/10/22 01:31 05/10/22 01:31 05/10/22 01:00 05/10/22 01:00 Laboratory Results Short CBC 05/10/22 Range/Units 03:48 WBC 10.13 (4.8-10.8) K/ul Hgb 10.0 L (12.0-16.0) g/dl Hct 29.5 L (34.1-44.9) % Plt Count 140 (130-400) K/uL BMP 05/09/22 05/10/22 05/10/22 13:42 03:48 10:39 Sodium 131 L 133 L 134 L Potassium 3.6 2.9 L 3.8 D Chloride 102 102 105 Carbon Dioxide 22 23 22 BUN 10 10 10 Creatinine 0.32 L 0.50 L 0.41 L Glucose 123 H 157 H 165 H Calcium 6.7 L 7.3 L 7.4 L Liver Function 05/10/22 Range/Units 03:48 Total Bilirubin 0.6 D (0.2-1.0) mg/dl AST 17 (13-39) U/L ALT 15 (7-52) U/L Alkaline Phosphatase 131 H (34-104) U/L Albumin 2.1 L (3.4-5.0) gm/dl Medications Administered Current Inpatient Medications Albuterol (Albut/Ipratrop 3mg/0.5mg Neb 3 Ml Vial) 3 ml NEB Q4R PRN; Protocol PRN Reason: Agitation Stop: 06/08/22 18:59 Clonidine HCl (Clonidine Hcl 0.1 Mg Tab) 0.1 mg PO TID [facility] Stop: 06/09/22 13:59 Folic Acid (Folic Acid 1 Mg Tab) 1 mg PO QAM [facility] Stop: 06/08/22 08:59 Last Admin: 05/10/22 10:39 Dose: 1 mg Heparin Sodium/Dextrose (Heparin Sodium/Dextrose) 25,000 units in 500 mls @ 21 mls/hr IV .[id number] [facility]; Protocol Stop: 06/07/22 21:14 Last Titration: 05/10/22 11:27 Dose: 1,050 units/hr, 21 mls/hr Nafcillin Sodium 2,000 mg/ (Dextrose) 110 mls @ 110 mls/hr IV Q4H [facility]; Protocol Stop: 06/21/22 10:29 Last Infusion: 05/10/22 12:04 Dose: Infused Lorazepam (Lorazepam 1 Mg Tab) 1 mg PO UD PRN; Protocol PRN Reason: EtOH Withdrawal AWSS Score 6,7 Stop: 06/07/22 22:44 Lorazepam (Lorazepam 1 Mg Tab) 2 mg PO UD PRN; Protocol PRN Reason: EtOH Withdrawal AWSS Score 8,9 Stop: 06/07/22 22:44 Last Admin: 05/10/22 07:15 Dose: 2 mg Menthol (Cough Drop (Sugar Free) Carmen 24 Carmen/1 Box) 1 carmen BUCCAL PRN PRN PRN Reason: Sore Throat Stop: 06/08/22 21:35 Metoprolol Tartrate (Metoprolol Tartrate 25 Mg Tab) 12.5 mg PO BID [facility] Stop: 06/09/22 09:44 Last Admin: 05/10/22 10:39 Dose: 12.5 mg Miscellaneous (Icu Protocol For Hyperglycemia) 1 each N/A PRN PRN; Protocol PRN Reason: Hyperglycemia Protocol Stop: 05/10/22 20:53 Miscellaneous (Remove Nicoderm Patch) 1 each N/A DAILY@0859 [facility] Stop: 06/09/22 08:58 Last Admin: 05/10/22 08:12 Dose: 1 each Nicotine (Nicotine 14 Mg/24 Hr Patch) 14 mg TD QAM [facility] Stop: 06/08/22 15:59 Last Admin: 05/10/22 08:20 Dose: 14 mg Sodium Chloride (Sodium Chloride 0.65% Na Soln 45 Ml ([place])) 1 sprays NA PRN PRN PRN Reason: Dryness Stop: 06/08/22 18:16 Last Admin: 05/09/22 18:19 Dose: 1 sprays
--- NOTE | 2022-05-10 13:11 | Billing Data ---
Date of Service May 10, 2022 Coding Level of Care Code 57933 Subseq Hosp Care Lvl 3
[2022-05-10 18:00] LABS: Partial Thromboplastin Ratio 1.4; Partial Thromboplastin Time 39.8 Seconds (21.0-31.0)
[2022-05-10] MEDS: HEPARIN SODIUM/DEXTROSE 25,000 UNITS/500 ML BAG IV SCH (20:40)
[2022-05-11 00:42] LABS: Partial Thromboplastin Ratio 1.5; Partial Thromboplastin Time 41.6 Seconds (21.0-31.0)
[2022-05-11] MEDS: LORazepam 1 MG TAB PO PRN ×6 (01:42→22:33)
[2022-05-11] MEDS: NAFCILLIN SODIUM 2,000 MG in DEXTROSE 5% 100 ML IV SCH ×4 (02:05→14:15)
[2022-05-11 07:28] LABS: Basophils # (auto) 0.03 K/uL (0-0.2); Basophils % (auto) 0.2 %; Eosinophils # (auto) 0.02 K/uL (0-0.50); Eosinophils % (auto) 0.2 %; Hematocrit (blood only) 27.2 % (34.1-44.9); Hemoglobin 9.1 g/dl (12.0-16.0); Immature Granulocytes # (auto) 0.23 K/uL (0.00-0.02); Immature Granulocytes % (auto) 1.9 %; Lymphocytes # (auto) 1.56 K/uL (1.2-3.4); Lymphocytes % (auto) 12.9 %; Mean Corpuscular Hemoglobin 27.4 pg (25.0-34.0); Mean Corpuscular Hgb Conc 33.5 g/dL (32.0-36.0); Mean Corpuscular Volume 81.9 fL (80.0-100.0); Mean Platelet Volume 10.2 fL (9.4-12.3); Monocytes # (auto) 0.45 K/uL (0.24-0.82); Monocytes % (auto) 3.7 %; Neutrophils # (auto) 9.78 K/uL (1.4-6.5); Neutrophils % (auto) 81.1 %; Platelet Count 153 K/uL (130-400); RDW Coefficient of Variation 14.1 % (11.5-14.5); RDW Standard Deviation 41.7 fL (36.4-46.3); Red Blood Count 3.32 M/uL (3.93-5.22); White Blood Count 12.07 K/ul (4.8-10.8)
[2022-05-11 07:41] LABS: Partial Thromboplastin Ratio 1.6; Partial Thromboplastin Time 44.1 Seconds (21.0-31.0); Prothrombin Time 11.1 Seconds (9.0-12.0)
[2022-05-11 08:02] LABS: Albumin Globulin Ratio 0.6 (0.9-2); Albumin Level 2.1 gm/dl (3.4-5.0); BUN Creatinine Ratio 17.4 (10-20); Bilirubin,Total 0.5 mg/dl (0.2-1.0); Calcium 7.4 mg/dl (8.5-10.1); Creatinine Clr Calc Pharmacy 133.6 ml/min; Est GFR (African American) 146.3 ml/min; Est GFR (Non-African American) 126.2 ml/min; Globulin 3.6 gm/dl (2.5-4.0); Potassium 3.3 mmol/L (3.5-5.1); Total Protein 5.7 gm/dl (6.0-8.3)
[2022-05-11] MEDS: METOPROLOL TARTRATE 25 MG TAB PO SCH ×2 (10:04→20:18)
[2022-05-11] MEDS: NICOTINE 14 MG/24 HR PATCH TD SCH (10:20)
[2022-05-11] MEDS: FOLIC ACID 1 MG TAB PO SCH (10:21)
[2022-05-11] MEDS: cloNIDine HCL 0.1 MG TAB PO SCH ×3 (10:39→20:18)
[2022-05-11] MEDS ORDERED: PROMETHAZINE HCL 12.5 MG in SODIUM CHLORIDE 0.9% 50 ML IV PRN (11:45)
--- NOTE | 2022-05-11 12:05 | Hospitalist Progress Note ---
Date of Service May 11, 2022 Assessment & Plan (1) Severe sepsis: Plan: Secondary to multilobar pneumonia With multisystem organ dysfunction Gram-positive bacteremia with septic pulmonary emboli, infective endocarditis and a splenic infarct Has been on intravenous vancomycin and Zosyn Blood culture is developing gram-positive cocci in clusters and urine culture is pending Continue IVF resuscitation, trend lactate-lactate has been improving Will need ID evaluation Sepsis seems to be likely secondary to infective endocarditis and bacteremia Clinically much better and will continue current IV antibiotic of nafcillin to cover MSSA Has been having withdrawal symptoms IV drugs/alcohol Is reasonably controlled with intravenous Ativan as needed Following alcohol withdrawal protocol (2) Pneumonia: Plan: CXR shows multifocal pneumonia and CT confirms it Patient hypoxic on room air at 88%, currently requiring 4 L via nasal cannula. S/p Vanco and Zosyn Clinically much better Has been on intravenous nafcillin (3) Bilateral pulmonary embolism: Plan: CTA did not show multiple bilateral pulmonary emboli No saddle embolism Has been on intravenous heparin (4) Infective endocarditis: Plan: Echo of the heart showed-normal LV size, normal LV wall thickness, mild global hypokinesis of the left ventricle with EF of 45 to 50%, aortic valve is trileaflet, there is a small vegetations or mass on the aortic valve, large vegetation or mass on the mitral valve adherent to the base of the posterior annulus measuring 1.6 cm, there is a very large vegetation or mass on the tricuspid valve measuring 1.9 cm with severe tricuspid regurgitation Has multiple vertebral visitations The case was discussed with the CT surgery in [place] and the patient was accepted for transfer Awaiting bed to be transferred to [facility] Denies any cardiac symptoms Has been getting intravenous nafcillin for endocarditis Awaiting transfer to [facility] at [place] (5) Acute respiratory failure with hypoxia: Plan: Patient hypoxic on room air at 88%, currently requiring 4 L via nasal cannula. Secondary to multilobar pneumonia , pulmonary embolism with bilateral septic pulmonary emboli Saturating normally on room air (6) Anemia: Plan: Hgb 6.4. Platelets stable at 175K. Stool heme-negative in ED Single blast cells noted on differential. ED discussed with hematology --this is likely felt to be due to sepsis. Will trend it differential continue to monitor. Given history of IV drug abuse, concern for possible hemolytic anemia secondary to endocarditis Transfuse 1 unit PRBC Hemoglobin is 9.0 following transfusion Doubt any leukemia Hemoglobin is 10.0 as of 05/10/2022 (7) IV drug user: Plan: Patient reports using fentanyl --last IV usage was about 1 month ago, patient reports she currently smokes fentanyl " all day long". Last use being just prior to arrival. Has been going through withdrawal symptoms with agitation and unstable eating Has been started on intravenous Precedex Appreciate records analysis manager input We will get hepatitis serology and HIV testing (8) Elevated troponin: Plan: HS trop 69.4 Likely demand ischemia in the setting of sepsis Continue to trend troponin-doubt any ACS (9) Electrolyte abnormality: Plan: Na+ 129, K+ 3.3, Mg +1.4 Replace, follow BMP-electrolytes have been normalized (10) Lower extremity edema: Plan: Etiology unclear at this time Consider BL LE Doppler Echo Also noted to have hypoalbuminemia (11) DVT prophylaxis: Plan: IV heparin Admission and Anticipated Discharge Date Admission Date: May 08, 2022 Subjective 05/09/2022 The patient was seen and examined in ICU She remains sedated on intravenous Precedex Remains hemodynamically stable with blood pressure on the lower side at 91/66 Does not have any acute distress Awaiting to be transferred to [facility] 05/10/2022 The patient was seen and examined in ICU She has been restless since this morning and seems to be getting better with intravenous Ativan No more Precedex drip Denies any significant symptoms except weakness and anxiety No fever and or chills, no nausea no vomiting 05/11/2022 Patient was seen and examined in telemetry unit She remains pleasantly confused, anxious and a little bit agitated Generally weak but denies any other symptom Review of Systems Review of Systems: All systems reviewed and are unremarkable except as mentioned below Neurologic: Restlessness at rest Physical Exam Physical Exam: Lying in bed with acute anxiety Constitutional: + ill appearing and average body habitus ENMT: external ear and nose normal, oropharynx normal Neck: trachea midline, no thyromegaly Respiratory: no respiratory distress Auscultation: + diminished lung sounds and + crackles (Bilateral crackles) Cardiovascular: Rate/Rhythm: regular rate, regular rhythm and + tachycardic Heart Sounds: normal S1, normal S2 and + murmur (2/6 ESM over precordium) Extremities: no edema Gastrointestinal (Abdomen): Inspection/Auscultation: + abdomen distended (Mildly distended) and normal bowel sounds Percussion/Palpation: abdomen soft; abdomen nontender Musculoskeletal: No acute arthritis in any joint Neurologic: Alert, awake and oriented . Pleasantly confused. Moving all limbs equally. Has minimal tremors involving the outstretched hands Lymphatic: no cervical or axillary lymphadenopathy Results & Data Results & Data ([facility]) Vital Signs (Past 12 Hours) Vital Signs Temp Pulse Pulse Resp BP Pulse Ox O2 Del Method 05/11/22 11:27 36.7 C 98 H 22 124/84 97 Room Air 05/11/22 07:13 99 H 05/11/22 07:13 38 H 116/94 93 Room Air 05/11/22 04:45 36.4 C L 90 20 104/73 05/11/22 04:15 36.5 C 94 H 22 127/92 05/11/22 01:35 36.5 C 97 H 20 128/88 95 Room Air 05/11/22 00:00 98 H 05/11/22 00:02 Room Air Laboratory Results Short CBC 05/11/22 Range/Units 07:09 WBC 12.07 H (4.8-10.8) K/ul Hgb 9.1 L (12.0-16.0) g/dl Hct 27.2 L (34.1-44.9) % Plt Count 153 (130-400) K/uL BMP 05/11/22 07:09 Sodium 136 Potassium 3.3 L Chloride 107 Carbon Dioxide 23 BUN 8 Creatinine 0.46 L Glucose 124 H Calcium 7.4 L Liver Function 05/11/22 Range/Units 07:09 Total Bilirubin 0.5 (0.2-1.0) mg/dl AST 12 L (13-39) U/L ALT 13 (7-52) U/L Alkaline Phosphatase 107 H (34-104) U/L Albumin 2.1 L (3.4-5.0) gm/dl Medications Administered Current Inpatient Medications Albuterol (Albut/Ipratrop 3mg/0.5mg Neb 3 Ml Vial) 3 ml NEB Q4R PRN; Protocol PRN Reason: Agitation Stop: 06/08/22 18:59 Clonidine HCl (Clonidine Hcl 0.1 Mg Tab) 0.1 mg PO TID [facility] Stop: 06/09/22 13:59 Last Admin: 05/11/22 10:39 Dose: 0.1 mg Folic Acid (Folic Acid 1 Mg Tab) 1 mg PO QAM [facility] Stop: 06/08/22 08:59 Last Admin: 05/11/22 10:21 Dose: 1 mg Heparin Sodium/Dextrose (Heparin Sodium/Dextrose) 25,000 units in 500 mls @ 24 mls/hr IV .[id number] [facility]; Protocol Stop: 06/07/22 21:14 Last Titration: 05/11/22 07:55 Dose: 1,200 units/hr, 24 mls/hr Nafcillin Sodium 2,000 mg/ (Dextrose) 110 mls @ 110 mls/hr IV Q4H [facility]; Protocol Stop: 06/21/22 10:29 Last Infusion: 05/11/22 11:33 Dose: Infused Promethazine HCl 12.5 mg/ (Sodium Chloride) 50.5 mls @ 202 mls/hr IV Q6H PRN PRN Reason: Nausea And Vomiting Stop: 06/10/22 11:44 Lorazepam (Lorazepam 1 Mg Tab) 1 mg PO UD PRN; Protocol PRN Reason: EtOH Withdrawal AWSS Score 6,7 Stop: 06/07/22 22:44 Last Admin: 05/11/22 01:42 Dose: 1 mg Lorazepam (Lorazepam 1 Mg Tab) 2 mg PO UD PRN; Protocol PRN Reason: EtOH Withdrawal AWSS Score 8,9 Stop: 06/07/22 22:44 Last Admin: 05/11/22 10:04 Dose: 2 mg Menthol (Cough Drop (Sugar Free) Carmen 24 Carmen/1 Box) 1 carmen BUCCAL PRN PRN PRN Reason: Sore Throat Stop: 06/08/22 21:35 Metoprolol Tartrate (Metoprolol Tartrate 25 Mg Tab) 12.5 mg PO BID [facility] Stop: 06/09/22 09:44 Last Admin: 05/11/22 10:04 Dose: 12.5 mg Miscellaneous (Remove Nicoderm Patch) 1 each N/A DAILY@0859 [facility] Stop: 06/09/22 08:58 Last Admin: 05/11/22 10:07 Dose: 1 each Nicotine (Nicotine 14 Mg/24 Hr Patch) [facility] Stop: 06/08/22 15:59 Last Admin: 05/11/22 10:20 Dose: 14 mg Sodium Chloride (Sodium Chloride 0.65% Na Soln 45 Ml ([place])) 1 sprays NA PRN PRN PRN Reason: Dryness Stop: 06/08/22 18:16 Last Admin: 05/09/22 18:19 Dose: 1 sprays
[2022-05-11 15:21] LABS: Partial Thromboplastin Ratio 1.2; Partial Thromboplastin Time 33.8 Seconds (21.0-31.0)
[2022-05-11] MEDS ORDERED: HEPARIN SOD (PORCINE) 1000 UNIT/ML IV ONE (15:45)
[2022-05-11] MEDS ORDERED: diphenhydrAMINE 50 MG/ML VIAL IV STA (16:06)
--- NOTE | 2022-05-11 16:22 | Communication Note ---
Date of Service: May 11, 2022 The patient developed generalized erythematous macules likely secondary to nafcillin. The case was discussed with ID on-call in [place] Dr. Mendoza and antibiotic were changed to intravenous Ancef 2 g IV every [address] Jane Childs
[2022-05-11] MEDS: ceFAZolin 2000MG 2,000 MG/15 ML SYR IV SCH (17:12)
[2022-05-11] MEDS: HEPARIN SODIUM/DEXTROSE 25,000 UNITS/500 ML BAG IV SCH (17:21)
--- NOTE | 2022-05-11 23:17 | Discharge Summary ---
Date of Service May 11, 2022 Admission HPI Per Admitting Provider 36-year-old female with PMH depression, anxiety, drug abuse (fentanyl via IV and smoking), and other problems listed below who presents to the ED for evaluation of generalized weakness and body aches. Patient reports that she has been feeling sick for about the past 1 month. Patient was seen at [place] [facility] and diagnosed with pneumonia and UTI. Patient was discharged on prednisone and levofloxacin. Patient reports completing both courses of the medications. Patient reports no improvement in her symptoms. She reports feeling extremely weak. She also notes body aches and feeling feverish however did not check her temperature. She reports a productive cough. She states that she has bilateral lower rib pain with taking a deep breath. Patient is noted to have bilateral lower extremity edema on exam. She states this has been present for about the past 1 week. No chest pain or palpitations. Denies lightheadedness, dizziness, diaphoresis, syncopal events. No abdominal pain, nausea, vomiting, diarrhea. Denies urinary symptoms. Patient states she last used IV fentanyl about 1 month ago however smokes fentanyl " all day long", last using this morning prior to calling EMS. In the ED, patient was found febrile at 39.6, tachycardic, elevated lactate. Labs also show anemia with Hgb 6.4. Differential shows a single blast cell. There are several electrolyte abnormalities noted with Na+ 129, K+ 3.3, Mg +1.3, CA +7.8. HS troponin 69.4. Admission Exam (Per Admitting) Eyes Constitutional: WD/WN, vitals as above + ill appearing and + disheveled; no acute distress Eyes: PERRL, conjunctivae normal, anicteric sclerae ENMT: external ear and nose normal, oropharynx normal Mouth: + poor dentition Respiratory: normal respiratory effort; no respiratory distress Auscultation: + rhonchi (Bilateral bases) Cardiovascular: Rate/Rhythm: regular rhythm and + tachycardic Vessels: normal peripheral pulses Extremities: + edema (+2-3 edema BLE) Gastrointestinal (Abdomen): normal bowel sounds, soft, nontender, no hepatosplenomegaly Musculoskeletal: no cyanosis or clubbing, extremities motor strength 5/5 Skin: no rashes, warm and dry Neurologic: PERRL, EOMI, accommodation nl, no face palsy, no dysarthria Psychiatric: Orientation: alert and oriented x 3 Affect: + anxious affect and + tearful affect Discharge Data Consultations 05/08/22 17:05 ED Decision to Admit Stat 05/08/22 20:54 Consult [employer] Routine 05/09/22 18:39 Burn CD for patient Routine Hospital Course (1) Pneumonia: Patient was waiting for transfer to [facility] and as bed is available now getting transferred tonight. Last Progress notes By : The patient developed generalized erythematous macules likely secondary to nafcillin. The case was discussed with ID on-call in [place] Dr. Mendoza and antibiotic were changed to intravenous Ancef 2 g IV every [address] Jane Childs 1) Severe sepsis: Plan: Secondary to multilobar pneumonia With multisystem organ dysfunction Gram-positive bacteremia with septic pulmonary emboli, infective endocarditis and a splenic infarct Has been on intravenous vancomycin and Zosyn Blood culture is developing gram-positive cocci in clusters and urine culture is pending Continue IVF resuscitation, trend lactate-lactate has been improving Will need ID evaluation Sepsis seems to be likely secondary to infective endocarditis and bacteremia Clinically much better and will continue current IV antibiotic of nafcillin to cover MSSA Has been having withdrawal symptoms IV drugs/alcohol Is reasonably controlled with intravenous Ativan as needed Following alcohol withdrawal protocol (2) Pneumonia: Plan: CXR shows multifocal pneumonia and CT confirms it Patient hypoxic on room air at 88%, currently requiring 4 L via nasal cannula. S/p Vanco and Zosyn Clinically much better Has been on intravenous nafcillin (3) Bilateral pulmonary embolism: Plan: CTA did not show multiple bilateral pulmonary emboli No saddle embolism Has been on intravenous heparin (4) Infective endocarditis: Plan: Echo of the heart showed-normal LV size, normal LV wall thickness, mild global hypokinesis of the left ventricle with EF of 45 to 50%, aortic valve is trileaflet, there is a small vegetations or mass on the aortic valve, large vegetation or mass on the mitral valve adherent to the base of the posterior annulus measuring 1.6 cm, there is a very large vegetation or mass on the tricuspid valve measuring 1.9 cm with severe tricuspid regurgitation Has multiple vertebral visitations The case was discussed with the CT surgery in [place] and the patient was accepted for transfer Awaiting bed to be transferred to [facility] Denies any cardiac symptoms Has been getting intravenous nafcillin for endocarditis Awaiting transfer to [facility] at [place] (5) Acute respiratory failure with hypoxia: Plan: Patient hypoxic on room air at 88%, currently requiring 4 L via nasal cannula. Secondary to multilobar pneumonia , pulmonary embolism with bilateral septic pulmonary emboli Saturating normally on room air (6) Anemia: Plan: Hgb 6.4. Platelets stable at 175K. Stool heme-negative in ED Single blast cells noted on differential. ED discussed with hematology --this is likely felt to be due to sepsis. Will trend it differential continue to mon itor. Given history of IV drug abuse, concern for possible hemolytic anemia secondary to endocarditis Transfuse 1 unit PRBC Hemoglobin is 9.0 following transfusion Doubt any leukemia Hemoglobin is 10.0 as of 05/10/2022 (7) IV drug user: Plan: Patient reports using fentanyl --last IV usage was about 1 month ago, patient reports she currently smokes fentanyl " all day long". Last use being just prior to arrival. Has been going through withdrawal symptoms with agitation and unstable eating Has been started on intravenous Precedex Appreciate heavy equipment rental manager input We will get hepatitis serology and HIV testing (8) Elevated troponin: Plan: HS trop 69.4 Likely demand ischemia in the setting of sepsis Continue to trend troponin-doubt any ACS (9) Electrolyte abnormality: Plan: Na+ 129, K+ 3.3, Mg +1.4 Replace, follow BMP-electrolytes have been normalized (10) Lower extremity edema: Plan: Etiology unclear at this time Consider BL LE Doppler Echo Also noted to have hypoalbuminemia (11) DVT prophylaxis: Plan: IV heparin (2) Bilateral pulmonary embolism: (3) Infective endocarditis: (4) Acute respiratory failure with hypoxia: (5) Anemia: (6) IV drug user: (7) Elevated troponin: (8) Electrolyte abnormality: (9) Lower extremity edema:
--- NOTE | 2022-05-11 23:25 | Discharge Summary ---
Date of Service May 11, 2022 Admission HPI Per Admitting Provider 36-year-old female with PMH depression, anxiety, drug abuse (fentanyl via IV and smoking), and other problems listed below who presents to the ED for evaluation of generalized weakness and body aches. Patient reports that she has been feeling sick for about the past 1 month. Patient was seen at [place] [facility] and diagnosed with pneumonia and UTI. Patient was discharged on prednisone and levofloxacin. Patient reports completing both courses of the medications. Patient reports no improvement in her symptoms. She reports feeling extremely weak. She also notes body aches and feeling feverish however did not check her temperature. She reports a productive cough. She states that she has bilateral lower rib pain with taking a deep breath. Patient is noted to have bilateral lower extremity edema on exam. She states this has been present for about the past 1 week. No chest pain or palpitations. Denies lightheadedness, dizziness, diaphoresis, syncopal events. No abdominal pain, nausea, vomiting, diarrhea. Denies urinary symptoms. Patient states she last used IV fentanyl about 1 month ago however smokes fentanyl " all day long", last using this morning prior to calling EMS. In the ED, patient was found febrile at 39.6, tachycardic, elevated lactate. Labs also show anemia with Hgb 6.4. Differential shows a single blast cell. There are several electrolyte abnormalities noted with Na+ 129, K+ 3.3, Mg +1.3, CA +7.8. HS troponin 69.4. Principal Diagnosis Endocarditis Discharge Data Allergies Allergy/AdvReac Type Severity Reaction Status Date / Time No Known Allergies Allergy Unknown Verified 05/08/22 16:58 Consultations 05/08/22 17:05 ED Decision to Admit Stat 05/08/22 20:54 Consult Donor Technician Routine 05/09/22 18:39 Burn CD for patient Routine Ordered Studies 05/08/22 17:16 CT angio chest PE protocol Stat 05/08/22 17:19 CT Abd and Pelvis [CT abd pelvis IV con only] Stat Total Time Total Time Spent Total Time Spent (In Minutes): 30minutes Discharge Plan Discharge Items Patient Disposition: Transfer Acute Care Hospital Reason For Visit: SEPSIS, PNEUMONIA Discharge Diagnosis: Infective endocarditis, septic pulmonary emboli, pneumonia Condition on Discharge: Fair Activity: Resume your previous activity Non-emergency contact: Primary Care Provider Call non-emergency contact if: you have any medication questions and your symptoms worsen Follow-up/Referrals: Lenny Cleary MD [Primary Care Provider] - Diet: Regular Addtl Attending Provider Instructions: She was transferred to [facility] for continued management All of her inpatient medications were continued on transfer as below: Current Inpatient Medications Ancef iv 2gm TId ativan prn for alcohol withdrawal folic acid 1mg po daily clonidine 0.1mg po tid IV heparin nicotine 14mg TD daily Pending Studies at Discharge: No Stand-Alone Forms: My [facility] [employer] Skilled Items Patient informed of condition?: Yes DNR: No Discharge Level of Care: Other Communicable Disease: No Discharge Prognosis: Stable Lines: Peripheral IV Urinary Catheter: Yes Medications and DC Order Prescriptions: No Action No Known Home Medications Discharge Orders: Discharge Order (Routine); Ordered 05/09/22 Ordered By: Luis Daniel Childs Admission Data Admit Date/Time: 05/08/22 17:39 Attending Provider: Luis Daniel Childs Admit Provider: Amy Osuna Primary Care Provider: Lenny Cleary Other Providers: Amy Osuna ; Ronald Baum
[2022-05-11] MEDS ORDERED: LORazepam 0.5 MG in SYRINGE 0 ML IV ONE (23:30)
[2022-05-11 23:40] LABS: Partial Thromboplastin Ratio 1.7
[2022-05-12] MEDS: ceFAZolin 2000MG 2,000 MG/15 ML SYR IV SCH ×4 (00:19→23:50)
[2022-05-12 00:44] LABS: Partial Thromboplastin Time 46.7 Seconds (21.0-31.0)
[2022-05-12] MEDS ORDERED: OLANZapine 10 MG/2.1 ML SDV IM STA (02:00)
[2022-05-12] MEDS ORDERED: methylPREDNISolone 50 MG in SYRINGE 0 ML IV ONE (02:01)
[2022-05-12] MEDS ORDERED: diphenhydrAMINE 50 MG/ML VIAL IV STA (02:05)
[2022-05-12] MEDS: LORazepam 1 MG TAB PO PRN ×6 (05:53→23:43)
[2022-05-12 06:29] LABS: Basophils # (auto) 0.03 K/uL (0-0.2); Basophils % (auto) 0.3 %; Eosinophils # (auto) 0.04 K/uL (0-0.50); Eosinophils % (auto) 0.4 %; Hematocrit (blood only) 27.3 % (34.1-44.9); Hemoglobin 8.9 g/dl (12.0-16.0); Immature Granulocytes # (auto) 0.22 K/uL (0.00-0.02); Immature Granulocytes % (auto) 2.5 %; Lymphocytes # (auto) 1.68 K/uL (1.2-3.4); Lymphocytes % (auto) 18.9 %; Mean Corpuscular Hemoglobin 27.6 pg (25.0-34.0); Mean Corpuscular Hgb Conc 32.6 g/dL (32.0-36.0); Mean Corpuscular Volume 84.5 fL (80.0-100.0); Monocytes # (auto) 0.41 K/uL (0.24-0.82); Monocytes % (auto) 4.6 %; Neutrophils # (auto) 6.52 K/uL (1.4-6.5); Neutrophils % (auto) 73.3 %; Platelet Count 150 K/uL (130-400); RDW Coefficient of Variation 14.6 % (11.5-14.5); RDW Standard Deviation 44.7 fL (36.4-46.3); Red Blood Count 3.23 M/uL (3.93-5.22)
[2022-05-12 06:50] LABS: Albumin Globulin Ratio 0.6 (0.9-2); Albumin Level 2.2 gm/dl (3.4-5.0); BUN Creatinine Ratio 11.8 (10-20); Bilirubin,Total 0.3 mg/dl (0.2-1.0); Calcium 7.5 mg/dl (8.5-10.1); Creatinine Clr Calc Pharmacy 120.5 ml/min; Est GFR (African American) 141.4 ml/min; Globulin 3.5 gm/dl (2.5-4.0); Total Protein 5.7 gm/dl (6.0-8.3)
[2022-05-12 06:55] LABS: INR 1.1 (0.9-1.1); Partial Thromboplastin Ratio 1.7; Prothrombin Time 11.3 Seconds (9.0-12.0)
[2022-05-12 06:59] LABS: Partial Thromboplastin Time 46.4 Seconds (21.0-31.0)
[2022-05-12] MEDS ORDERED: POTASSIUM CHLORIDE CRTAB 20 MEQ TABCR PO STA (07:57)
[2022-05-12] MEDS: POTASSIUM CHLORIDE / WTR 10 MEQ/100 ML PLCT IV SCH ×2 (08:57→10:23)
[2022-05-12] MEDS: NICOTINE 14 MG/24 HR PATCH TD SCH (09:30)
[2022-05-12] MEDS: FOLIC ACID 1 MG TAB PO SCH (09:30)
[2022-05-12] MEDS: METOPROLOL TARTRATE 25 MG TAB PO SCH ×3 (09:30→22:42)
[2022-05-12] MEDS: cloNIDine HCL 0.1 MG TAB PO SCH ×4 (09:30→22:43)
--- NOTE | 2022-05-12 11:19 | Hospitalist Progress Note ---
Date of Service May 12, 2022 Assessment & Plan (1) Pneumonia: Plan: Patient was waiting for transfer to [facility] and as bed is available now getting transferred tonight. 1) Severe sepsis: Plan: Secondary to multilobar pneumonia With multisystem organ dysfunction Gram-positive bacteremia with septic pulmonary emboli, infective endocarditis and a splenic infarct Has been on intravenous vancomycin and Zosyn Blood culture is developing gram-positive cocci in clusters and urine culture is pending Continue IVF resuscitation, trend lactate-lactate has been improving Will need ID evaluation Sepsis seems to be likely secondary to infective endocarditis and bacteremia Clinically much better and will continue current IV antibiotic of nafcillin to cover MSSA Developed a generalized erythematous macule likely secondary to penicillin without any other significant symptoms Discussed with fashion consultant sales ID specialist Dr. Mendoza in [place] and the antibiotic were changed to Ancef 2 g every 8 hourly Rash is improved Repeat blood culture will be taken Has been having withdrawal symptoms IV drugs/alcohol Is reasonably controlled with intravenous Ativan as needed Following alcohol withdrawal protocol Remains anxious with occasional agitation and requiring one-to-one sitter (2) Pneumonia: Plan: CXR shows multifocal pneumonia and CT confirms it Patient hypoxic on room air at 88%, currently requiring 4 L via nasal cannula. S/p Vanco and Zosyn Clinically much better Has been on intravenous nafcillin -developed rash without any other symptoms The antibiotic were changed to Ancef 2 g every 8 hourly as per ID specialist and then (3) Bilateral pulmonary embolism: Plan: CTA did not show multiple bilateral pulmonary emboli No saddle embolism Has been on intravenous heparin (4) Infective endocarditis: Plan: Echo of the heart showed-normal LV size, normal LV wall thickness, mild global hypokinesis of the left ventricle with EF of 45 to 50%, aortic valve is trileaflet, there is a small vegetations or mass on the aortic valve, large vegetation or mass on the mitral valve adherent to the base of the posterior annulus measuring 1.6 cm, there is a very large vegetation or mass on the tricuspid valve measuring 1.9 cm with severe tricuspid regurgitation Has multiple vertebral visitations The case was discussed with the CT surgery in [place] and the patient was accepted for transfer Awaiting bed to be transferred to [facility] Denies any cardiac symptoms Has been getting intravenous nafcillin for endocarditis Awaiting transfer to [facility] at [place] (5) Acute respiratory failure with hypoxia: Plan: Patient hypoxic on room air at 88%, currently requiring 4 L via nasal cannula. Secondary to multilobar pneumonia , pulmonary embolism with bilateral septic pulmonary emboli Saturating normally on room air (6) Anemia: Plan: Hgb 6.4. Platelets stable at 175K. Stool heme-negative in ED Single blast cells noted on differential. ED discussed with hematology --this is likely felt to be due to sepsis. Will trend it differential continue to monitor. Given history of IV drug abuse, concern for possible hemolytic anemia secondary to endocarditis Transfuse 1 unit PRBC Hemoglobin is 9.0 following transfusion Doubt any leukemia Hemoglobin is 10.0 as of 05/10/2022 (7) IV drug user: Plan: Patient reports using fentanyl --last IV usage was about 1 month ago, patient reports she currently smokes fentanyl " all day long". Last use being just prior to arrival. Has been going through withdrawal symptoms with agitation and unstable eating Has been started on intravenous Precedex Appreciate nremt input We will get hepatitis serology and HIV testing HIV is nonreactive Hepatitis panel is pending (8) Elevated troponin: Plan: HS trop 69.4 Likely demand ischemia in the setting of sepsis Continue to trend troponin-doubt any ACS (9) Electrolyte abnormality: Plan: Na+ 129, K+ 3.3, Mg +1.4 Replace, follow BMP-electrolytes have been normalized (10) Lower extremity edema: Plan: Etiology unclear at this time Consider BL LE Doppler Echo Also noted to have hypoalbuminemia (11) DVT prophylaxis: Plan: IV heparin (2) Bilateral pulmonary embolism: (3) Infective endocarditis: (4) Acute respiratory failure with hypoxia: (5) Anemia: (6) IV drug user: (7) Elevated troponin: (8) Electrolyte abnormality: (9) Lower extremity edema: Admission and Anticipated Discharge Date Admission Date: May 08, 2022 Subjective 05/09/2022 The patient was seen and examined in ICU She remains sedated on intravenous Precedex Remains hemodynamically stable with blood pressure on the lower side at 91/66 Does not have any acute distress Awaiting to be transferred to [facility] 05/10/2022 The patient was seen and examined in ICU She has been restless since this morning and seems to be getting better with intravenous Ativan No more Precedex drip Denies any significant symptoms except weakness and anxiety No fever and or chills, no nausea no vomiting 05/11/2022 Patient was seen and examined in telemetry unit She remains pleasantly confused, anxious and a little bit agitated Generally weak but denies any other symptom 05/12/2022 The patient was seen and examined in telemetry unit She remains stable with occasional agitation and requiring one-to-one sitter Generally weak but denies any other significant symptoms She has been telling that she is getting better Review of Systems Review of Systems: All systems reviewed and are unremarkable except as noted below Physical Exam Physical Exam: Lying in bed with acute anxiety Constitutional: + ill appearing and average body habitus ENMT: external ear and nose normal, oropharynx normal Neck: trachea midline, no thyromegaly Respiratory: no respiratory distress Auscultation: + diminished lung sounds and + crackles (Occasional crackles at the bases) Cardiovascular: Rate/Rhythm: regular rate, regular rhythm and + tachycardic Heart Sounds: normal S1, normal S2 and + murmur (2/6 ESM over precordium) Extremities: no edema Gastrointestinal (Abdomen): Inspection/Auscultation: + abdomen distended (Mildly distended) and normal bowel sounds Percussion/Palpation: abdomen soft; abdomen nontender Musculoskeletal: No acute arthritis in any joint Neurologic: Alert, awake and oriented . Pleasantly confused. Moving all limbs equally. Has minimal tremors involving the outstretched hands Lymphatic: no cervical or axillary lymphadenopathy Results & Data Results & Data ([facility]) Vital Signs (Past 12 Hours) Vital Signs Temp Pulse Pulse Resp BP Pulse Ox O2 Del Method 05/12/22 07:25 36.7 C 93 H 19 121/86 97 Room Air 05/12/22 04:01 36.4 C L 92 H 18 115/85 94 Room Air 05/12/22 00:00 91 H Laboratory Results Short CBC 05/12/22 Range/Units 06:03 WBC 8.90 (4.8-10.8) K/ul Hgb 8.9 L (12.0-16.0) g/dl Hct 27.3 L (34.1-44.9) % Plt Count 150 (130-400) K/uL BMP 05/12/22 06:03 Sodium 138 Potassium 3.0 L Chloride 107 Carbon Dioxide 25 BUN 6 Creatinine 0.51 L Glucose 107 H Calcium 7.5 L Liver Function 05/12/22 Range/Units 06:03 Total Bilirubin 0.3 (0.2-1.0) mg/dl AST 11 L (13-39) U/L ALT 10 (7-52) U/L Alkaline Phosphatase 95 (34-104) U/L Albumin 2.2 L (3.4-5.0) gm/dl Medications Administered Current Inpatient Medications Albuterol (Albut/Ipratrop 3mg/0.5mg Neb 3 Ml Vial) 3 ml NEB Q4R PRN; Protocol PRN Reason: Agitation Stop: 06/08/22 18:59 Clonidine HCl (Clonidine Hcl 0.1 Mg Tab) 0.1 mg PO TID [facility] Stop: 06/09/22 13:59 Last Admin: 05/12/22 09:30 Dose: 0.1 mg Folic Acid (Folic Acid 1 Mg Tab) 1 mg PO QAM [facility] Stop: 06/08/22 08:59 Last Admin: 05/12/22 09:30 Dose: 1 mg Heparin Sodium/Dextrose (Heparin Sodium/Dextrose) 25,000 units in 500 mls @ 26 mls/hr IV .[id number] NICOLE; Protocol Stop: 06/07/22 21:14 Last Titration: 05/12/22 07:14 Dose: 1,300 units/hr, 26 mls/hr Promethazine HCl 12.5 mg/ (Sodium Chloride) 50.5 mls @ 202 mls/hr IV Q6H PRN PRN Reason: Nausea And Vomiting Stop: 06/10/22 11:44 Last Infusion: 05/11/22 12:24 Dose: Infused Cefazolin Sodium (Ancef 2000mg) 2,000 mg in 15 mls @ 3.75 mls/min IV Q8H [facility] Stop: 06/22/22 16:29 Last Admin: 05/12/22 09:00 Dose: 3.75 mls/min Lorazepam (Lorazepam 1 Mg Tab) 1 mg PO UD PRN; Protocol PRN Reason: EtOH Withdrawal AWSS Score 6,7 Stop: 06/07/22 22:44 Last Admin: 05/11/22 01:42 Dose: 1 mg Lorazepam (Lorazepam 1 Mg Tab) 2 mg PO UD PRN; Protocol PRN Reason: EtOH Withdrawal AWSS Score 8,9 Stop: 06/07/22 22:44 Last Admin: 05/12/22 09:06 Dose: 2 mg Menthol (Cough Drop (Sugar Free) Carmen 24 Carmen/1 Box) 1 carmen BUCCAL PRN PRN PRN Reason: Sore Throat Stop: 06/08/22 21:35 Metoprolol Tartrate (Metoprolol Tartrate 25 Mg Tab) 12.5 mg PO BID [facility] Stop: 06/09/22 09:44 Last Admin: 05/12/22 09:30 Dose: 12.5 mg Miscellaneous (Remove Nicoderm Patch) 1 each N/A DAILY@0859 [facility] Stop: 06/09/22 08:58 Last Admin: 05/12/22 09:31 Dose: 1 each Nicotine (Nicotine 14 Mg/24 Hr Patch) 14 mg TD QAM [facility] Stop: 06/08/22 15:59 Last Admin: 05/12/22 09:30 Dose: 14 mg Sodium Chloride (Sodium Chloride 0.65% Na Soln 45 Ml (Benson)) 1 sprays NA PRN PRN PRN Reason: Dryness Stop: 06/08/22 18:16 Last Admin: 05/09/22 18:19 Dose: 1 sprays
[2022-05-12] MEDS: HEPARIN SODIUM/DEXTROSE 25,000 UNITS/500 ML BAG IV SCH (14:01)
[2022-05-12] MEDS ORDERED: D5W AND NSS 1,000 ML IV SCH (22:45)
[2022-05-13] MEDS ORDERED: LORazepam 0.5 MG TAB PO STA (01:00)
[2022-05-13] MEDS ORDERED: FAMOTIDINE 20 MG in SYRINGE 3 ML IV ONE (02:45)
[2022-05-13] MEDS: LORazepam 1 MG TAB PO PRN ×4 (05:13→19:32)
[2022-05-13 06:43] LABS: Basophils # (auto) 0.03 K/uL (0-0.2); Basophils % (auto) 0.2 %; Eosinophils # (auto) 0.05 K/uL (0-0.50); Eosinophils % (auto) 0.4 %; Hematocrit (blood only) 32.2 % (34.1-44.9); Hemoglobin 10.5 g/dl (12.0-16.0); Immature Granulocytes # (auto) 0.32 K/uL (0.00-0.02); Immature Granulocytes % (auto) 2.5 %; Lymphocytes % (auto) 13.2 %; Mean Corpuscular Hemoglobin 27.9 pg (25.0-34.0); Mean Corpuscular Hgb Conc 32.6 g/dL (32.0-36.0); Mean Corpuscular Volume 85.4 fL (80.0-100.0); Mean Platelet Volume 9.3 fL (9.4-12.3); Monocytes # (auto) 0.48 K/uL (0.24-0.82); Monocytes % (auto) 3.7 %; Neutrophils # (auto) 10.27 K/uL (1.4-6.5); Nucleated RBC # (auto) 0.02 K/uL (0-0); Nucleated RBC % (auto) 0.2 %; Platelet Count 163 K/uL (130-400); RDW Coefficient of Variation 14.9 % (11.5-14.5); RDW Standard Deviation 45.3 fL (36.4-46.3); Red Blood Count 3.77 M/uL (3.93-5.22); White Blood Count 12.85 K/ul (4.8-10.8)
[2022-05-13 07:04] LABS: Albumin Globulin Ratio 0.7 (0.9-2); Albumin Level 2.6 gm/dl (3.4-5.0); BUN Creatinine Ratio 11.3 (10-20); Bilirubin,Total 0.4 mg/dl (0.2-1.0); Calcium 7.7 mg/dl (8.5-10.1); Creatinine Clr Calc Pharmacy 115.9 ml/min; Est GFR (African American) 139.6 ml/min; Est GFR (Non-African American) 120.4 ml/min; Magnesium 1.9 mg/dl (1.7-2.4); Potassium 2.9 mmol/L (3.5-5.1); Total Protein 6.6 gm/dl (6.0-8.3)
--- NOTE | 2022-05-13 07:28 | CT Scan Report ---
ABDOMEN AND PELVIS CT WITHOUT CONTRAST CT DOSE: 283.27 mGy.cm HISTORY: Acute abdominal pain with diarrhea abdominal pain, diarrhea, distension TECHNIQUE: Multiaxial CT images of the abdomen and pelvis were performed without contrast. A dose lo wering technique was utilized adhering to the principles of ALARA. COMPARISON STUDY: CT abdomen and pelvis 05/08/2022 FINDINGS: Small right greater left pleural effusions with mild loculation on the right. Small pericar dial effusion. Decreased attenuation of the cardiac blood pool suggestive of anemia. Bibasilar nodula r predominant consolidative opacities are noted, several of which demonstrate central cavitation. Pul monary emphysema. No pneumatosis or pneumoperitoneum identified. Hepatosplenomegaly. Limited evaluation of the solid abdominal organs without the use of IV contrast. The previously described splenic infarcts are not well visualized on today's exam. Unremarkable adren al glands, and pancreas. Contracted gallbladder. No hepatic mass identified. 5 mm nonobstructing calculus of the interpolar left kidney. No hydronephrosis or ureteral calculi lauren ntified. Unremarkable appearance of the unenhanced right kidney. Unremarkable urinary bladder, uterus and adnexa. No abdominal aortic aneurysm. Worsening abdominal pelvic ascites with mesenteric edema and anasarca. Nonspecific distal esophageal wall thickening. No bowel obstruction or definite bowel wall thickening identified. Scattered large a nd small bowel air-fluid levels. Nonvisualization of the appendix. No acute fracture. IMPRESSION: 1. Limited exam without the use of contrast. 2. Volume overload manifested by increased size of the pleural and pericardial effusions with worseni ng abdominal pelvic ascites and anasarca. 3. Bibasilar consolidation with septic emboli again noted. 4. Hepatosplenomegaly. The previously described splenic infarcts are not visualized on this noncontra st study. 5. Scattered large and small bowel air-fluid levels. No bowel obstruction identified. 6. Left nephrolithiasis. ACT 112: Negative or not required by law. The above report was generated using voice recognition software. It may contain grammatical, syntax o r spelling errors. Electronically signed by: Giles Boggs M.D. 05/13/2022 7:26 AM
[2022-05-13 07:55] LABS: Partial Thromboplastin Ratio 1.9; Partial Thromboplastin Time 51.2 Seconds (21.0-31.0)
[2022-05-13] MEDS ORDERED: FUROSEMIDE 40 MG/4 ML VIAL IV ONE (08:00)
[2022-05-13] MEDS ORDERED: HYDROmorphone INJ 0.5 MG/0.5 ML SYR IV STA (08:17)
[2022-05-13] MEDS: NICOTINE 14 MG/24 HR PATCH TD SCH (09:34)
[2022-05-13] MEDS: FOLIC ACID 1 MG TAB PO SCH (09:34)
[2022-05-13] MEDS: METOPROLOL TARTRATE 25 MG TAB PO SCH (09:35)
[2022-05-13] MEDS: cloNIDine HCL 0.1 MG TAB PO SCH ×2 (09:38→15:03)
[2022-05-13] MEDS: POTASSIUM CHLORIDE / WTR 10 MEQ/100 ML PLCT IV SCH ×3 (09:39→12:37)
[2022-05-13] MEDS: ceFAZolin 2000MG 2,000 MG/15 ML SYR IV SCH ×2 (10:06→18:13)
[2022-05-13] MEDS: HEPARIN SODIUM/DEXTROSE 25,000 UNITS/500 ML BAG IV SCH (10:28)
--- NOTE | 2022-05-13 11:12 | Hospitalist Progress Note ---
Date of Service May 13, 2022 Assessment & Plan (1) Pneumonia: Plan: Patient was waiting for transfer to [facility] and as bed is available now getting transferred tonight. 1) Severe sepsis: Plan: Secondary to multilobar pneumonia With multisystem organ dysfunction Gram-positive bacteremia with septic pulmonary emboli, infective endocarditis and a splenic infarct Has been on intravenous vancomycin and Zosyn Blood culture is developing gram-positive cocci in clusters and urine culture is pending Continue IVF resuscitation, trend lactate-lactate has been improving Will need ID evaluation Sepsis seems to be likely secondary to infective endocarditis and bacteremia Clinically much better and will continue current IV antibiotic of nafcillin to cover MSSA Developed a generalized erythematous macule likely secondary to penicillin without any other significant symptoms Discussed with circulation worker ID specialist Dr. Mendoza in [place] and the antibiotic were changed to Ancef 2 g every 8 hourly Rash is improved Repeat blood culture will be taken-report pending Has been having withdrawal symptoms IV drugs/alcohol withdrawal Is reasonably controlled with intravenous Ativan as needed Following alcohol withdrawal protocol Remains anxious with occasional agitation and requiring one-to-one sitter Has been getting as needed Ativan for acute anxiety and withdrawal symptoms Severe back pain and abdominal pain Has been complaining of back pain without radiation Has had pain in the past before Will apply heating pad Small dose of intravenous Dilaudid tried Fluid overload CT scan of the abdomen and pelvis showed volume overload with increased size of the pleural and pericardial effusions with worsening abdominal pelvic ascites and anasarca Has cumulative fluid balance of +13,000mls Maintain his IV fluid has been stopped Lasix 40 mg IV given and repeat in the afternoon Potassium supplementation is given (2) Infective endocarditis: Plan: Echo of the heart showed-normal LV size, normal LV wall thickness, mild global hypokinesis of the left ventricle with EF of 45 to 50%, aortic valve is trileaflet, there is a small vegetations or mass on the aortic valve, large vegetation or mass on the mitral valve adherent to the base of the posterior annulus measuring 1.6 cm, there is a very large vegetation or mass on the tricuspid valve measuring 1.9 cm with severe tricuspid regurgitation Has multiple vertebral visitations The case was discussed with the CT surgery in [place] and the patient was accepted for transfer Awaiting bed to be transferred to [facility] Denies any cardiac symptoms Has been getting intravenous nafcillin for endocarditis Awaiting transfer to [facility] at [place]-discussed with the transfer center this morning and likely be transferred sometime today. (3) Bilateral pulmonary embolism: Plan: CTA did not show multiple bilateral pulmonary emboli No saddle embolism Has been on intravenous heparin (4) Pneumonia: Plan: CXR shows multifocal pneumonia and CT confirms it Patient hypoxic on room air at 88%, currently requiring 4 L via nasal cannula. S/p Vanco and Zosyn Clinically much better Has been on intravenous nafcillin -developed rash without any other symptoms The antibiotic were changed to Ancef 2 g every 8 hourly as per ID specialist and then (5) Acute respiratory failure with hypoxia: Plan: Patient hypoxic on room air at 88%, currently requiring 4 L via nasal cannula. Secondary to multilobar pneumonia , pulmonary embolism with bilateral septic pulmonary emboli Saturating normally on room air (6) Anemia: Plan: Hgb 6.4. Platelets stable at 175K. Stool heme-negative in ED Single blast cells noted on differential. ED discussed with hematology --this is likely felt to be due to sepsis. Will trend it differential continue to monitor. Given history of IV drug abuse, concern for possible hemolytic anemia secondary to endocarditis Transfuse 1 unit PRBC Hemoglobin is 9.0 following transfusion Doubt any leukemia Hemoglobin is 10.0 as of 05/10/2022 (7) IV drug user: Plan: Patient reports using fentanyl --last IV usage was about 1 month ago, patient reports she currently smokes fentanyl " all day long". Last use being just prior to arrival. Has been going through withdrawal symptoms with agitation and unstable eating Has been started on intravenous Precedex Appreciate flower stripper input We will get hepatitis serology and HIV testing HIV is nonreactive Hepatitis panel is pending (8) Elevated troponin: Plan: HS trop 69.4 Likely demand ischemia in the setting of sepsis Continue to trend troponin-doubt any ACS (9) Electrolyte abnormality: Plan: Na+ 129, K+ 3.3, Mg +1.4 Replace, follow BMP-electrolytes have been normalized (10) Lower extremity edema: Plan: Etiology unclear at this time Consider BL LE Doppler Echo Also noted to have hypoalbuminemia (11) DVT prophylaxis: Plan: IV heparin Discussed the transfer center in [place] Likely she will have a bed today and will be transferred this afternoon Discussed with the sister (2) Bilateral pulmonary embolism: (3) Infective endocarditis: (4) Acute respiratory failure with hypoxia: (5) Anemia: (6) IV drug user: (7) Elevated troponin: (8) Electrolyte abnormality: (9) Lower extremity edema: Admission and Anticipated Discharge Date Admission Date: May 08, 2022 Subjective 05/09/2022 The patient was seen and examined in ICU She remains sedated on intravenous Precedex Remains hemodynamically stable with blood pressure on the lower side at 91/66 Does not have any acute distress Awaiting to be transferred to [facility] 05/10/2022 The patient was seen and examined in ICU She has been restless since this morning and seems to be getting better with intravenous Ativan No more Precedex drip Denies any significant symptoms except weakness and anxiety No fever and or chills, no nausea no vomiting 05/11/2022 Patient was seen and examined in telemetry unit She remains pleasantly confused, anxious and a little bit agitated Generally weak but denies any other symptom 05/12/2022 The patient was seen and examined in telemetry unit She remains stable with occasional agitation and requiring one-to-one sitter Generally weak but denies any other significant symptoms She has been telling that she is getting better 05/13/2022 The patient was seen and examined in telemetry unit She has been on resting bed with tachycardia and pain in the back and also in the abdomen Remains afebrile and has been requiring 2 L to maintain saturation Has occasional agitation and requiring one-to-one sitter Review of Systems Review of Systems: All systems reviewed and are unremarkable except as noted below Neurologic: Restlessness at rest Physical Exam Physical Exam: Lying in bed with acute anxiety Constitutional: + ill appearing and average body habitus ENMT: external ear and nose normal, oropharynx normal Neck: trachea midline, no thyromegaly Respiratory: no respiratory distress Auscultation: + diminished lung sounds and + crackles (Occasional crackles at the bases) Cardiovascular: Rate/Rhythm: regular rate, regular rhythm and + tachycardic Heart Sounds: normal S1, normal S2 and + murmur (2/6 ESM over precordium) Extremities: + edema (1+ edema bilateral) Gastrointestinal (Abdomen): Inspection/Auscultation: + abdomen distended (Mildly distended) and normal bowel sounds (Decreased) Percussion/Palpation: abdomen soft; abdomen nontender (Mildly tender all over) Musculoskeletal: No acute arthritis in any joint Neurologic: Alert, awake and oriented x3. Very anxious with tremors involving the outstretched hands. Generally weak Lymphatic: no cervical or axillary lymphadenopathy Results & Data Results & Data ([facility]) Vital Signs (Past 12 Hours) Vital Signs Temp Pulse Pulse Pulse Resp BP Pulse Ox 05/13/22 08:00 116 H 05/13/22 07:25 36.7 C 111 H 35 H 130/94 99 05/13/22 06:38 36.8 C 110 H 18 133/93 98 05/13/22 05:47 111 H 28 H 97 05/13/22 04:30 102 H 30 H 134/88 99 05/13/22 00:00 104 H 05/12/22 23:10 36.8 C 101 H 18 120/92 98 O2 Del Method O2 Flow Rate 05/13/22 08:00 05/13/22 07:25 Room Air, Oxymask 2 05/13/22 06:38 Room Air 05/13/22 05:47 Room Air 05/13/22 04:30 Oxymask 2 05/13/22 00:00 05/12/22 23:10 Room Air Laboratory Results Short CBC 05/13/22 Range/Units 06:23 WBC 12.85 H (4.8-10.8) K/ul Hgb 10.5 L (12.0-16.0) g/dl Hct 32.2 L (34.1-44.9) % Plt Count 163 (130-400) K/uL BMP 05/13/22 06:23 Sodium 139 Potassium 2.9 L Chloride 107 Carbon Dioxide 22 BUN 6 Creatinine 0.53 L Glucose 144 H Calcium 7.7 L Liver Function 05/13/22 Range/Units 06:23 Total Bilirubin 0.4 (0.2-1.0) mg/dl AST 11 L (13-39) U/L ALT 8 (7-52) U/L Alkaline Phosphatase 106 H (34-104) U/L Albumin 2.6 L (3.4-5.0) gm/dl Medications Administered Current Inpatient Medications Albuterol (Albut/Ipratrop 3mg/0.5mg Neb 3 Ml Vial) 3 ml NEB Q4R PRN; Protocol PRN Reason: Agitation Stop: 06/08/22 18:59 Last Admin: 05/13/22 05:47 Dose: 3 ml Clonidine HCl (Clonidine Hcl 0.1 Mg Tab) 0.1 mg PO TID [facility] Stop: 06/09/22 13:59 Last Admin: 05/13/22 09:38 Dose: 0.1 mg Folic Acid (Folic Acid 1 Mg Tab) 1 mg PO QAM [facility] Stop: 06/08/22 08:59 Last Admin: 05/13/22 09:34 Dose: 1 mg Heparin Sodium/Dextrose (Heparin Sodium/Dextrose) 25,000 units in 500 mls @ 26 mls/hr IV .[id number] [facility]; Protocol Stop: 06/07/22 21:14 Last Admin: 05/13/22 10:28 Dose: 1,300 units/hr, 26 mls/hr Promethazine HCl 12.5 mg/ (Sodium Chloride) 50.5 mls @ 202 mls/hr IV Q6H PRN PRN Reason: Nausea And Vomiting Stop: 06/10/22 11:44 Last Infusion: 05/11/22 12:24 Dose: Infused Cefazolin Sodium (Ancef 2000mg) 2,000 mg in 15 mls @ 3.75 mls/min IV Q8H [facility] Stop: 06/22/22 16:29 Last Admin: 05/13/22 10:06 Dose: 3.75 mls/min Lorazepam (Lorazepam 1 Mg Tab) 1 mg PO UD PRN; Protocol PRN Reason: EtOH Withdrawal AWSS Score 6,7 Stop: 06/07/22 22:44 Last Admin: 05/13/22 06:45 Dose: 1 mg Lorazepam (Lorazepam 1 Mg Tab) 2 mg PO UD PRN; Protocol PRN Reason: EtOH Withdrawal AWSS Score 8,9 Stop: 06/07/22 22:44 Last Admin: 05/13/22 05:13 Dose: 2 mg Menthol (Cough Drop (Sugar Free) Carmen 24 Carmen/1 Box) 1 carmen BUCCAL PRN PRN PRN Reason: Sore Throat Stop: 06/08/22 21:35 Metoprolol Tartrate (Metoprolol Tartrate 25 Mg Tab) 12.5 mg PO BID [facility] Stop: 06/09/22 09:44 Last Admin: 05/13/22 09:35 Dose: 12.5 mg Miscellaneous (Remove Nicoderm Patch) 1 each N/A DAILY@0859 [facility] Stop: 06/09/22 08:58 Last Admin: 05/13/22 09:39 Dose: 1 each Nicotine (Nicotine 14 Mg/24 Hr Patch) 14 mg TD QAM [facility] Stop: 06/08/22 15:59 Last Admin: 05/13/22 09:34 Dose: 14 mg Sodium Chloride (Sodium Chloride 0.65% Na Soln 45 Ml ([place])) 1 sprays NA PRN PRN PRN Reason: Dryness Stop: 06/08/22 18:16 Last Admin: 05/09/22 18:19 Dose: 1 sprays
[2022-05-13] MEDS: HYDROmorphone INJ 0.5 MG/0.5 ML SYR IV PRN ×2 (11:43→18:32)
[2022-05-13 12:22] LABS: MDA negative; MDEA negative; MDMA (Ecstasy) Urine, Confirm negative
--- NOTE | 2022-05-14 06:30 | Electrocardiogram Report ---
Test Reason : Blood Pressure : / mmHG Vent. Rate : 108 BPM Atrial Rate : 108 BPM P-R Int : 146 ms QRS Dur : 100 ms QT Int : 350 ms P-R-T Axes : 069 009 060 degrees QTc Int : 469 ms Poor data quality, interpretation may be adversely affected Sinus tachycardia Otherwise normal ECG When compared with ECG of 08-MAY-2022 15:42, No significant change was found Confirmed by Azar Lovell ([id number]) on 05/14/2022 6:30:44 AM Referred By: REFERRED SELF Confirmed By:Azar Lovell
--- NOTE | 2022-05-14 07:37 | Discharge Summary ---
Date of Service May 13, 2022 Admission HPI Per Admitting Provider 36-year-old female with PMH depression, anxiety, drug abuse (fentanyl via IV and smoking), and other problems listed below who presents to the ED for evaluation of generalized weakness and body aches. Patient reports that she has been feeling sick for about the past 1 month. Patient was seen at [facility] and diagnosed with pneumonia and UTI. Patient was discharged on prednisone and levofloxacin. Patient reports completing both courses of the medications. Patient reports no improvement in her symptoms. She reports feeling extremely weak. She also notes body aches and feeling feverish however did not check her temperature. She reports a productive cough. She states that she has bilateral lower rib pain with taking a deep breath. Patient is noted to have bilateral lower extremity edema on exam. She states this has been present for about the past 1 week. No chest pain or palpitations. Denies lightheadedness, dizziness, diaphoresis, syncopal events. No abdominal pain, nausea, vomiting, diarrhea. Denies urinary symptoms. Patient states she last used IV fentanyl about 1 month ago however smokes fentanyl " all day long", last using this morning prior to calling EMS. In the ED, patient was found febrile at 39.6, tachycardic, elevated lactate. Labs also show anemia with Hgb 6.4. Differential shows a single blast cell. There are several electrolyte abnormalities noted with Na+ 129, K+ 3.3, Mg +1.3, CA +7.8. HS troponin 69.4. Admission Exam Per Admitting Provider Constitutional: WD/WN, vitals as above + ill appearing and + disheveled; no acute distress Eyes: PERRL, conjunctivae normal, anicteric sclerae ENMT: external ear and nose normal, oropharynx normal Mouth: + poor dentition Respiratory: normal respiratory effort; no respiratory distress Auscultation: + rhonchi (Bilateral bases) Cardiovascular: Rate/Rhythm: regular rhythm and + tachycardic Vessels: normal peripheral pulses Extremities: + edema (+2-3 edema BLE) Gastrointestinal (Abdomen): normal bowel sounds, soft, nontender, no hepatosplenomegaly Musculoskeletal: no cyanosis or clubbing, extremities motor strength 5/5 Skin: no rashes, warm and dry Neurologic: PERRL, EOMI, accommodation nl, no face palsy, no dysarthria Psychiatric: Orientation: alert and oriented x 3 Affect: + anxious affect and + tearful affect Principal Diagnosis Infective endocarditis, septic pulmonary emboli, pneumonia Discharge Exam Lying in bed with acute anxiety Constitutional + ill appearing and average body habitus ENMT external ear and nose normal, oropharynx normal Neck trachea midline, no thyromegaly Respiratory no respiratory distress Auscultation: + diminished lung sounds and + crackles (Occasional crackles at the bases) Cardiovascular Rate/Rhythm: regular rate, regular rhythm and + tachycardic Heart Sounds: normal S1, normal S2 and + murmur (2/6 ESM over precordium) Extremities: + edema (1+ edema bilateral) Gastrointestinal (Abdomen) Inspection/Auscultation: + abdomen distended (Mildly distended) and normal bowel sounds (Decreased) Percussion/Palpation: abdomen soft; abdomen nontender (Mildly tender all over) Lymphatic no cervical or axillary lymphadenopathy Discharge Data Allergies Allergy/AdvReac Type Severity Reaction Status Date / Time No Known Allergies Allergy Unknown Verified 05/08/22 16:58 Consultations 05/08/22 17:05 ED Decision to Admit Stat 05/08/22 20:54 Consult Black [employer] White Printer Operator Routine 05/09/22 18:39 Burn CD for patient Routine Ordered Studies 05/08/22 17:16 CT angio chest PE protocol Stat 05/08/22 17:19 CT Abd and Pelvis [CT abd pelvis IV con only] Stat 05/12/22 22:58 CT Abd and Pelvis [CT abd pelvis wo con] Urgent Hospital Course (1) Pneumonia: Patient was waiting for transfer to [facility] and as bed is available now getting transferred tonight. 1) Severe sepsis: Plan: Secondary to multilobar pneumonia With multisystem organ dysfunction Gram-positive bacteremia with septic pulmonary emboli, infective endocarditis and a splenic infarct Has been on intravenous vancomycin and Zosyn Blood culture is developing gram-positive cocci in clusters and urine culture is pending Continue IVF resuscitation, trend lactate-lactate has been improving Will need ID evaluation Sepsis seems to be likely secondary to infective endocarditis and bacteremia Clinically much better and will continue current IV antibiotic of nafcillin to cover MSSA Developed a generalized erythematous macule likely secondary to penicillin without any other significant symptoms Discussed with recreation facility attendant ID specialist Dr. Mendoza in [place] and the antibiotic were changed to Ancef 2 g every 8 hourly Rash is improved Repeat blood culture will be taken-report pending Has been having withdrawal symptoms IV drugs/alcohol withdrawal Is reasonably controlled with intravenous Ativan as needed Following alcohol withdrawal protocol Remains anxious with occasional agitation and requiring one-to-one sitter Has been getting as needed Ativan for acute anxiety and withdrawal symptoms Severe back pain and abdominal pain Has been complaining of back pain without radiation Has had pain in the past before Will apply heating pad Small dose of intravenous Dilaudid tried Fluid overload CT scan of the abdomen and pelvis showed volume overload with increased size of the pleural and pericardial effusions with worsening abdominal pelvic ascites and anasarca Has cumulative fluid balance of +13,000mls Maintain his IV fluid has been stopped Lasix 40 mg IV given and repeat in the afternoon Potassium supplementation is given (2) Infective endocarditis: Plan: Echo of the heart showed-normal LV size, normal LV wall thickness, mild global hypokinesis of the left ventricle with EF of 45 to 50%, aortic valve is trileaflet, there is a small vegetations or mass on the aortic valve, large vegetation or mass on the mitral valve adherent to the base of the posterior annulus measuring 1.6 cm, there is a very large vegetation or mass on the tricuspid valve measuring 1.9 cm with severe tricuspid regurgitation Has multiple vertebral visitations The case was discussed with the CT surgery in [place] and the patient was accepted for transfer Awaiting bed to be transferred to [facility] Denies any cardiac symptoms Has been getting intravenous nafcillin for endocarditis Awaiting transfer to [facility] at [place]-discussed with the transfer center this morning and likely be transferred sometime today. (3) Bilateral pulmonary embolism: Plan: CTA did not show multiple bilateral pulmonary emboli No saddle embolism Has been on intravenous heparin (4) Pneumonia: Plan: CXR shows multifocal pneumonia and CT confirms it Patient hypoxic on room air at 88%, currently requiring 4 L via nasal cannula. S/p Vanco and Zosyn Clinically much better Has been on intravenous nafcillin -developed rash without any other symptoms The antibiotic were changed to Ancef 2 g every 8 hourly as per ID specialist and then (5) Acute respiratory failure with hypoxia: Plan: Patient hypoxic on room air at 88%, currently requiring 4 L via nasal cannula. Secondary to multilobar pneumonia , pulmonary embolism with bilateral septic pulmonary emboli Saturating normally on room air (6) Anemia: Plan: Hgb 6.4. Platelets stable at 175K. Stool heme-negative in ED Single blast cells noted on differential. ED discussed with hematology --this is likely felt to be due to sepsis. Will trend it differential continue to monitor. Given history of IV drug abuse, concern for possible hemolytic anemia secondary to endocarditis Transfuse 1 unit PRBC Hemoglobin is 9.0 following transfusion Doubt any leukemia Hemoglobin is 10.0 as of 05/10/2022 (7) IV drug user: Plan: Patient reports using fentanyl --last IV usage was about 1 month ago, patient reports she currently smokes fentanyl " all day long". Last use being just prior to arrival. Has been going through withdrawal symptoms with agitation and unstable eating Has been started on intravenous Precedex Appreciate computer networking instructor adjunct input We will get hepatitis serology and HIV testing HIV is nonreactive Hepatitis panel is pending (8) Elevated troponin: Plan: HS trop 69.4 Likely demand ischemia in the setting of sepsis Continue to trend troponin-doubt any ACS (9) Electrolyte abnormality: Plan: Na+ 129, K+ 3.3, Mg +1.4 Replace, follow BMP-electrolytes have been normalized (10) Lower extremity edema: Plan: Etiology unclear at this time Consider BL LE Doppler Echo Also noted to have hypoalbuminemia (11) DVT prophylaxis: Plan: IV heparin Discussed the transfer center in [place] Likely she will have a bed today and will be transferred this afternoon Discussed with the sister (2) Bilateral pulmonary embolism: (3) Infective endocarditis: (4) Acute respiratory failure with hypoxia: (5) Anemia: (6) IV drug user: (7) Elevated troponin: (8) Electrolyte abnormality: (9) Lower extremity edema: Total Time Total Time Spent Total Time Spent (In Minutes): 35 mnutes Discharge Plan Discharge Items Patient Disposition: Transfer Acute Care Hospital Reason For Visit: SEPSIS, PNEUMONIA Discharge Diagnosis: Infective endocarditis, septic pulmonary emboli, pneumonia Condition on Discharge: Fair Activity: Resume your previous activity Non-emergency contact: Primary Care Provider Call non-emergency contact if: you have any medication questions and your symptoms worsen Follow-up/Referrals: Lenny Cleary MD [Primary Care Provider] - Diet: Regular Addtl Attending Provider Instructions: She was transferred to [facility] for continued management All of her inpatient medications were continued on transfer as below: Current Inpatient Medications Current Inpatient Medications Albuterol (Albut/Ipratrop 3mg/0.5mg Neb 3 Ml Vial) 3 ml NEB Q4R PRN; Protocol PRN Reason: Agitation Stop: 06/08/22 18:59 Last Admin: 05/13/22 05:47 Dose: 3 ml Clonidine HCl (Clonidine Hcl 0.1 Mg Tab) 0.1 mg PO TID [facility] Stop: 06/09/22 13:59 Last Admin: 05/13/22 09:38 Dose: 0.1 mg Folic Acid (Folic Acid 1 Mg Tab) 1 mg PO QAM [facility] Stop: 06/08/22 08:59 Last Admin: 05/13/22 09:34 Dose: 1 mg Heparin Sodium/Dextrose (Heparin Sodium/Dextrose) 25,000 units in 500 mls @ 26 mls/hr IV .[id number] [facility]; Protocol Stop: 06/07/22 21:14 Last Admin: 05/13/22 10:28 Dose: 1,300 units/hr, 26 mls/hr Promethazine HCl 12.5 mg/ (Sodium Chloride) 50.5 mls @ 202 mls/hr IV Q6H PRN PRN Reason: Nausea And Vomiting Stop: 06/10/22 11:44 Last Infusion: 05/11/22 12:24 Dose: Infused Cefazolin Sodium (Ancef 2000mg) 2,000 mg in 15 mls @ 3.75 mls/min IV Q8H [facility] Stop: 06/22/22 16:29 Last Admin: 05/13/22 10:06 Dose: 3.75 mls/min Lorazepam (Lorazepam 1 Mg Tab) 1 mg PO UD PRN; Protocol PRN Reason: EtOH Withdrawal AWSS Score 6,7 Stop: 06/07/22 22:44 Last Admin: 05/13/22 06:45 Dose: 1 mg Lorazepam (Lorazepam 1 Mg Tab) 2 mg PO UD PRN; Protocol PRN Reason: EtOH Withdrawal AWSS Score 8,9 Stop: 06/07/22 22:44 Last Admin: 05/13/22 05:13 Dose: 2 mg Menthol (Cough Drop (Sugar Free) Carmen 24 Carmen/1 Box) 1 carmen BUCCAL PRN PRN PRN Reason: Sore Throat Stop: 06/08/22 21:35 Metoprolol Tartrate (Metoprolol Tartrate 25 Mg Tab) 12.5 mg PO BID [facility] Stop: 06/09/22 09:44 Last Admin: 05/13/22 09:35 Dose: 12.5 mg Miscellaneous (Remove Nicoderm Patch) 1 each N/A DAILY@0859 [facility] Stop: 06/09/22 08:58 Last Admin: 05/13/22 09:39 Dose: 1 each Nicotine (Nicotine 14 Mg/24 Hr Patch) 14 mg TD QAM [facility] Stop: 06/08/22 15:59 Last Admin: 05/13/22 09:34 Dose: 14 mg Sodium Chloride (Sodium Chloride 0.65% Na Soln 45 Ml (Gray)) 1 sprays NA PRN PRN PRN Reason: Dryness Stop: 06/08/22 18:16 Last Admin: 05/09/22 18:19 Dose: 1 sprays Pending Studies at Discharge: No Stand-Alone Forms: [facility] Skilled Items Patient informed of condition?: Yes DNR: No Discharge Level of Care: Other Communicable Disease: No Discharge Prognosis: Stable Lines: Peripheral IV Urinary Catheter: No Medications and DC Order Prescriptions: No Action No Known Home Medications Discharge Orders: Discharge Order (Routine); Ordered 05/09/22 Ordered By: Luis Daniel Childs Admission Data Admit Date/Time: 05/08/22 17:39 Attending Provider: Luis Daniel Childs Admit Provider: Amy Osuna Primary Care Provider: Lenny Cleary Other Providers: Amy Osuna ; Ronald Baum Other Interventions: Discharge Summary Assessment (RN) Last Done: 05/13/22 19:50
[2022-05-14 15:11] LABS: HBSAG NON-REACTIVE (NON-REACTIVE); Hepatitis A Antibody IgM NON-REACTIVE (NON-REACTIVE); Hepatitis B Core Antibody IgM NON-REACTIVE (NON-REACTIVE)
[2022-05-15 08:35] LABS: Hepatitis C Vira RNA (Log) PCR <1.18 NOT DETECTED Log IU/mL (NOT DETECTED); Hepatitis C Viral RNA by PCR <15 NOT DETECTED IU/mL (NOT DETECTED)
[2022-05-15 08:38] LABS: Hepatitis C Vira RNA (Log) PCR <1.18 NOT DETECTED Log IU/mL (NOT DETECTED); Hepatitis C Viral RNA by PCR <15 NOT DETECTED IU/mL (NOT DETECTED)
== END 2022-05-13 20:02 | disposition short-term general hospital (02) | DRG 871 ==
LOC: ED 14:57 → SUATTDRO 17:39 → 1E 17:39 → 2E 05-10 22:14

== ENCOUNTER 2022-08-08 15:47 | Inpatient (IN) ==
--- NOTE | 2022-08-08 16:14 | Emergency Department Note ---
Impression & Plan Acute opioid withdrawal, Elevated procalcitonin ED Provider Note HISTORY OF PRESENT ILLNESS: Patient is a 37-year-old female presenting with fentanyl withdrawal. She reports that she started using again in June after being discharged from the hospital where she had surgery after endocarditis treatment. She states that her last use was yesterday. She is unable to quantify the amount of fentanyl she uses in the day. Reports generalized body aches, nausea and vomiting since yesterday. Reports that she called 911 today because of persistent pain. ROS: as above PHYSICAL EXAM: Constitutional: Patient appears in no acute distress. HENT: Head: Normocephalic and atraumatic. Eyes: EOMI, PERRL Mouth/Throat: Mucous membranes moist. Neck: Trachea midline. Neck supple. Cardiovascular: RRR, No murmurs, rubs or gallops. Intact distal pulses. Pulmonary/Chest: No respiratory distress. Breath sounds clear and equal bilaterally. No wheezes or rales. No chest wall tenderness to palpation. Abdominal: BS +. Abdomen soft, no tenderness, rebound or guarding. Back: No midline spinal tenderness, no paraspinal tenderness, no CVA tenderness. Musculoskeletal: No edema, tenderness or deformity noted. Skin: Warm and dry. No rash, erythema, pallor or cyanosis Psychiatric: Appropriate mood and affect for situation. Neurological: Alert and keenly responsive. CN II-XII grossly intact, moving all extremities equally and fully. MDM: - Vitals signs showed tachycardia. - History obtained via patient. Patient presents with reported fentanyl withdrawal. Patient reports she has been using fentanyl daily for the last 2 months. She was admitted in June 2022 for endocarditis and MSSA bacteremia. She was discharged from the hospital in mid June and states she has been using fentanyl since. She reports her last use was yesterday. She describes generalized pain, nausea and vomiting she called 911 because her withdrawal symptoms were "just too much." - Chronic conditions affecting care: IV drug use; prior history of endocarditis - Differential diagnoses include, but are not limited to: electrolyte abnormality; intoxication (alcohol, opiate) ; withdrawal; UTI; pneumonia; trauma - Order placed for continuous cardiac monitoring. At this time, monitor showed rate of 100 bpm with normal sinus rhythm, per my interpretation. - External medical records reviewed. [facility] documentation was reviewed. 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 She was admitted to [facility] from 05/13/2022 to 06/02/2022 and undergone mitral and tricuspid valve replacements. She also underwent a pericardiocentesis and was discharged back to her rehab facility. - In route to the hospital, patient was given 50 mg of IV Toradol and 4 mg of IV Zofran with EMS - EKG reviewed by myself showed normal sinus rhythm. Rate 82 bpm. Normal intervals. QTc 469. Patient does have an incomplete right bundle branch block which was present on previous EKGs - Sepsis protocol was initiated, given patient's prior history of endocarditis and bacteremia. - Laboratory workup interpreted by myself showed normal WBC; stable electrolytes; normal troponin; elevated procalcitonin (0.79) - COVID negative - CXR showed a possible trace left pleural effusion. - Patient was given 0.1 mg PO clonidine initially for symptoms. However, she continued to complain of generalized pain, and persistent symptoms. She was given IV droperidol with improvement in symptoms. - Discussion was had with licensed master social worker about patient's case and need for admission. - Hospitalist, Dr. Laureano, consulted for admission. - [facility] for further evaluation and management. ASSESSMENT AND PLAN: Diagnosis: opioid withdrawal; elevated procalcitonin Plan: admit Past Med/Surg History Medical History Anxiety Depression Drug abuse Fentanyl -IV and smoking IV drug user Surgical History No significant past surgical history Family History (Updated 05/08/22 @ 19:51 by BRETT Vázquez) Aunt Cancer Social History Smoking Status: Current every day smoker Tobacco Type: Cigarettes Second Hand Exposure: No; Hx Alcohol Use: No Hx Substance Use: Yes (narcotics) Non-Prescribed Medications: Inhalents and IV Drugs Non-Prescribed Medications Comment: Fentanyl Last Used Substance: Just Prior to Arrival Last Used Substance Other:: Pt stated that she smoked Fentanyl at noon prior to calling EMS Preferred Language: Czech Communication Ability: Effective Child Adolescent Care Required: No Beliefs That Will Affect Care: None Current Living Situation: Alone Feels Safe at Home: Yes Assistive Devices: None Allergies Allergies Allergy/AdvReac Type Severity Reaction Status Date / Time No Known Allergies Allergy Unknown Verified 08/08/22 20:34 Home Meds Home Medications Medication Instructions Recorded Confirmed amoxicillin 875 mg-potassium 1 tab PO AMPM 08/08/22 08/08/22 clavulanate 125 mg tablet aspirin 81 mg tablet,delayed 81 mg PO QAM 08/08/22 08/08/22 release cyanocobalamin (vitamin B-12) 1,000 mcg PO DAILY 08/08/22 08/08/22 1,000 mcg tablet escitalopram oxalate 20 mg tablet 20 mg PO DAILY 08/08/22 08/08/22 folic acid 1 mg tablet 1 mg PO QAM 08/08/22 08/08/22 gabapentin 300 mg capsule 300 mg PO BID 08/08/22 08/08/22 metoprolol tartrate 25 mg tablet 25 mg PO .AMHS 08/08/22 08/08/22 naloxone 4 mg/actuation nasal spray 1 spray intranasal DAILY PRN 08/08/22 08/08/22 Opioid Overdose nicotine 14 mg/24 hr daily 1 patch transdermal DAILY 08/08/22 08/08/22 transdermal patch ondansetron HCl 4 mg tablet 4 mg PO Q8H PRN Nausea 08/08/22 08/08/22 Results & Data (ED) Vital Signs Vital Signs - 24 hr 08/08/22 15:54 08/08/22 15:53 08/08/22 15:53 Temperature Source Oral Oral Pulse Rate Pulse Rate [Apical] Respiratory Rate Respiratory Depth Blood Pressure [Left Arm] Blood Pressure Mean [Left Arm] Pulse Oximetry Oxygen Delivery Method Room Air Sepsis Recent Fever Within 48 Hours Yes Sepsis New/Unexplained Change in Mental Status No Sepsis Action Taken by Nursing No Action Required 08/08/22 16:49 08/08/22 22:27 Temperature Source Pulse Rate 115 H Pulse Rate [Apical] 80 Respiratory Rate 18 16 Respiratory Depth Normal Blood Pressure [Left Arm] 149/95 H Blood Pressure Mean [Left Arm] 113 Pulse Oximetry 98 95 Oxygen Delivery Method Room Air Room Air Sepsis Recent Fever Within 48 Hours Sepsis New/Unexplained Change in Mental Status Sepsis Action Taken by Nursing Laboratory Data 08/08/22 16:30 08/08/22 16:30 Lab Results 08/08/22 08/08/22 08/08/22 Range/Units 16:30 16:30 16:30 WBC 9.96 (4.8-10.8) K/ul RBC 4.53 (3.93-5.22) M/uL Hgb 12.6 (12.0-16.0) g/dl Hct 37.7 (34.1-44.9) % MCV 83.2 (80.0-100.0) fL MCH 27.8 (25.0-34.0) pg MCHC 33.4 (32.0-36.0) g/dL RDW Std Deviation 40.9 (36.4-46.3) fL RDW Coeff of Rafiq 13.4 (11.5-14.5) % Plt Count 238 (130-400) K/uL MPV 9.1 L (9.4-12.3) fL Immature Gran % (Auto) 0.5 % Neut % (Auto) 84.8 % Lymph % (Auto) 10.5 % Lawrence % (Auto) 3.6 % Eos % (Auto) 0.3 % Baso % (Auto) 0.3 % Neut # (Auto) 8.44 H (1.4-6.5) K/uL Lymph # (Auto) 1.05 L (1.2-3.4) K/uL Lawrence # (Auto) 0.36 (0.24-0.82) K/uL Eos # (Auto) 0.03 (0-0.50) K/uL Baso # (Auto) 0.03 (0-0.2) K/uL Immature Gran # (Auto) 0.05 H (0.00-0.02) K/uL Sodium 138 (136-145) mmol/L Potassium 4.2 (3.5-5.1) mmol/L Chloride 107 (98-107) mmol/L Carbon Dioxide 24 (21-32) mmol/L Anion Gap 7 (3-11) BUN 16 (6-23) mg/dl Creatinine 0.59 L (0.6-1.2) mg/dl Est Cr Clr Drug Dosing 101.2 ml/min Est GFR ( Amer) 133.8 ml/min Est GFR (Non-Af Amer) 115.5 ml/min BUN/Creatinine Ratio 27.1 H (10-20) Glucose 100 H (70-99(Fasting)) mg/dl Calcium 8.9 (8.5-10.1) mg/dl Magnesium 1.8 (1.7-2.4) mg/dl Total Bilirubin 0.6 (0.2-1.0) mg/dl Direct Bilirubin 0.1 (0-0.2) mg/dl AST 12 L (13-39) U/L ALT 10 (7-52) U/L Alkaline Phosphatase 107 H (34-104) U/L Troponin I High Sens 6.5 (0-14) pg/ml Total Protein 6.5 (6.0-8.3) gm/dl Albumin 3.6 (3.4-5.0) gm/dl Procalcitonin 0.79 H (0-0.5) ng/ml SARS-CoV-2, RNA, NAAT (NEGATIVE) 08/08/22 Range/Units Unknown WBC (4.8-10.8) K/ul RBC (3.93-5.22) M/uL Hgb (12.0-16.0) g/dl Hct (34.1-44.9) % MCV (80.0-100.0) fL MCH (25.0-34.0) pg MCHC (32.0-36.0) g/dL RDW Std Deviation (36.4-46.3) fL RDW Coeff of Rafiq (11.5-14.5) % Plt Count (130-400) K/uL MPV (9.4-12.3) fL Immature Gran % (Auto) % Neut % (Auto) % Lymph % (Auto) % Lawrence % (Auto) % Eos % (Auto) % Baso % (Auto) % Neut # (Auto) (1.4-6.5) K/uL Lymph # (Auto) (1.2-3.4) K/uL Lawrence # (Auto) (0.24-0.82) K/uL Eos # (Auto) (0-0.50) K/uL Baso # (Auto) (0-0.2) K/uL Immature Gran # (Auto) (0.00-0.02) K/uL Sodium (136-145) mmol/L Potassium (3.5-5.1) mmol/L Chloride (98-107) mmol/L Carbon Dioxide (21-32) mmol/L Anion Gap (3-11) BUN (6-23) mg/dl Creatinine (0.6-1.2) mg/dl Est Cr Clr Drug Dosing ml/min Est GFR ( Amer) ml/min Est GFR (Non-Af Amer) ml/min BUN/Creatinine Ratio (10-20) Glucose (70-99(Fasting)) mg/dl Calcium (8.5-10.1) mg/dl Magnesium (1.7-2.4) mg/dl Total Bilirubin (0.2-1.0) mg/dl Direct Bilirubin (0-0.2) mg/dl AST (13-39) U/L ALT (7-52) U/L Alkaline Phosphatase (34-104) U/L Troponin I High Sens (0-14) pg/ml Total Protein (6.0-8.3) gm/dl Albumin (3.4-5.0) gm/dl Procalcitonin (0-0.5) ng/ml SARS-CoV-2, RNA, NAAT NEGATIVE (NEGATIVE) Administered Medications Discontinued Medications Clonidine HCl (Clonidine Hcl 0.1 Mg Tab) 0.1 mg PO NOW ONE Stop: 08/08/22 16:31 Last Admin: 08/08/22 16:46 Dose: 0.1 mg Documented By: TNB Droperidol (Droperidol 5 Mg/2 Ml Vial) 1.25 mg IV ONE STA Stop: 08/08/22 17:18 Last Admin: 08/08/22 17:20 Dose: 1.25 mg Documented By: TNB Sodium Chloride (Nss 1000ml) 1,000 mls @ 999 mls/hr IV .Q1H1M NICOLE Stop: 08/08/22 17:15 Last Infusion: 08/08/22 17:40 Dose: 0 mls/hr Documented By: Admin: 08/08/22 16:46 Dose: 999 mls/hr Documented By: TNB Lorazepam (Lorazepam 2 Mg/1 Ml Vial) 0.5 mg IV NOW STA Stop: 08/08/22 21:23 Last Admin: 08/08/22 22:24 Dose: 0.5 mg Documented By: TNB Imaging Data Radiologist's Impression: Chest X-Ray 08/08/22 16:12 XR chest 1V portable CLINICAL HISTORY: Sepsis. COMPARISON STUDY: Chest radiograph and chest CT May 08, 2022. FINDINGS: Interval median sternotomy is noted. No pneumothorax is present. Trace left pleural effusion is suspected. There is no right pleural effusion. Cardiac size is normal. A few irregular densities within the lungs are noted, greater within the left lung. Airspace opacities have markedly improved since prior exam of May 08, 2022. No evidence for pulmonary edema. IMPRESSION: 1. Significant improvement in multifocal airspace opacities since chest CT of May 08, 2022. Mild residual opacities favor scarring or resolving pneumonia. Continued radiographic follow-up to ensure complete resolution is recommended. 2. Suspected trace left pleural effusion. ACT 112: Negative or not required by law. Electronically signed by: Lazaro Askew M.D. 08/08/2022 4:25 PM Discharge Plan Visit Data Chief Complaint: Detox Request Stated Complaint: FENTANYL WITHDRAWL/WEAKNESS/NAUSEA/PAIN ED Provider: Kathya Jones Discharge Problem: Acute opioid withdrawal, Elevated procalcitonin Patient Disposition: Admitted As Inpatient Forms Stand Alone Forms: [facility], Suicide Prevention Resources Prescriptions Prescriptions: No Action gabapentin 300 mg capsule 300 mg PO BID nicotine 14 mg/24 hr patch 24 hour 1 patch transdermal DAILY ondansetron HCl 4 mg tablet 4 mg PO Q8H PRN (Reason: Nausea) folic acid 1 mg tablet 1 mg PO QAM metoprolol tartrate 25 mg tablet 25 mg PO .AMHS cyanocobalamin (vitamin B-12) 1,000 mcg tablet 1,000 mcg PO DAILY aspirin [Aspir-Low] 81 mg Tablet,Delayed Release (Dr/Ec) 81 mg PO QAM escitalopram oxalate 20 mg tablet 20 mg PO DAILY amoxicillin-pot clavulanate 875-125 mg tablet 1 tab PO AMPM Rx Instructions: BEGIN 06/30/22 X 20 DAYS naloxone 4 mg/actuation spray,non-aerosol 1 spray INTRANASAL DAILY PRN (Reason: Opioid Overdose) Referrals Referrals: Lenny Cleary MD [Primary Care Provider] -
[2022-08-08] MEDS ORDERED: SODIUM CHLORIDE 0.9% 1000ML 1,000 ML IV SCH (16:15)
--- NOTE | 2022-08-08 16:26 | XRay Report ---
XR chest 1V portable CLINICAL HISTORY: Sepsis. COMPARISON STUDY: Chest radiograph and chest CT May 08, 2022. FINDINGS: Interval median sternotomy is noted. No pneumothorax is present. Trace left pleural effusio n is suspected. There is no right pleural effusion. Cardiac size is normal. A few irregular densities within the lungs are noted, greater within the left lung. Airspace opacities have markedly improved since prior exam of May 08, 2022. No evidence for pulmonary edema. IMPRESSION: 1. Significant improvement in multifocal airspace opacities since chest CT of May 08, 2022. Mild residual opacities favor scarring or resolving pneumonia. Continued radiographic follow-up to ensure complete resolution is recommended. 2. Suspected trace left pleural effusion. ACT 112: Negative or not required by law. Electronically signed by: Lazaro Askew M.D. 08/08/2022 4:25 PM
[2022-08-08] MEDS ORDERED: cloNIDine HCL 0.1 MG TAB PO ONE (16:30)
[2022-08-08] MEDS ORDERED: DROPERIDOL 5 MG/2 ML VIAL IV STA (17:17)
[2022-08-08 17:18] LABS: Basophils # (auto) 0.03 K/uL (0-0.2); Basophils % (auto) 0.3 %; Eosinophils # (auto) 0.03 K/uL (0-0.50); Eosinophils % (auto) 0.3 %; Hematocrit (blood only) 37.7 % (34.1-44.9); Hemoglobin 12.6 g/dl (12.0-16.0); Immature Granulocytes # (auto) 0.05 K/uL (0.00-0.02); Immature Granulocytes % (auto) 0.5 %; Lymphocytes # (auto) 1.05 K/uL (1.2-3.4); Lymphocytes % (auto) 10.5 %; Mean Corpuscular Hemoglobin 27.8 pg (25.0-34.0); Mean Corpuscular Hgb Conc 33.4 g/dL (32.0-36.0); Mean Corpuscular Volume 83.2 fL (80.0-100.0); Mean Platelet Volume 9.1 fL (9.4-12.3); Monocytes # (auto) 0.36 K/uL (0.24-0.82); Monocytes % (auto) 3.6 %; Neutrophils # (auto) 8.44 K/uL (1.4-6.5); Neutrophils % (auto) 84.8 %; Platelet Count 238 K/uL (130-400); RDW Coefficient of Variation 13.4 % (11.5-14.5); RDW Standard Deviation 40.9 fL (36.4-46.3); Red Blood Count 4.53 M/uL (3.93-5.22); White Blood Count 9.96 K/ul (4.8-10.8)
[2022-08-08 17:29] LABS: Albumin Level 3.6 gm/dl (3.4-5.0); BUN Creatinine Ratio 27.1 (10-20); Bilirubin Direct 0.1 mg/dl (0-0.2); Bilirubin,Total 0.6 mg/dl (0.2-1.0); Calcium 8.9 mg/dl (8.5-10.1); Creatinine Clr Calc Pharmacy 101.2 ml/min; Est GFR (African American) 133.8 ml/min; Est GFR (Non-African American) 115.5 ml/min; Magnesium 1.8 mg/dl (1.7-2.4); Potassium 4.2 mmol/L (3.5-5.1); Total Protein 6.5 gm/dl (6.0-8.3)
[2022-08-08 17:35] LABS: Troponin I High Sensitivity 6.5 pg/ml (0-14)
[2022-08-08] MEDS ORDERED: LORazepam 2 MG/1 ML VIAL IV STA (21:22)
[2022-08-09] MEDS ORDERED: NALOXONE NASAL SPRAY 4 MG ER HOMEPACK PRN (00:31)
[2022-08-09] MEDS ORDERED: NITROGLYCERIN SL 0.4 MG/TAB TAB SL PRN (00:31)
[2022-08-09] MEDS ORDERED: cloNIDine HCL 0.1 MG TAB PO PRN ×2 (00:31→16:04)
[2022-08-09] MEDS ORDERED: LOPERAMIDE HCL 2 MG CAP PO PRN (00:31)
[2022-08-09] MEDS: GABAPENTIN 300 MG CAP PO SCH ×3 (01:16→19:25)
[2022-08-09] MEDS: cloNIDine HCL 0.1 MG TAB PO SCH ×4 (01:16→20:14)
[2022-08-09] MEDS: AMOXICILLIN/CLAVULANATE 875 MG TAB PO SCH ×3 (01:16→19:25)
[2022-08-09] MEDS: METOPROLOL TARTRATE 25 MG TAB PO SCH ×3 (01:17→19:25)
[2022-08-09] MEDS: SODIUM CHLORIDE 0.9% 1000ML 1,000 ML IV SCH ×2 (01:17→12:33)
--- NOTE | 2022-08-09 02:51 | History and Physical Report ---
DATE OF ADMISSION: 08/08/2022. CHIEF COMPLAINT: Request for detoxification from fentanyl. HISTORY OF PRESENT ILLNESS: This is a 37-year-old female with past medical history significant for depression; anxiety; drug abuse, fentanyl, seems to be via smoking and IV; depression. The patient was admitted in the hospital in [facility] on 05/08/2022 and was discharged to [place] on 05/13/2022 because of severe sepsis, endocarditis. At that time, the patient was also having withdrawal symptoms from IV drugs and she was having fluid overload. Received Lasix and also having septic pulmonary embolism and multifocal pneumonia and respiratory failure with hypoxia and at that time she also had anemia with hemoglobin 6.4, thought to be from sepsis. Electrolyte abnormalities, sodium of 129, magnesium 1.4. She was hospitalized in [place] from 05/13/2022 to 06/02/2022 and underwent mitral and tricuspid valve replacements, on IV antibiotic regimen for MSSA bacteremia via PICC line with stop date of 07/03/2022. The patient was discharged to [facility] and again had hospitalization at [facility] from 06/05/2022 to 06/09/2022, underwent pericardiocentesis. Discharged back to rehab center. The patient had ER visit on 06/22/2022 for back pain. Lumbar spine showed L4-L5 facet joint synovitis. Neurosurgery saw patinet and recommended no interventions, and discharged back to rehab center to finish the course of IV antibiotics as scheduled earlier. The patient was again admitted on 06/25/2022 with fevers, abdominal pain, shortness of breath and chest pain, in the setting of MSSA infective endocarditis and infected lumbar joint. The patient was found to have sepsis from acute community-acquired pneumonia and right-sided complex loculated parapneumonic effusion. The effusion was drained by chest tube placement for 3 days by thoracic surgeon and the patient did fine and discharged back to the rehab center with continuation of Ancef 2 g q. 8 hours until 07/03/2022 followed by Augmentin 875 mg p.o. b.i.d. orally up to 07/23/2022. The patient was also recommended to follow up with primary care physician, lung specialist, and infectious disease specialist within 2 weeks of hospital discharge. The patient says she was discharged from rehab around 07/04/2022 and she is again getting fentanyl from the streets. She is living with her dad. Now she comes for detox request. Seems the last dose of fentanyl was yesterday. She is complaining of some anxiety, some headache, some chest pain, shortness of breath, diarrhea, some abdominal discomfort. The patient was given clonidine and a dose of droperidol in the ER. She is somewhat shaky. Denies any alcohol use. She smokes cigarettes. Denies any blurred visions, no earache, no runny nose, no sore throat, no cough, no difficulty swallowing. Micturating fine. Hemodynamics are okay. Somewhat tachycardic. ALLERGIES: No known drug allergies. PAST MEDICAL HISTORY: As mentioned above. PAST SURGICAL HISTORY: Pericardiocentesis, removal of kidney stone, cervical cone/loop, replacement of mitral valve and tricuspid valve. MEDICATIONS: The patient is currently on Augmentin 1 tablet p.o. b.i.d., aspirin 81 mg p.o. daily, vitamin B12 1000 mcg p.o. daily, Lexapro 20 mg p.o. daily, folic acid 1 mg p.o. daily, gabapentin 300 mg p.o. b.i.d., metoprolol tartrate 25 mg p.o. b.i.d., naloxone intranasal daily p.r.n., nicotine patch transdermal daily, Zofran 4 mg p.o. q. 8 hours p.r.n. FAMILY HISTORY: Significant for aunt has cancer; brother has mental disorder; father has depression and bipolar; mother has depression; sister has mental disorder. SOCIAL HISTORY: Single, currently lives with her dad. Smokes half pack a day for last 22 years. No alcohol use. Uses IV fentanyl, last use was yesterday. REVIEW OF SYSTEMS: As per HPI. Rest of review of systems is negative. PHYSICAL EXAMINATION: GENERAL: The patient is of moderate build, not in acute distress. VITAL SIGNS: Temperature seems afebrile, pulse 115, respiratory rate 18, oxygen 98% on room air. HEENT: No pallor, no icterus. Pupils equal, round and reactive to light. Oral mucosa, absent dentition, moist. NECK: No JVD, no neck masses. CARDIOVASCULAR: S1 and S2 heard. Tachycardia. No murmurs. RESPIRATORY SYSTEM: Normal AP diameter. No accessory muscle use. No wheezing, no crackles. ABDOMEN: Soft, bowel sounds present, nontender, no distention. CENTRAL NERVOUS SYSTEM: Alert and oriented. Speech is clear. No facial droop. obeys simple commands. Moves extremities. EXTREMITIES: No edema, no erythema. LABORATORY DATA: WBC 9.9, hemoglobin 12.6, hematocrit 37.7, platelets 238. Sodium 138, potassium 4.2, chloride 107, bicarbonate 24, BUN 16, creatinine 0.5, serum glucose 100, calcium 8.9, magnesium 1.8, total bilirubin 0.6, direct bilirubin 0.1, AST 12, ALT 10, alkaline phosphatase 107. Troponin I high sensitivity 6.5, Procalcitonin 0.79. SARS-CoV-2 rapid test negative. IMAGING DATA: Chest x-ray, significant improvement in multifocal airspace opacities. Chest CT of 05/08/2022, mild residual opacities, favors carrying a resolving pneumonia. Continued radiographic followup to ensure complete resolution is recommended. Suspected trace left pleural effusion. EKG: Sinus rhythm with occasional PVCs, incomplete right bundle branch block at the rate of 82. ASSESSMENT AND PLAN: This is 37-year-old female who was recently treated for endocarditis, sepsis with community-acquired pneumonia and parapneumonic effusion s/p chest tube on right side , pericardiocentesis, ongoing IV drug abuse, who presents with detoxification request from IV fentanyl. 1. Detoxification request: IV fentanyl, last dose yesterday. ER gave clonidine and droperidol. Will continue with clonidine 0.1 mg p.o. q. 6 hours around the clock and p.r.n. withholding parameters. IV Ativan 1 mg q. 4 hours p.r.n. Closely monitor in the tele floor. Seemed to require precedix in the past. Monitor hemodynamics. Anti emetics and Imodium prn.Gentle fluids.Close monitor. 2. Recent history of endocarditis: Status post mitral and tricuspid valve replacement. Completion of the IV Ancef for MSSA bacteremia on 07/03/2022, currently on Augmentin. Also, she had a recent admission from 06/25/2022 to 06/30/2022. She had a multifocal pneumonia, status post thoracocentesis for right-sided loculated parapneumonic effusion. Currently, chest x-ray looks okay. Currently is on Augmentin for now. Follow the cultures. May need to discuss with ID for completion of antibiotics and needs close followup. Will follow blood cultures. If there is any requirement, will changed the antibiotics to IV. 3. Depression: On Lexapro. 4. Hypertension: On metoprolol with holding parameters. Currently getting clonidine. 5. History of tobacco abuse: On nicotine patch. 6. Deep venous thrombosis prophylaxis: Placed on Lovenox. DISPOSITION: Closely monitor in the tele floor. Level 1 full code. Expect to discharge home and follow with family doctor. Job ID: [id number] [facility] HOSPITALJolynn
[2022-08-09] MEDS: LORazepam 2 MG/1 ML VIAL IV PRN ×3 (05:29→21:25)
[2022-08-09] MEDS: ENOXAPARIN INJ 40 MG/0.4 ML SYR SQ SCH (05:30)
[2022-08-09 06:51] LABS: Basophils # (auto) 0.02 K/uL (0-0.2); Basophils % (auto) 0.3 %; Eosinophils # (auto) 0.04 K/uL (0-0.50); Eosinophils % (auto) 0.5 %; Hematocrit (blood only) 34.3 % (34.1-44.9); Hemoglobin 11.7 g/dl (12.0-16.0); Immature Granulocytes # (auto) 0.02 K/uL (0.00-0.02); Immature Granulocytes % (auto) 0.3 %; Lymphocytes # (auto) 1.77 K/uL (1.2-3.4); Lymphocytes % (auto) 24.3 %; Mean Corpuscular Hemoglobin 28.3 pg (25.0-34.0); Mean Corpuscular Hgb Conc 34.1 g/dL (32.0-36.0); Mean Corpuscular Volume 82.9 fL (80.0-100.0); Mean Platelet Volume 9.3 fL (9.4-12.3); Monocytes # (auto) 0.31 K/uL (0.24-0.82); Monocytes % (auto) 4.3 %; Neutrophils # (auto) 5.13 K/uL (1.4-6.5); Neutrophils % (auto) 70.3 %; Platelet Count 228 K/uL (130-400); RDW Coefficient of Variation 13.2 % (11.5-14.5); RDW Standard Deviation 39.9 fL (36.4-46.3); Red Blood Count 4.14 M/uL (3.93-5.22); White Blood Count 7.29 K/ul (4.8-10.8)
[2022-08-09 06:52] LABS: BUN Creatinine Ratio 41.2 (10-20); Calcium 8.8 mg/dl (8.5-10.1); Creatinine Clr Calc Pharmacy 117.1 ml/min; Est GFR (African American) 140.4 ml/min; Est GFR (Non-African American) 121.1 ml/min; Magnesium 1.9 mg/dl (1.7-2.4); Potassium 4.3 mmol/L (3.5-5.1)
[2022-08-09] MEDS: ESCITALOPRAM OXALATE 20 MG TAB PO SCH (08:45)
[2022-08-09] MEDS: ASPIRIN 81 MG ECTAB PO SCH (08:45)
[2022-08-09] MEDS: CYANOCOBALAMIN (B-12) 500 MCG TABLET PO SCH (08:45)
[2022-08-09] MEDS: FOLIC ACID 1 MG TAB PO SCH (08:45)
--- NOTE | 2022-08-09 11:19 | Electrocardiogram Report ---
Test Reason : Blood Pressure : / mmHG Vent. Rate : 082 BPM Atrial Rate : 082 BPM P-R Int : 122 ms QRS Dur : 098 ms QT Int : 402 ms P-R-T Axes : 082 012 056 degrees QTc Int : 469 ms Poor data quality, interpretation may be adversely affected Sinus rhythm with occasional Premature ventricular complexes Incomplete right bundle branch block Borderline ECG When compared with ECG of 12-MAY-2022 19:34, Premature ventricular complexes are now Present Confirmed by Eric Henson ([id number]) on 08/09/2022 11:19:19 AM Referred By: REFERRED SELF Confirmed By:Jimbo Henson
[2022-08-09] MEDS: NICOTINE 14 MG/24 HR PATCH TD SCH (11:22)
[2022-08-09 15:17] LABS: Appearance Urine Cloudy (Clear); Bacteria Urine Automated Negative (Negative); Bilirubin Urine Negative (Negative); Blood Urine 1+ (Negative); Color Urine Yellow; Epithelial Cell Urine Auto >30 /lpf (0-5); Glucose Urine UA Negative (Negative); Ketones Urine Negative (Negative); Leukocyte Esterase Urine 3+ (Negative); Nitrite Urine Negative (Negative); Protein Urine Negative (Negative); Specific Gravity Urine 1.019 (1.000-1.030); Urobilinogen Urine Negative (Negative); WBC Urine Automated >30 /hpf (0-5); pH Urine 6.5 (4.5-7.5)
[2022-08-09] MEDS: ACETAMINOPHEN 325 MG TAB PO PRN (15:18)
[2022-08-09 15:42] LABS: Calcium Oxalate Crystals Urine Present (None Prsent); Trichomonas Urine Present (None Prsent)
--- NOTE | 2022-08-09 16:13 | Hospitalist Progress Note ---
Date of Service August 09, 2022 Assessment & Plan (1) Acute opioid withdrawal: Plan: Patient is a 37 yr female who was recently treated for endocarditis, sepsis with community-acquired pneumonia and parapneumonic effusion s/p chest tube on right side , pericardiocentesis, ongoing IV drug abuse, who presents with detoxification request from IV fentanyl. Acute Opioid Withdrawal Last IV fentanyl use 08/07/22 -Received clonidine and droperidol in ED Continue Clonidine and Ativan PRN May need precedix if worsens Continue IV fluids Needs Rehab placement Recent H/O Endocarditis: S/P Mitral and tricuspid valve replacement Completion of the IV Ancef for MSSA bacteremia on 07/03/2022 Currently on Augmentin H/O Multifocal pneumonia in Jun 2022: S/P Thoracocentesis for right-sided loculated parapneumonic effusion -CXR:Significant improvement in multifocal airspace opacities since chest CT of May 08, 2022. Mild residual opacities favor scarring or resolving pneumonia. Continued radiographic follow-up to ensure complete resolution is recommended. Suspected trace left pleural effusion. -Blood, urine cultures pending Needs follow-up with infectious disease Depression: On Lexapro Hypertension: Continue metoprolol H/O Tobacco abuse: On nicotine patch DVT Px: Lovenox SQ Code Status Full code Admission and Anticipated Discharge Date Admission Date: August 08, 2022 Subjective Patient is seen and examined at bedside States having generalized pain and feels anxious No other complaints Denies any chest pain, dyspnea, dizziness, nausea No other complaints Review of Systems Review of Systems: All systems reviewed & are unremarkable except as noted in Subjective Physical Exam Physical Exam: Physical Exam: Vitals signs as noted above General Appearance:Moderately built and nourished, no apparent distress Head: normocephalic, Atraumatic Eyes: normal inspection, EOMI Neck: supple, Trachea midline Respiratory/Chest: Normal breath sounds, CTA, No accessory muscle use Cardiovascular: S1, S2, No murmur Abdomen/GI:Soft, Non tender, Bowel sounds present Extremities/Musculoskeletal:normal inspection, no edema Neurologic/Psych:AAOX3, grossly no focal neurological deficits Skin: normal color, warm Results & Data Results & Data ([facility]) Vital Signs (Past 12 Hours) Vital Signs Temp Pulse Resp BP Pulse Ox Pulse Ox O2 Del Method 08/09/22 15:01 37.1 C 81 19 103/65 95 Room Air 08/09/22 15:00 95 08/09/22 08:40 72 20 136/101 H 98 Room Air 08/09/22 05:32 66 20 134/75 98 Room Air O2 Del Method 08/09/22 15:01 08/09/22 15:00 Room Air 08/09/22 08:40 08/09/22 05:32 Laboratory Results Short CBC 08/08/22 08/09/22 Range/Units 16:30 05:49 WBC 9.96 7.29 (4.8-10.8) K/ul Hgb 12.6 11.7 L (12.0-16.0) g/dl Hct 37.7 34.3 (34.1-44.9) % Plt Count 238 228 (130-400) K/uL BMP 08/08/22 08/09/22 16:30 05:49 Sodium 138 138 Potassium 4.2 4.3 Chloride 107 109 H Carbon Dioxide 24 23 BUN 16 21 Creatinine 0.59 L 0.51 L Glucose 100 H 110 H Calcium 8.9 8.8 Liver Function 08/08/22 Range/Units 16:30 Total Bilirubin 0.6 (0.2-1.0) mg/dl Direct Bilirubin 0.1 (0-0.2) mg/dl AST 12 L (13-39) U/L ALT 10 (7-52) U/L Alkaline Phosphatase 107 H (34-104) U/L Albumin 3.6 (3.4-5.0) gm/dl Urine 08/09/22 Range/Units 15:00 Urine Color Yellow Urine Appearance Cloudy A (Clear) Urine pH 6.5 (4.5-7.5) Ur Specific [place] 1.019 (1.000-1.030) Urine Protein Negative (Negative) Urine Glucose (UA) Negative (Negative)
[2022-08-09 16:21] LABS: Amphetamines+Metham, Urine Neg (Neg); Barbiturates, Urine Neg (Neg); Benzodiazepine, Urine Neg (Neg); Cocaine, Urine Neg (Neg); MDMA (Ecstacy), Urine Neg (Neg); Methadone, Urine Neg (Neg); Opiate, Urine Neg (Neg); Phencyclidine, Urine Neg (Neg)
[2022-08-10] MEDS: LORazepam 2 MG/1 ML VIAL IV PRN ×5 (01:55→22:02)
[2022-08-10] MEDS: cloNIDine HCL 0.1 MG TAB PO SCH ×3 (04:51→19:59)
[2022-08-10] MEDS: ENOXAPARIN INJ 40 MG/0.4 ML SYR SQ SCH (04:51)
[2022-08-10 08:12] LABS: Calcium 8.6 mg/dl (8.5-10.1); Creatinine Clr Calc Pharmacy 119.5 ml/min; Est GFR (African American) 141.3 ml/min; Est GFR (Non-African American) 121.9 ml/min; Potassium 4.4 mmol/L (3.5-5.1)
[2022-08-10] MEDS: ESCITALOPRAM OXALATE 20 MG TAB PO SCH (08:52)
[2022-08-10] MEDS: METOPROLOL TARTRATE 25 MG TAB PO SCH ×2 (08:52→19:59)
[2022-08-10] MEDS: CYANOCOBALAMIN (B-12) 500 MCG TABLET PO SCH (08:52)
[2022-08-10] MEDS: AMOXICILLIN/CLAVULANATE 875 MG TAB PO SCH ×2 (08:53→19:59)
[2022-08-10] MEDS: ASPIRIN 81 MG ECTAB PO SCH (08:53)
[2022-08-10] MEDS: FOLIC ACID 1 MG TAB PO SCH (08:53)
[2022-08-10] MEDS: NICOTINE 14 MG/24 HR PATCH TD SCH ×2 (08:53→11:01)
[2022-08-10] MEDS: GABAPENTIN 300 MG CAP PO SCH ×2 (08:53→19:59)
[2022-08-10 09:28] LABS: Hematocrit (blood only) 35.5 % (37.0-47.0); Hemoglobin 12.1 g/dl (12.0-16.0); Mean Corpuscular Hemoglobin 28.2 pg (25.0-34.0); Mean Corpuscular Hgb Conc 34.1 g/dL (32.0-36.0); Mean Corpuscular Volume 82.8 fL (80.0-100.0); Mean Platelet Volume 9.9 fL (9.4-12.4); Platelet Count 225 K/uL (130-400); RDW Coefficient of Variation 13.7 % (11.5-14.5); RDW Standard Deviation 41.1 fL (36.4-46.3); Red Blood Count 4.29 M/uL (4.20-5.40); White Blood Count 6.88 K/ul (4.8-10.8)
--- NOTE | 2022-08-10 14:59 | Hospitalist Progress Note ---
Date of Service August 10, 2022 Assessment & Plan (1) Acute opioid withdrawal: Plan: Patient is a 37 yr female who was recently treated for endocarditis, sepsis with community-acquired pneumonia and parapneumonic effusion s/p chest tube on right side , pericardiocentesis, ongoing IV drug abuse, who presents with detoxification request from IV fentanyl. Acute Opioid Withdrawal Last IV fentanyl use 08/07/22 -Received clonidine and droperidol in ED Continue Clonidine and Ativan PRN May need Precedex if worsens Received IV fluids Needs Rehab placement Monitor Recent H/O Endocarditis: S/P Mitral and tricuspid valve replacement Completion of the IV Ancef for MSSA bacteremia on 07/03/2022 Currently on Augmentin H/O Multifocal pneumonia in Jun 2022: S/P Thoracocentesis for right-sided loculated parapneumonic effusion -CXR:Significant improvement in multifocal airspace opacities since chest CT of May 08, 2022. Mild residual opacities favor scarring or resolving pneumonia. Continued radiographic follow-up to ensure complete resolution is recommended. Suspected trace left pleural effusion. -Blood, urine cultures: Negative to date Needs follow-up with infectious disease Depression: On Lexapro Hypertension: Continue metoprolol H/O Tobacco abuse: On nicotine patch DVT Px: Lovenox SQ Code Status Full code Admission and Anticipated Discharge Date Admission Date: August 08, 2022 Subjective Patient is seen and examined at bedside No new complaints Anxious intermittently BP better Discussed with Patient's sister over the phone Denies any chest pain, dyspnea, dizziness, nausea Review of Systems Review of Systems: All systems reviewed & are unremarkable except as noted in Subjective Physical Exam Physical Exam: Physical Exam: Vitals signs as noted above General Appearance:Moderately built and nourished, no apparent distress Head: normocephalic, Atraumatic Eyes: normal inspection, EOMI Neck: supple, Trachea midline Respiratory/Chest: Normal breath sounds, CTA, No accessory muscle use Cardiovascular: S1, S2, No murmur Abdomen/GI:Soft, Non tender, Bowel sounds present Extremities/Musculoskeletal:normal inspection, no edema Neurologic/Psych:AAOX3, grossly no focal neurological deficits Skin: normal color, warm Results & Data Results & Data ([facility]) Vital Signs (Past 12 Hours) Vital Signs Temp Pulse Pulse Pulse Resp BP Pulse Ox 08/10/22 08:00 56 L 08/10/22 11:15 36.8 C 60 16 126/86 97 08/10/22 07:18 36.8 C 59 L 20 149/96 H 96 O2 Del Method 08/10/22 08:00 08/10/22 11:15 Room Air 08/10/22 07:18 Room Air Laboratory Results Short CBC 08/10/22 Range/Units 06:22 WBC 6.88 (4.8-10.8) K/ul Hgb 12.1 (12.0-16.0) g/dl Hct 35.5 L (37.0-47.0) % Plt Count 225 (130-400) K/uL BMP 08/10/22 06:22 Sodium 138 Potassium 4.4 Chloride 110 H Carbon Dioxide 24 BUN 19 Creatinine 0.50 L Glucose 109 H Calcium 8.6 Urine 08/09/22 Range/Units 15:00 Urine Color Yellow Urine Appearance Cloudy A (Clear) Urine pH 6.5 (4.5-7.5) Ur Specific [place] 1.019 (1.000-1.030) Urine Protein Negative (Negative) Urine Glucose (UA) Negative (Negative)
[2022-08-10] MEDS: ONDANSETRON INJ 2 MG/ML 2 ML VIAL IV PRN (20:03)
[2022-08-10] MEDS: ACETAMINOPHEN 325 MG TAB PO PRN (22:00)
[2022-08-11] MEDS: LORazepam 2 MG/1 ML VIAL IV PRN ×2 (02:04→06:09)
[2022-08-11] MEDS: ONDANSETRON INJ 2 MG/ML 2 ML VIAL IV PRN (02:04)
[2022-08-11] MEDS: cloNIDine HCL 0.1 MG TAB PO SCH ×2 (03:45→12:30)
[2022-08-11] MEDS: ENOXAPARIN INJ 40 MG/0.4 ML SYR SQ SCH (06:09)
[2022-08-11] MEDS ORDERED: LORazepam 2 MG/1 ML VIAL IV PRN (08:29)
[2022-08-11] MEDS: ASPIRIN 81 MG ECTAB PO SCH (10:19)
[2022-08-11] MEDS: GABAPENTIN 300 MG CAP PO SCH (10:19)
[2022-08-11] MEDS: METOPROLOL TARTRATE 25 MG TAB PO SCH (10:19)
[2022-08-11] MEDS: AMOXICILLIN/CLAVULANATE 875 MG TAB PO SCH (10:20)
[2022-08-11] MEDS: CYANOCOBALAMIN (B-12) 500 MCG TABLET PO SCH (10:20)
[2022-08-11] MEDS: FOLIC ACID 1 MG TAB PO SCH (10:20)
[2022-08-11] MEDS: NICOTINE 14 MG/24 HR PATCH TD SCH (10:20)
[2022-08-11] MEDS: ESCITALOPRAM OXALATE 20 MG TAB PO SCH (10:20)
--- NOTE | 2022-08-11 14:35 | Hospitalist Progress Note ---
Date of Service August 11, 2022 Assessment & Plan (1) Acute opioid withdrawal: Plan: Patient is a 37 yr female who was recently treated for endocarditis, sepsis with community-acquired pneumonia and parapneumonic effusion s/p chest tube on right side , pericardiocentesis, ongoing IV drug abuse, who presents with detoxification request from IV fentanyl. Acute Opioid Withdrawal Last IV fentanyl use 08/07/22 -Received clonidine and droperidol in ED Continue Clonidine and Ativan PRN May need Precedex if worsens Received IV fluids Advised drug rehab--Patient currently not interested Minimize sedative meds as able Recent H/O Endocarditis: S/P Mitral and tricuspid valve replacement Completion of the IV Ancef for MSSA bacteremia on 07/03/2022 Continue Augmentin- 1 week course to be completed per patient H/O Multifocal pneumonia in Jun 2022: S/P Thoracocentesis for right-sided loculated parapneumonic effusion -CXR:Significant improvement in multifocal airspace opacities since chest CT of May 08, 2022. Mild residual opacities favor scarring or resolving pneumonia. Continued radiographic follow-up to ensure complete resolution is recommended. Suspected trace left pleural effusion. -Blood, urine cultures: Negative to date Needs follow-up with infectious disease Depression: On Lexapro Hypertension: Continue metoprolol H/O Tobacco abuse: On nicotine patch DVT Px: Lovenox SQ Code Status Full code Admission and Anticipated Discharge Date Admission Date: August 08, 2022 Subjective Patient is seen and examined at bedside Slept well overnight No new complaints Not interested in Drug rehab Denies any chest pain, dyspnea, dizziness, nausea, abd pain Review of Systems Review of Systems: All systems reviewed & are unremarkable except as noted in Subjective Physical Exam Physical Exam: Physical Exam: Vitals signs as noted above General Appearance:Moderately built and nourished, no apparent distress Head: normocephalic, Atraumatic Eyes: normal inspection, EOMI Neck: supple, Trachea midline Respiratory/Chest: Normal breath sounds, CTA, No accessory muscle use Cardiovascular: S1, S2, No murmur Abdomen/GI:Soft, Non tender, Bowel sounds present Extremities/Musculoskeletal:normal inspection, no edema Neurologic/Psych:AAOX3, grossly no focal neurological deficits Skin: normal color, warm Results & Data Results & Data ([facility]) Vital Signs (Past 12 Hours) Vital Signs Temp Pulse Pulse Resp BP Pulse Ox O2 Del Method 08/11/22 08:00 68 08/11/22 06:58 37.0 C 64 18 137/91 96 Room Air 08/11/22 03:42 37 C 66 18 126/89 97 Room Air
--- NOTE | 2022-08-11 18:42 | Communication Note ---
Date of Service: August 11, 2022 Patient left AGAINST MEDICAL ADVICE despite explaining the risks and complications.
--- NOTE | 2022-08-11 18:44 | Discharge Summary ---
Date of Service August 11, 2022 Admission HPI Per Admitting Provider CHIEF COMPLAINT: Request for detoxification from fentanyl. HISTORY OF PRESENT ILLNESS: This is a 37-year-old female with past medical history significant for depression; anxiety; drug abuse, fentanyl, seems to be via smoking and IV; depression. The patient was admitted in the hospital in [facility] on 05/08/2022 and was discharged to [place] on 05/13/2022 because of severe sepsis, endocarditis. At that time, the patient was also having withdrawal symptoms from IV drugs and she was having fluid overload. Received Lasix and also having septic pulmonary embolism and multifocal pneumonia and respiratory failure with hypoxia and at that time she also had anemia with hemoglobin 6.4, thought to be from sepsis. Electrolyte abnormalities, sodium of 129, magnesium 1.4. She was hospitalized in [place] from 05/13/2022 to 06/02/2022 and underwent mitral and tricuspid valve replacements, on IV antibiotic regimen for MSSA bacteremia via PICC line with stop date of 07/03/2022. The patient was discharged to [facility] and again had hospitalization at [place] from 06/05/2022 to 06/09/2022, underwent pericardiocentesis. Discharged back to rehab center. The patient had ER visit on 06/22/2022 for back pain. Lumbar spine showed L4-L5 facet joint synovitis. Neurosurgery saw patinet and recommended no interventions, and discharged back to rehab center to finish the course of IV antibiotics as scheduled earlier. The patient was again admitted on 06/25/2022 with fevers, abdominal pain, shortness of breath and chest pain, in the setting of MSSA infective endocarditis and infected lumbar joint. The patient was found to have sepsis from acute community-acquired pneumonia and right-sided complex loculated parapneumonic effusion. The effusion was drained by chest tube placement for 3 days by thoracic surgeon and the patient did fine and discharged back to the rehab center with continuation of Ancef 2 g q. 8 hours until 07/03/2022 followed by Augmentin 875 mg p.o. b.i.d. orally up to 07/23/2022. The patient was also recommended to follow up with primary care physician, lung specialist, and infectious disease specialist within 2 weeks of hospital discharge. The patient says she was discharged from rehab around 07/04/2022 and she is again getting fentanyl from the streets. She is living with her dad. Now she comes for detox request. Seems the last dose of fentanyl was yesterday. She is complaining of some anxiety, some headache, some chest pain, shortness of breath, diarrhea, some abdominal discomfort. The patient was given clonidine and a dose of droperidol in the ER. She is somewhat shaky. Denies any alcohol use. She smokes cigarettes. Denies any blurred visions, no earache, no runny nose, no sore throat, no cough, no difficulty swallowing. Micturating fine. Hemodynamics are okay. Somewhat tachycardic. Admission Exam Per Admitting Provider PHYSICAL EXAMINATION: GENERAL: The patient is of moderate build, not in acute distress. VITAL SIGNS: Temperature seems afebrile, pulse 115, respiratory rate 18, oxygen 98% on room air. HEENT: No pallor, no icterus. Pupils equal, round and reactive to light. Oral mucosa, absent dentition, moist. NECK: No JVD, no neck masses. CARDIOVASCULAR: S1 and S2 heard. Tachycardia. No murmurs. RESPIRATORY SYSTEM: Normal AP diameter. No accessory muscle use. No wheezing, no crackles. ABDOMEN: Soft, bowel sounds present, nontender, no distention. CENTRAL NERVOUS SYSTEM: Alert and oriented. Speech is clear. No facial dr oop. obeys simple commands. Moves extremities. EXTREMITIES: No edema, no erythema. Principal Diagnosis Acute Opioid Withdrawal Discharge Data Allergies Allergy/AdvReac Type Severity Reaction Status Date / Time No Known Allergies Allergy Unknown Verified 08/08/22 20:34 Consultations 08/08/22 19:29 ED Decision to Admit Stat Hospital Course (1) Acute opioid withdrawal: Patient is a 37 yr female who was recently treated for endocarditis, sepsis with community-acquired pneumonia and parapneumonic effusion s/p chest tube on right side , pericardiocentesis, ongoing IV drug abuse, who presents with detoxification request from IV fentanyl. Acute Opioid Withdrawal Last IV fentanyl use 08/07/22 -Received clonidine and droperidol in ED Continue Clonidine and Ativan PRN May need Precedex if worsens Received IV fluids Advised drug rehab--Patient currently not interested Minimize sedative meds as able Recent H/O Endocarditis: S/P Mitral and tricuspid valve replacement Completion of the IV Ancef for MSSA bacteremia on 07/03/2022 Continue Augmentin- 1 week course to be completed per patient H/O Multifocal pneumonia in Jun 2022: S/P Thoracocentesis for right-sided loculated parapneumonic effusion -CXR:Significant improvement in multifocal airspace opacities since chest CT of May 08, 2022. Mild residual opacities favor scarring or resolving pneumonia. Continued radiographic follow-up to ensure complete resolution is recommended. Suspected trace left pleural effusion. -Blood, urine cultures: Negative to date Needs follow-up with infectious disease Depression: On Lexapro Hypertension: Continue metoprolol H/O Tobacco abuse: On nicotine patch DVT Px: Lovenox SQ Code Status Full code Patient left AGAINST MEDICAL ADVICE despite explaining the risks and complications. Total Time Total Time Spent Total Time Spent (In Minutes): 37 minutes Discharge Plan Discharge Items Patient Disposition: Against Medical Advice Reason For Visit: DETOX REQUEST Activity: As commented below Non-emergency contact: Primary Care Provider Follow-up/Referrals: Lenny Cleary MD [Primary Care Provider] - (Date & Time 08/17/2022 3:00 PM Provider Lenny Cleary MD Department Family Medicine [facility] ) Pending Studies at Discharge: No Stand-Alone Forms: [facility] [employer], Smoking Cessation Medications and DC Order Prescriptions: Continued gabapentin 300 mg capsule 300 mg PO BID nicotine 14 mg/24 hr patch 24 hour 1 patch transdermal DAILY ondansetron HCl 4 mg tablet 4 mg PO Q8H PRN (Reason: Nausea) folic acid 1 mg tablet 1 mg PO QAM metoprolol tartrate 25 mg tablet 25 mg PO .AMHS cyanocobalamin (vitamin B-12) 1,000 mcg tablet 1,000 mcg PO DAILY aspirin [Aspir-Low] 81 mg Tablet,Delayed Release (Dr/Ec) 81 mg PO QAM escitalopram oxalate 20 mg tablet 20 mg PO DAILY amoxicillin-pot clavulanate 875-125 mg tablet 1 tab PO AMPM Rx Instructions: BEGIN 06/30/22 X 20 DAYS naloxone 4 mg/actuation spray,non-aerosol 1 spray INTRANASAL DAILY PRN (Reason: Opioid Overdose) Discharge Orders: Left Against Medical Advice (Routine); Ordered 08/11/22 Ordered By: Tomas Collins Admission Data Admit Date/Time: 08/08/22 21:49 Attending Provider: Tomas Collins Admit Provider: Deangelo Laureano Primary Care Provider: Lenny Cleary Other Providers: Deangelo Laureano
== END 2022-08-11 18:47 | disposition left against medical advice (07) | DRG 894 ==
LOC: ED 15:47 → EDINP 21:49 → 2E 08-09 00:33